=== PATIENT | female | born 1950 | race African-American/Black ===

== ENCOUNTER 2016-06-07 18:33 | Emergency (ER) | payer MEDICARE, MEDICAID ==
--- NOTE | 2016-06-07 18:50 | ER Document Report ---
ED Medical Screen (RME) - General Chief Complaint: Skin Problem Stated Complaint: BLISTERS/RASH ON BACK AND LEGS Notes: Rash to head back. Several siblings have similar rashes. I greeted and performed a rapid initial assessment of this patient. Comprehensive ED assessment and evaluation of the patient, analysis of test results and completion of the medical decision making process will be conducted by additional ED providers. TRAVEL OUTSIDE OF THE [place] IN LAST 30 DAYS: No - Related Data Allergies/Adverse Reactions: No Known Allergies Allergy (Verified 10/18/15 20:38) Past Medical History - Past Medical History Cardiac Medical History: Reports: Hx Hypertension Pulmonary Medical History: Reports: Hx Asthma Endocrine Medical History: Reports: Hx Diabetes Mellitus Type 1, Hx Diabetes Mellitus Type 2 GI Medical History: Reports: Hx Gastroesophageal Reflux Disease, Hx Hepatitis Psychiatric Medical History: Reports: Hx Depression Infectious Medical History: Reports: Hx Hepatitis Past Surgical History: Reports: Hx Abdominal Surgery - Per patient. - Immunizations Hx Diphtheria, Pertussis, Tetanus Vaccination: No Physical Exam - Vital signs Vitals: Temp Pulse Resp BP Pulse Ox 98.1 F 67 14 122/94 H 100 06/07/16 18:45 06/07/16 18:45 06/07/16 18:45 06/07/16 18:45 06/07/16 18:45 Course - Vital Signs Vital signs: Temp Pulse Resp BP Pulse Ox 98.1 F 67 14 122/94 H 100 06/07/16 18:45 06/07/16 18:45 06/07/16 18:45 06/07/16 18:45 06/07/16 18:45
[2016-06-07] MEDS ORDERED: DIPHENHYDRAMINE HCL 25 MG CAPSULE PO ONE (21:21)
--- NOTE | 2016-06-07 21:28 | ER Document Report ---
ED Skin Rash/Insect Bite/Abscs - General Chief Complaint: Skin Problem Stated Complaint: BLISTERS/RASH ON BACK AND LEGS Time seen by provider: 21:20 Notes: Patient is a 66-year-old female with a history of hepatitis C that comes emergency department for a rash that is been present for a month but is worsening. Rash is present on arms, legs, back. She states she cannot stop scratching the rash because it is itchy, states that white bumps appear at the top of the rash and then she scratches it off and remove is a "little ribbon paperlike substance" which then resolves the area. Denies any fever chills, redness, she states that she's been applying a cream from her provider which is clotrimazole and betamethasone, she is currently taking Augmentin, she states the rash has not stopped. Take Benadryl helps but itching soon returned. She has not seen a coffee grinder. TRAVEL OUTSIDE OF THE [place] IN LAST 30 DAYS: No - Related Data Allergies/Adverse Reactions: No Known Allergies Allergy (Verified 10/18/15 20:38) Past Medical History - General Information source: Patient - Social History Smoking Status: Never Smoker Frequency of alcohol use: None Drug Abuse: None Lives with: Alone Family History: Reviewed & Not Pertinent Patient has suicidal ideation: No Patient has homicidal ideation: No - Past Medical History Cardiac Medical History: Reports: Hx Hypertension Pulmonary Medical History: Reports: Hx Asthma Endocrine Medical History: Reports: Hx Diabetes Mellitus Type 2 Renal/ Medical History: Denies: Hx Peritoneal Dialysis GI Medical History: Reports: Hx Gastroesophageal Reflux Disease, Hx Hepatitis Psychiatric Medical History: Reports: Hx Depression Infectious Medical History: Reports: Hx Hepatitis Past Surgical History: Reports: Hx Abdominal Surgery - Per patient. - Immunizations Hx Diphtheria, Pertussis, Tetanus Vaccination: No Review of Systems - Review of Systems Constitutional: No symptoms reported EENT: No symptoms reported Cardiovascular: No symptoms reported Respiratory: No symptoms reported Gastrointestinal: No symptoms reported Genitourinary: No symptoms reported Female Genitourinary: No symptoms reported Musculoskeletal: No symptoms reported Skin: See HPI Hematologic/Lymphatic: No symptoms reported Neurological/Psychological: No symptoms reported Physical Exam - Vital signs Vitals: Temp Pulse Resp BP Pulse Ox 98.1 F 67 14 122/94 H 100 06/07/16 18:45 06/07/16 18:45 06/07/16 18:45 06/07/16 18:45 06/07/16 18:45 Interpretation: Normal - General General appearance: Appears well, Alert, Anxious In distress: None - Patient scratching frequently, otherwise no distress noted - HEENT Head: Normocephalic, Atraumatic Eyes: Normal Pupils: PERRL - Respiratory Respiratory status: No respiratory distress Chest status: Nontender Breath sounds: Normal Chest palpation: Normal - Cardiovascular Rhythm: Regular Heart sounds: Normal auscultation Murmur: No - Abdominal Inspection: Normal Distension: No distension Bowel sounds: Normal Tenderness: Nontender Organomegaly: No organomegaly - Back Back: Normal, Nontender - Extremities General upper extremity: Normal inspection, Nontender, Normal color, Normal ROM , Normal temperature General lower extremity: Normal inspection, Nontender, Normal color, Normal ROM , Normal temperature, Normal weight bearing. No: Noman's sign - Neurological Neuro grossly intact: Yes Cognition: Normal Orientation: AAOx4 Liscomb Coma Scale Eye Opening: Spontaneous Liscomb Coma Scale Verbal: Oriented Chelsea Coma Scale Motor: Obeys Commands Chelsea Coma Scale Total: 15 Speech: Normal Motor strength normal: LUE, RUE, LLE, RLE Sensory: Normal - Psychological Associated symptoms: Normal affect, Normal mood - Skin Skin Temperature: Warm Skin Moisture: Dry Skin Color: Normal Skin irregularity: Rash - Diffuse rash over the body, itchy, papular areas have small white surface but are not significantly tender, there is no concerning warmth or erythema around the areas, the areas are scattered over the shoulders , back, arms, legs Course - Re-evaluation Re-evalutation: Diffuse rash over the body, itchy, areas have small white surface but are not significantly tender, there is no concerning warmth or erythema around the areas , the areas are scattered over the shoulders, back, arms, legs. Patient constantly scratching. Unremarkable examination otherwise. Patient reports that use of her cream has helped but has not resolved her problem, patient is a [address] on Augmentin, advised to continue this because she will not stop scratching (to help avoid infection). Discussed starting steroids versus dermatology referral, agreed to dermatology referral is probably the best for patient's diagnosis of ongoing issue for the past month. Discussed return precautions including fever, spreading redness, swelling, or any other concerning symptoms. Patient states understanding and agreement. - Vital Signs Vital signs: Temp Pulse Resp BP Pulse Ox 98.3 F 100 18 146/85 H 100 06/07/16 21:52 06/07/16 21:52 06/07/16 21:52 06/07/16 21:52 06/07/16 21:52 Discharge - Discharge Clinical Impression: Skin rash Condition: Stable Disposition: HOME, SELF-CARE Additional Instructions: Take the Benadryl as prescribed for itching, tried to rub instead of scratch, because of our he scratched areas that could be infected in the future please take the Augmentin as prescribed. Continue the cream as directed, however please call tomorrow and follow-up with dermatology for diagnosis and management of this rash. Return to the emergency department for any concerning or worsening symptoms including redness or abnormal heat to the skin, fever, or any other concerning symptoms. Prescriptions: Betamethasone Dipropionate 1 applic TP DAILY #1 tube Diphenhydramine HCl [Benadryl] 25 mg PO Q6 PRN #30 capsule PRN Reason: Referrals: EWELINA AVELAR DO [ACTIVE STAFF] - Follow up tomorrow
[2016-06-07 21:54] VITALS: BP 146/85
== END 2016-06-07 21:52 | disposition home or self-care (01) ==
LOC: ER 18:33
DX: R21 Rash and other nonspecific skin eruption (principal); L29.8 Other pruritus; Z86.19 Personal history of other infectious and parasitic diseases; E11.9 Type 2 diabetes mellitus without complications; I10 Essential (primary) hypertension; J45.909 Unspecified asthma, uncomplicated
CPT/HCPCS: 99283

== ENCOUNTER 2016-08-17 16:56 | Emergency (ER) | payer MEDICARE ==
[2016-08-17] MEDS ORDERED: IBUPROFEN 600 MG TABLET PO ONE (18:48)
--- NOTE | 2016-08-17 19:39 | ER Document Report ---
HPI - HPI Patient complains to provider of: fall Pain Level: 2 Context: Patient is a 66-year-old female presents emergency Department complaining of a fall with neck pain and shoulder pain for the past 2 days. Patient denies any head injury, LOC, nausea, vomiting, altered mental status, dizziness or confusion. Patient states that she has pain along her neck as well as her left shoulder. Pain with movement. Denies any previous injury to the sites for surgeries. Medical history significant for type I diabetes, hypertension Sees Dr. Valerio De La Fuente his primary care - CARDIOVASCULAR Cardiovascular: DENIES: Chest pain - REPRODUCTIVE Reproductive: DENIES: : - DERM Skin Color: Normal Past Medical History - Social History Smoking Status: Former Smoker Chew tobacco use (# tins/day): No Frequency of alcohol use: None Drug Abuse: None Family History: Reviewed & Not Pertinent - Past Medical History Cardiac Medical History: Reports: Hx Hypertension Pulmonary Medical History: Reports: Hx Asthma Endocrine Medical History: Reports: Hx Diabetes Mellitus Type 1, Hx Diabetes Mellitus Type 2 Renal/ Medical History: Denies: Hx Peritoneal Dialysis GI Medical History: Reports: Hx Gastroesophageal Reflux Disease, Hx Hepatitis Psychiatric Medical History: Reports: Hx Depression Infectious Medical History: Reports: Hx Hepatitis Past Surgical History: Reports: Hx Abdominal Surgery - Per patient. - Immunizations Hx Diphtheria, Pertussis, Tetanus Vaccination: No Vertical Provider Document - CONSTITUTIONAL Agree With Documented VS: Yes Exam Limitations: No Limitations General Appearance: WD/WN, No Apparent Distress Notes: PHYSICAL EXAM GENERAL: Alert, interacts well. HEAD: Normocephalic, atraumatic. EYES: Pupils equal, round, and reactive to light. Extraocular movements intact. ENT: Oral mucosa moist, tongue midline. NECK: Full range of motion. Supple. Trachea midline. LUNGS: Clear to auscultation bilaterally, no wheezes, rales, or rhonchi. No respiratory distress. HEART: Regular rate and rhythm. No murmurs, gallops, or rubs. ABDOMEN: Soft, nondistended, nontender. No guarding, rebound, or rigidity.. Bowel sounds present in all 4 quadrants. EXTREMITIES: Moves all 4 extremities spontaneously. No edema, radial and dorsalis pedis pulses 2/4 bilaterally. No cyanosis. NEUROLOGICAL: Alert and oriented x4. Normal speech. PSYCH: Normal affect, normal mood. SKIN: Warm, dry, normal turgor. No rashes or lesions noted. - INFECTION CONTROL TRAVEL OUTSIDE OF THE [place] IN LAST 30 DAYS: No - RESPIRATORY O2 Sat by Pulse Oximetry: 100 Course - Re-evaluation Re-evalutation: 08/17/16 21:11 Patient is a 66-year-old female who is hemodynamically stable, no acute distress and afebrile. No evidence of fracture on x-ray. Discussed with patient muscular skeletal care for muscle strain and can follow-up with primary care as needed - Vital Signs Vital signs: Temp Pulse Resp BP Pulse Ox 98.4 F 111 H 149/87 H 100 08/17/16 17:39 08/17/16 17:39 08/17/16 17:39 08/17/16 17:39 - Diagnostic Test Radiology reviewed: Image reviewed, Reports reviewed Discharge - Discharge Clinical Impression: Muscle strain Condition: Good Disposition: HOME, SELF-CARE Instructions: Muscle Strain ([facility]), Elevation & Warmth ([facility]), Ice Packs ([facility]), Use of Ivgx-Vfs-Iuribpp Ibuprofen ([facility]), Acetaminophen Forms: Elevated Blood Pressure Referrals: VALERIO DE LA FUENTE MD [Primary Care Provider] - Follow up as needed
[2016-08-17 20:39] VITALS: BP 133/82
== END 2016-08-17 20:27 | disposition home or self-care (01) ==
LOC: ER 16:56
DX: S16.1XXA Strain of muscle, fascia and tendon at neck level, initial encounter (principal); M54.2 Cervicalgia; M25.519 Pain in unspecified shoulder; Z87.891 Personal history of nicotine dependence; W19.XXXA Unspecified fall, initial encounter
CPT/HCPCS: 72050; 99284

== ENCOUNTER 2017-04-23 22:45 | Emergency (ER) | payer MEDICARE, MEDICAID ==
--- NOTE | 2017-04-24 00:16 | ER Document Report ---
HPI - HPI Patient complains to provider of: lump on back Onset: Other - few weeks Pain Level: Denies Context: 67 yo female with chronic pruritis for years has2 tereso middle thoracic back that she can feel but not see. Wants them checked. Has sen dr. avelar in past. Has very long acrylic nails. Associated Symptoms: None Exacerbated by: Denies Relieved by: Denies - ROS ROS below otherwise negative: Yes Systems Reviewed and Negative: Yes All other systems reviewed and negative - REPRODUCTIVE Reproductive: DENIES: : Past Medical History - Social History Smoking Status: Unknown if Ever Smoked Frequency of alcohol use: None Drug Abuse: None Lives with: Family Family History: Reviewed & Not Pertinent - Past Medical History Cardiac Medical History: Reports: Hx Hypertension Pulmonary Medical History: Reports: Hx Asthma Endocrine Medical History: Reports: Hx Diabetes Mellitus Type 2 Renal/ Medical History: Denies: Hx Peritoneal Dialysis GI Medical History: Reports: Hx Gastroesophageal Reflux Disease, Hx Hepatitis Psychiatric Medical History: Reports: Hx Depression Infectious Medical History: Reports: Hx Hepatitis Past Surgical History: Reports: Hx Abdominal Surgery - Per patient. - Immunizations Hx Diphtheria, Pertussis, Tetanus Vaccination: No Vertical Provider Document - CONSTITUTIONAL Agree With Documented VS: Yes Exam Limitations: No Limitations General Appearance: No Apparent Distress - INFECTION CONTROL TRAVEL OUTSIDE OF THE [place] IN LAST 30 DAYS: No - HEENT HEENT: Normal ENT Exam - NECK Neck: Supple. negative: Lymphadenopathy-Left, Lymphadenopathy-Right - RESPIRATORY O2 Sat by Pulse Oximetry: 100 - MUSCULOSKELETAL/EXTREMETIES Musculoskeletal/Extremeties: MAEW - NEURO Level of Consciousness: Awake, Alert - DERM Notes: extensive macular and papularchronic hyperpigmented lesions covering areas of body that she can scratch. 2 small papules healing mid t spine that are not infected. Course - Vital Signs Vital signs: Temp Pulse Resp BP Pulse Ox 98 F 98 20 150/100 H 100 04/23/17 23:22 04/23/17 23:22 04/23/17 23:22 04/23/17 23:22 04/23/17 23:22 Discharge - Discharge Clinical Impression: chronic itching/scratching Condition: Good Disposition: HOME, SELF-CARE Instructions: Itching, Nonspecific ([facility]) Additional Instructions: take your acrylic nails off and keep them off over the counter benadryl for itching see dr. avelar again next week keep skin moist with aquaphor ointment Referrals: EWELINA AVELAR, [ACTIVE STAFF] - Follow up as needed
[2017-04-24] MEDS ORDERED: DIPHENHYDRAMINE HCL 25 MG CAPSULE PO ONE (00:41)
[2017-04-24 01:27] VITALS: BP 153/81
== END 2017-04-24 01:27 | disposition home or self-care (01) ==
LOC: ER 22:45
DX: L29.9 Pruritus, unspecified (principal); R22.2 Localized swelling, mass and lump, trunk; I10 Essential (primary) hypertension; E11.9 Type 2 diabetes mellitus without complications; K21.9 Gastro-esophageal reflux disease without esophagitis
CPT/HCPCS: 99282; A9270

== ENCOUNTER 2017-04-30 18:25 | Emergency (ER) | payer MEDICARE, MEDICAID ==
[2017-04-30] MEDS ORDERED: HYDROCODONE/ACETAMINOPHEN 5-325 MG TABLET PO ONE (18:45)
--- NOTE | 2017-04-30 19:00 | ER Document Report ---
ED Medical Screen (RME) - General Mode of Arrival: Ambulatory Information source: Patient TRAVEL OUTSIDE OF THE [place] IN LAST 30 DAYS: No - General Chief Complaint: Syncope Stated Complaint: FALL/HEAD PAIN Time Seen by Provider: 04/30/17 18:39 Notes: Patient is a 67 year old female presenting to the emergency department complaining of a syncopal episode secondary to a fall. Patient states that she was walking towards her door when she ran into her window, hit her head, and proceeded to have a syncopal episode. Patient states she was unconscious for a few minutes. Patient is also complaining of left hip pain. I have greeted and performed a rapid initial assessment of this patient. A comprehensive ED assessment and evaluation of the patient, analysis of test results and completion of the medical decision making process will be conducted by additional ED providers. (SIMBA DUNN) - Related Data Allergies/Adverse Reactions: No Known Allergies Allergy (Verified 04/30/17 18:26) Past Medical History - Past Medical History Cardiac Medical History: Reports: Hx Hypertension Pulmonary Medical History: Reports: Hx Asthma Endocrine Medical History: Reports: Hx Diabetes Mellitus Type 1, Hx Diabetes Mellitus Type 2 Renal/ Medical History: Denies: Hx Peritoneal Dialysis GI Medical History: Reports: Hx Gastroesophageal Reflux Disease, Hx Hepatitis Psychiatric Medical History: Reports: Hx Depression Infectious Medical History: Reports: Hx Hepatitis Past Surgical History: Reports: Hx Abdominal Surgery - Per patient. - Immunizations Hx Diphtheria, Pertussis, Tetanus Vaccination: No Physical Exam - Vital signs Vitals: Temp Pulse Resp BP Pulse Ox 97.9 F 82 20 140/102 H 100 04/30/17 18:30 04/30/17 18:30 04/30/17 18:30 04/30/17 18:30 04/30/17 18:30 - Notes Notes: GENERAL: Alert, interacts well. No acute distress. LUNGS: Clear to auscultation bilaterally, no wheezes, rales, or rhonchi. No respiratory distress. HEART: Regular rate and rhythm. No murmurs, gallops, or rubs. EXTREMITIES: Left SI joint is tender to palpation. (SIMBA DUNN) - Vital Signs Vital signs: Temp Pulse Resp BP Pulse Ox 97.9 F 82 20 140/102 H 100 04/30/17 18:30 04/30/17 18:30 04/30/17 18:30 04/30/17 18:30 04/30/17 18:30 Scribe Documentation - Scribe Written by Keyana:: Keyana Drake, 04/30/2017 19:01 acting as scribe for :: Duarte
--- NOTE | 2017-04-30 19:37 | RADIOLOGY REPORT (SQ) ---
EXAM DESCRIPTION: CT HEAD WITHOUT COMPLETED DATE/TIME: 04/30/2017 7:17 pm REASON FOR STUDY: fall, hit head, LOC, hit left hip COMPARISON: None. TECHNIQUE: Axial images acquired through the brain without intravenous contrast. Images reviewed wi th bone, brain and subdural windows. Images stored on PACS. All CT scanners at this facility use dose modulation, iterative reconstruction, and/or weight based d osing when appropriate to reduce radiation dose to as low as reasonably achievable (ALARA). [facility]: Dose Right [facility]: CareDose [facility]: Dose Right [facility]: Teradose 4D [facility]: Engage Mobility RADIATION DOSE: CT Rad equipment meets quality standard of care and radiation dose reduction techniq ues were employed. CTDIvol: 64.6 mGy. DLP: 1034 mGy-cm. mGy. LIMITATIONS: None. FINDINGS: VENTRICLES: Age-appropriate. CEREBRUM: No masses. No hemorrhage. No midline shift. Areas of low density in the white matter mos t likely due to chronic micro-vascular ischemic change. No evidence for acute infarction. CEREBELLUM: No masses. No hemorrhage. No alteration of density. No evidence for acute infarction. EXTRAAXIAL SPACES: Mild age-related involutional change. No fluid collections. No masses. ORBITS AND GLOBE: No intra- or extraconal masses. Normal contour of globe without masses. CALVARIUM: No fracture. PARANASAL SINUSES: No fluid or mucosal thickening. SOFT TISSUES: No mass or hematoma. OTHER: No other significant finding. IMPRESSION: MILD CHRONIC CHANGES OF ATROPHY AND MICROVASCULAR ISCHEMIA. NO ACUTE PROCESS. EVIDENCE OF ACUTE STROKE: NO. TECHNICAL DOCUMENTATION: JOB ID: [id number] [place]-72 Quality ID # [id number]: Final reports with documentation of one or more dose reduction techniques (e.g., Au tomated exposure control, adjustment of the mA and/or kV according to patient size, use of iterative reconstruction technique) 2010 [employer]- All Rights Reserved
--- NOTE | 2017-04-30 19:41 | RADIOLOGY REPORT (SQ) ---
EXAM DESCRIPTION: HIP BILATERAL COMPLETED DATE/TIME: 04/30/2017 7:27 pm REASON FOR STUDY: fall, hit head, LOC, hit left hip and pelvis pain COMPARISON: None. NUMBER OF VIEWS: Two views. TECHNIQUE: AP pelvis and additional frog-leg view of the right and left hip. LIMITATIONS: None. FINDINGS: MINERALIZATION: Normal. PRIMARY HIP: No fracture or dislocation. No worrisome bone lesions. OPPOSITE HIP: No fracture or dislocation. No worrisome bone lesions. PUBIS AND ISCHIUM: No fracture. PELVIS: No fracture. SACRUM: No fracture or dislocation. No worrisome bone lesions. LOWER LUMBAR SPINE: No fracture or dislocation. No worrisome bone lesions. No significant disc disea se. SOFT TISSUES: No findings. OTHER: No other significant finding. IMPRESSION: No fracture identified. TECHNICAL DOCUMENTATION: JOB ID: [id number] [place]-72 2010 [employer]- All Rights Reserved
--- NOTE | 2017-04-30 20:00 | ER Document Report ---
ED Fall - General Mode of Arrival: Ambulatory Information source: Patient TRAVEL OUTSIDE OF THE [place] IN LAST 30 DAYS: No - HPI Occurred: This evening Where: Outdoors Context: Lost balance, Fell from standing Associated symptoms: Lost consciousness Location of injury/pain: Other - see notes above - General Chief Complaint: Syncope Stated Complaint: FALL/HEAD PAIN Time Seen by Provider: 04/30/17 18:39 Notes: 67 year old female presents to the ED complaining of falling and losing consciousness just prior to arrival. Patient reports that [place] when she ran into a window next to the swinging door, fell back, hit her posterior head, and lost consciousness for a few minutes. Patient reports that she was helped up by bystanders. Patient complains of left hip pain at bed side. Patient has been receiving 60 norco per month secondary to her back and head pain. PCP: Dr. De La Fuente ([facility]) - Related data Allergies/Adverse Reactions: No Known Allergies Allergy (Verified 04/30/17 18:26) Past Medical History - General Information source: Patient - Social History Smoking Status: Unknown if Ever Smoked Family History: Reviewed & Not Pertinent Patient has suicidal ideation: No Patient has homicidal ideation: No - Past Medical History Cardiac Medical History: Reports: Hx Hypertension Pulmonary Medical History: Reports: Hx Asthma Endocrine Medical History: Reports: Hx Diabetes Mellitus Type 1 - on insulin Renal/ Medical History: Denies: Hx Peritoneal Dialysis GI Medical History: Reports: Hx Gastroesophageal Reflux Disease, Hx Hepatitis Psychiatric Medical History: Reports: Hx Depression Infectious Medical History: Reports: Hx Hepatitis Past Surgical History: Reports: Hx Abdominal Surgery - Per patient. - Immunizations Hx Diphtheria, Pertussis, Tetanus Vaccination: No Review of Systems - Review of Systems Constitutional: No symptoms reported EENT: No symptoms reported Cardiovascular: No symptoms reported Respiratory: No symptoms reported Gastrointestinal: No symptoms reported Genitourinary: No symptoms reported Female Genitourinary: No symptoms reported Musculoskeletal: See HPI, Joint pain - left hip Skin: No symptoms reported Hematologic/Lymphatic: No symptoms reported Neurological/Psychological: No symptoms reported -: Yes All other systems reviewed and negative Physical Exam - General General appearance: Alert In distress: None - HEENT Head: Normocephalic, Atraumatic Eyes: Normal Extraocular movements intact: Yes Pupils: PERRL - Respiratory Respiratory status: No respiratory distress Breath sounds: Normal - Cardiovascular Rhythm: Regular Heart sounds: Normal auscultation - Abdominal Inspection: Normal - Back Back: Tender - lower lateral lumbar muscles are tender to palpate, bilaterally. No: Normal - Extremities General upper extremity: Normal inspection, Normal ROM General lower extremity: Normal inspection, Normal ROM - Neurological Neuro grossly intact: Yes - Psychological Associated symptoms: Normal affect, Normal mood - Skin Skin Temperature: Warm Skin Moisture: Dry Skin Color: Normal - Vital signs Vitals: Temp Pulse Resp BP Pulse Ox 97.9 F 82 20 140/102 H 100 04/30/17 18:30 04/30/17 18:30 04/30/17 18:30 04/30/17 18:30 04/30/17 18:30 - Vital Signs Vital signs: Temp Pulse Resp BP Pulse Ox 97.9 F 82 20 140/102 H 100 04/30/17 18:30 04/30/17 18:30 04/30/17 18:30 04/30/17 18:30 04/30/17 18:30 Discharge - Discharge Clinical Impression: Fall Qualifiers: Encounter type: initial encounter Qualified Code(s): W19.XXXA - Unspecified fall, initial encounter Head contusion Qualifiers: Encounter type: initial encounter Contusion of head detail: scalp Qualified Code(s): S00.03XA - Contusion of scalp, initial encounter Low back pain Qualifiers: Chronicity: acute Back pain laterality: bilateral Sciatica presence: without sciatica Qualified Code(s): M54.5 - Low back pain Additional Instructions: For tonight you should find a comfortable chair to rest in. Try ice packs to the painful areas you develop after the fall. Take Tylenol for pain as needed. Follow-up with Dr. De La Fuente next week for your chronic pain management. RETURN TO THE EMERGENCY ROOM IF ANY NEW OR WORSENING SYMPTOMS. Referrals: NAE DE LA FUENTE MD [Primary Care Provider] - Follow up in 3-5 days Scribe Attestation: 04/30/17 20:04 I personally performed the services described in the documentation, reviewed and edited the documentation which was dictated to the scribe in my presence, and it accurately records my words and actions. (ELVIN NORMAN) Scribe Documentation - Scribe Written by Siomaraibe:: Keyana Faye, 04/30/20172010 acting as scribe for :: Zulma
[2017-04-30 20:43] VITALS: BP 150/87
== END 2017-04-30 20:48 | disposition home or self-care (01) ==
LOC: ER 18:25
DX: S00.03XA Contusion of scalp, initial encounter (principal); R55 Syncope and collapse; W18.09XA Striking against other object with subsequent fall, initial encounter; Y93.89 Activity, other specified; Y92.59 Other trade areas as the place of occurrence of the external cause; M25.552 Pain in left hip; M54.5 Low back pain; R51 Headache; Z79.891 Long term (current) use of opiate analgesic; I10 Essential (primary) hypertension; J45.909 Unspecified asthma, uncomplicated; E10.9 Type 1 diabetes mellitus without complications
CPT/HCPCS: 99284; 73522; 70450; A9270

== ENCOUNTER 2017-06-02 20:38 | Emergency (ER) | payer MEDICARE, MEDICAID ==
--- NOTE | 2017-06-02 21:51 | ER Document Report ---
ED Medical Screen (RME) - General Chief Complaint: High Blood Sugar Stated Complaint: BLOOD SUGAR PROBLEMS Time Seen by Provider: 06/02/17 21:45 Mode of Arrival: Wheelchair Information source: Patient, Relative TRAVEL OUTSIDE OF THE [place] IN LAST 30 DAYS: No - HPI Onset: Last week Notes: 06/02/17 21:50 Patient arrives with multiple complaints including a cough for approximately 1 week. She complains of right posterior hip pain for about a month now. She states that she fell a month ago and was seen here at that time but continues to have pain. She states that she started having nausea vomiting today. She states that food will not stay down. Patient is a insulin-dependent diabetic, and states she has been out of her needles for the last couple of days so she has not been taking her insulin and her blood sugar is elevated. Patient is in no distress at this time. Abdomen is soft. She has some mild tenderness to palpation to the right posterior pelvis. Patient was evaluated in triage and was medically screened. Any pertinent orders based on the patient's complaints were ordered at this time. Patient will require further evaluation and will be taken to a room for further evaluation by another provider. This was explained to the patient and/or family at this time. - Related Data Allergies/Adverse Reactions: No Known Allergies Allergy (Verified 04/30/17 18:26) Past Medical History - Past Medical History Cardiac Medical History: Reports: Hx Hypertension Pulmonary Medical History: Reports: Hx Asthma Endocrine Medical History: Reports: Hx Diabetes Mellitus Type 1 - on insulin, Hx Diabetes Mellitus Type 2 Renal/ Medical History: Denies: Hx Peritoneal Dialysis GI Medical History: Reports: Hx Gastroesophageal Reflux Disease, Hx Hepatitis Psychiatric Medical History: Reports: Hx Depression Infectious Medical History: Reports: Hx Hepatitis Past Surgical History: Reports: Hx Abdominal Surgery - Per patient. - Immunizations Hx Diphtheria, Pertussis, Tetanus Vaccination: No Physical Exam - Vital signs Vitals: Temp Pulse Resp BP Pulse Ox 98.4 F 83 20 143/77 H 100 06/02/17 20:50 06/02/17 20:50 06/02/17 20:50 06/02/17 20:50 06/02/17 20:50 Course - Vital Signs Vital signs: Temp Pulse Resp BP Pulse Ox 98.4 F 83 20 143/77 H 100 06/02/17 20:50 06/02/17 20:50 06/02/17 20:50 06/02/17 20:50 06/02/17 20:50 - Laboratory Laboratory results interpreted by me: 06/02/17 20:47 POC Glucose 354 H
--- NOTE | 2017-06-02 22:55 | RADIOLOGY REPORT (SQ) ---
EXAM DESCRIPTION: CHEST PA/LAT COMPLETED DATE/TIME: 06/02/2017 10:32 pm REASON FOR STUDY: cough x 1 week COMPARISON: None. EXAM PARAMETERS: NUMBER OF VIEWS: two views TECHNIQUE: Digital Frontal and Lateral radiographic views of the chest acquired. RADIATION DOSE: NA LIMITATIONS: none FINDINGS: LUNGS AND PLEURA: No acute opacities, masses or pneumothorax. No pleural effusion. MEDIASTINUM AND HILAR STRUCTURES: No masses or contour abnormalities. HEART AND VASCULAR STRUCTURES: Heart normal size. No evidence for failure. BONES: No acute findings. HARDWARE: None in the chest. OTHER: No other significant finding. IMPRESSION: No acute findings. TECHNICAL DOCUMENTATION: JOB ID: [id number] [place]-72 2010 [employer]- All Rights Reserved
--- NOTE | 2017-06-02 22:58 | RADIOLOGY REPORT (SQ) ---
EXAM DESCRIPTION: HIP RIGHT AP/LATERAL COMPLETED DATE/TIME: 06/02/2017 10:32 pm REASON FOR STUDY: fall, pain COMPARISON: None. NUMBER OF VIEWS: Two views. TECHNIQUE: AP pelvis and additional frog-leg view of the right hip. LIMITATIONS: None. FINDINGS: MINERALIZATION: Normal. RIGHT HIP: No fracture or dislocation. No worrisome bone lesions. LEFT HIP: No fracture or dislocation. No worrisome bone lesions. PUBIS AND ISCHIUM: No fracture. PELVIS: No fracture. SACRUM: No fracture or dislocation. No worrisome bone lesions. LOWER LUMBAR SPINE: No fracture or dislocation. No worrisome bone lesions. No significant disc disea se. SOFT TISSUES: No findings. OTHER: No other significant finding. IMPRESSION: NO RADIOGRAPHIC EVIDENCE OF ACUTE INJURY. TECHNICAL DOCUMENTATION: JOB ID: [id number] [place]-72 2010 [employer]- All Rights Reserved
[2017-06-02 23:40] LABS: APPEARANCE,URINE CLEAR; BILIRUBIN,URINE NEGATIVE (NEGATIVE); COLOR,URINE YELLOW; GLUCOSE, URINE >=500 mg/dL (NEGATIVE); KETONES,URINE NEGATIVE (NEGATIVE); LEUKOCYTE ESTERASE,URINE NEGATIVE (NEGATIVE); NITRITE,URINE NEGATIVE (NEGATIVE); PROTEIN,URINE >=500 mg/dL (NEGATIVE); URINE SPECIFIC GRAVITY 1.036; UROBILINOGEN,URINE NEGATIVE mg/dL (<2.0)
[2017-06-02 23:40] LABS: ABSOLUTE BASOPHILS # (AUTO) 0.1 10^3/uL (0.0-0.2); ABSOLUTE LYMPHOCYTES (AUTO) 2.3 10^3/uL (0.5-4.7); ABSOLUTE MONOCYTES (AUTO) 0.6 10^3/uL (0.1-1.4); ABSOLUTE NEUT (AUTO) 1.8 10^3/uL (1.7-8.2); BASOPHILS % (AUTO) 1.1 % (0-2); EOSINOPHILS % (AUTO) 0.5 % (0-6); HEMOGLOBIN 13.3 g/dL (12.0-15.5); LYMPHOCYTES % (AUTO) 49.5 % (13-45); MEAN CORPUSCULAR HEMOGLOBIN 28.9 pg (27.0-33.4); MEAN CORPUSCULAR HGB CONC 32.5 g/dL (32.0-36.0); MEAN CORPUSCULAR VOLUME 89 fl (80-97); MONOCYTES % (AUTO) 11.7 % (3-13); PLATELET COUNT 249 10^3/uL (150-450); RED BLOOD COUNT 4.62 10^6/uL (3.72-5.28); RED CELL DISTRIBUTION WIDTH 13.1 % (11.5-14.0); SEGMENTED NEUTROPHILS % (AUTO) 37.2 % (42-78); TOTAL CELLS COUNTED % (AUTO) 100 %; WHITE BLOOD COUNT 4.7 10^3/uL (4.0-10.5)
[2017-06-02] MEDS ORDERED: NORMAL SALINE 1000 ML 1,000 ML IV ONE (23:48)
[2017-06-02] MEDS ORDERED: FAMOTIDINE 20 MG TABLET PO ONE (23:48)
[2017-06-02] MEDS ORDERED: DIPHENHYDRAMINE HCL 25 MG CAPSULE PO ONE (23:49)
--- NOTE | 2017-06-02 23:50 | ER Document Report ---
ED General - General Chief Complaint: High Blood Sugar Stated Complaint: BLOOD SUGAR PROBLEMS Time Seen by Provider: 06/02/17 21:45 Mode of Arrival: Wheelchair Notes: Patient is a 67-year-old female who comes emergency department multiple complaints. She states that she is very thirsty, when she lies down she feels reflux, she states she tried to eat earlier and she vomited, she states she has been out of her insulin pens for the past couple of days (she has insulin but no equipment to use it). She also states she has had a cough when she feels her reflux for about a week, she also has pains in her right hip/lower back for the past month which is intermittent. She denies fever or chills, chest pain, shortness of breath. Past medical history of hypertension, asthma, GERD, insulin-dependent type 2 diabetes. She does not recall her medications and she did not bring a list with her. TRAVEL OUTSIDE OF THE [place] IN LAST 30 DAYS: No - Related Data Allergies/Adverse Reactions: No Known Allergies Allergy (Verified 04/30/17 18:26) Past Medical History - General Information source: Patient - Social History Smoking Status: Never Smoker Chew tobacco use (# tins/day): No Frequency of alcohol use: None Drug Abuse: None Lives with: Family Family History: Reviewed & Not Pertinent Patient has suicidal ideation: No Patient has homicidal ideation: No - Past Medical History Cardiac Medical History: Reports: Hx Hypertension Pulmonary Medical History: Reports: Hx Asthma Endocrine Medical History: Reports: Hx Diabetes Mellitus Type 2 Renal/ Medical History: Denies: Hx Peritoneal Dialysis GI Medical History: Reports: Hx Gastroesophageal Reflux Disease, Hx Hepatitis Psychiatric Medical History: Reports: Hx Depression Infectious Medical History: Reports: Hx Hepatitis Past Surgical History: Reports: Hx Abdominal Surgery - Per patient. - Immunizations Hx Diphtheria, Pertussis, Tetanus Vaccination: No Review of Systems - Review of Systems Constitutional: See HPI EENT: No symptoms reported Cardiovascular: No symptoms reported Respiratory: No symptoms reported Gastrointestinal: See HPI Genitourinary: No symptoms reported Female Genitourinary: No symptoms reported Musculoskeletal: No symptoms reported Skin: No symptoms reported Hematologic/Lymphatic: No symptoms reported Neurological/Psychological: No symptoms reported Physical Exam - Vital signs Vitals: Temp Pulse Resp BP Pulse Ox 98.4 F 83 20 143/77 H 100 06/02/17 20:50 06/02/17 20:50 06/02/17 20:50 06/02/17 20:50 06/02/17 20:50 Interpretation: Normal - General General appearance: Appears well, Alert In distress: None - HEENT Head: Normocephalic, Atraumatic Eyes: Normal Conjunctiva: Normal Extraocular movements intact: Yes Eyelashes: Normal Pupils: PERRL Sinus: Normal Nasal: Normal Mouth/Lips: Normal Mucous membranes: Dry Pharynx: Normal Neck: Normal - Respiratory Respiratory status: No respiratory distress Chest status: Nontender Breath sounds: Normal Chest palpation: Normal - Cardiovascular Rhythm: Regular. No: Tachycardia Heart sounds: Normal auscultation, S1 appreciated, S2 appreciated Murmur: No - Abdominal Inspection: Normal Distension: No distension Bowel sounds: Normal Tenderness: Nontender. No: Tender, Guarding Organomegaly: No organomegaly - Back Back: Normal, Nontender. No: Tender - Extremities General upper extremity: Normal inspection, Nontender, Normal color, Normal ROM , Normal temperature General lower extremity: Normal inspection, Nontender, Normal color, Normal ROM , Normal temperature, Normal weight bearing. No: Noman's sign - Neurological Neuro grossly intact: Yes Cognition: Normal Orientation: AAOx4 [place] Coma Scale Eye Opening: Spontaneous [place] Coma Scale Verbal: Oriented [place] Coma Scale Motor: Obeys Commands [place] Coma Scale Total: 15 Speech: Normal Motor strength normal: LUE, RUE, LLE, RLE Sensory: Normal - Psychological Associated symptoms: Normal affect, Normal mood - Skin Skin Temperature: Warm Skin Moisture: Dry Skin Color: Normal Skin irregularity: other - Scattered areas over arms, back, abdomen, legs of what look like healed insect bites that have excoriations over them, no significant erythema, induration, or fluctuance Course - Re-evaluation Re-evalutation: Soft abdomen on exam, slightly dry mucous membranes, no tachycardia, no hypotension. CBC unremarkable, chemistry shows hyperglycemia but no acidosis with normal bicarbonate and anion gap. No ketones in the urine. Patient given IV fluids, insulin, she is tolerating fluids by mouth, on reevaluation she states she feels great. She asks for something for itching, she was provided with this. Granddaughter had asked that patient have a case picker consult placed because patient states she does not want to live with her granddaughter but granddaughter is concerned about her current living situation. This was placed. Patient states satisfaction with this idea. Patient states she has insulin but she is out of syringes to give herself the insulin. She was provided with a limited amount pending follow-up with primary care. Discussed follow-up, return precautions, patient states satisfaction and agreement. 06/03/17 Patient asks for a prescription of something for her itching. - Vital Signs Vital signs: Temp Pulse Resp BP Pulse Ox 98.1 F 80 18 172/91 H 99 06/03/17 03:23 06/03/17 03:23 06/03/17 03:23 06/03/17 03:23 06/03/17 03:23 - Laboratory Result Diagrams: 06/02/17 23:00 06/02/17 23:00 Laboratory results interpreted by me: 06/02/17 06/02/17 06/02/17 20:47 22:35 23:00 Seg Neutrophils % 37.2 L Lymphocytes % 49.5 H Sodium BUN Glucose POC Glucose 354 H Direct Bilirubin AST ALT Alkaline Phosphatase Albumin Urine Protein >=500 H Urine Glucose (UA) >=500 H 06/02/17 06/03/17 23:00 02:40 Seg Neutrophils % Lymphocytes % Sodium 133.7 L BUN 21 H Glucose 403 H* POC Glucose 270 H Direct Bilirubin 0.5 H AST 78 H ALT 79 H Alkaline Phosphatase 363 H Albumin 3.2 L Urine Protein Urine Glucose (UA) Discharge - Discharge Clinical Impression: Hyperglycemia, Dehydration, Pruritic condition Condition: Stable Disposition: HOME, SELF-CARE Additional Instructions: You have been given a limited supply of insulin syringes to use at home, you can either purchase more or have her primary care provider provided with more. A case picker consult has been placed, they will be following up with you to help assess for needs and to assist you. Return to emergency department for any concerning symptoms including vomiting, fever, or any other concerning symptoms. Prescriptions: Cetirizine HCl [Zyrtec 10 mg Tablet] 1 tab PO DAILY PRN #30 tablet PRN Reason: Referrals: NAE DE LA FUENTE MD [Primary Care Provider] - Follow up as needed
[2017-06-03 00:19] LABS: ALANINE AMINOTRANSFERASE 79 U/L (9-52); ALBUMIN 3.2 g/dL (3.5-5.0); ALKALINE PHOSPHATASE 363 U/L (38-126); ANION GAP 5 (5-19); ASPARTATE AMINO TRANSFERASE 78 U/L (14-36); BILIRUBIN,DIRECT 0.5 mg/dL (0.0-0.4); BILIRUBIN,TOTAL 0.6 mg/dL (0.2-1.3); BLOOD UREA NITROGEN 21 mg/dL (7-20); CALCIUM 9.9 mg/dL (8.4-10.2); CARBON DIOXIDE 29 mmol/L (22-30); CHLORIDE 100 mmol/L (98-107); POTASSIUM 4.7 mmol/L (3.6-5.0); SODIUM 133.7 mmol/L (137-145); TOTAL PROTEIN 7.5 g/dL (6.3-8.2)
[2017-06-03 00:35] LABS: GLUCOSE 403 mg/dL (75-110)
[2017-06-03] MEDS ORDERED: INSULIN REG, HUMAN 100 UNIT/ML 3 ML VIAL (PYX) SUBCUT ONE (00:53)
[2017-06-03 03:24] VITALS: BP 172/91
== END 2017-06-03 04:26 | disposition home or self-care (01) ==
LOC: ER 20:38
DX: E11.65 Type 2 diabetes mellitus with hyperglycemia (principal); E86.0 Dehydration; L29.9 Pruritus, unspecified; R63.1 Polydipsia; K21.9 Gastro-esophageal reflux disease without esophagitis; R05 Cough; I10 Essential (primary) hypertension
CPT/HCPCS: 99284; 96360; 36415; 82962; 85025; 80053; 81001; 71046; 73502; A9270 ×3; J7030; 82010; J1815

== ENCOUNTER 2017-06-20 22:13 | Emergency (ER) | payer MEDICARE, MEDICAID ==
[2017-06-21 00:21] LABS: APPEARANCE,URINE SLIGHTLY-CLOUDY; BILIRUBIN,URINE NEGATIVE (NEGATIVE); COLOR,URINE YELLOW; GLUCOSE, URINE >=500 mg/dL (NEGATIVE); KETONES,URINE NEGATIVE (NEGATIVE); LEUKOCYTE ESTERASE,URINE NEGATIVE (NEGATIVE); NITRITE,URINE NEGATIVE (NEGATIVE); PROTEIN,URINE 100 mg/dL (NEGATIVE); URINE SPECIFIC GRAVITY 1.033; UROBILINOGEN,URINE NEGATIVE mg/dL (<2.0)
[2017-06-21] MEDS ORDERED: INSULIN REG, HUMAN 100 UNIT/ML 3 ML VIAL (PYX) SUBCUT ONE (00:41)
[2017-06-21] MEDS ORDERED: NORMAL SALINE 1000 ML 1,000 ML IV ONE (00:41)
[2017-06-21] MEDS ORDERED: ONDANSETRON HCL INJ/PF 4 MG/2 ML SDV IV ONE (00:42)
--- NOTE | 2017-06-21 01:16 | ER Document Report ---
ED General - General Chief Complaint: High Blood Sugar Stated Complaint: BLOOD SUGAR PROBLEM Time Seen by Provider: 06/21/17 00:26 TRAVEL OUTSIDE OF THE [place] IN LAST 30 DAYS: No - HPI Patient complains to provider of: Elevated blood sugar Notes: Patient coming in for nausea vomiting elevated blood sugar. Patient states she has been compliant with her medication. Patient states recently saw Dr. osullivan also skin rash was prescribed a topical steroid however continues to have itching. Patient denies any fevers chills diarrhea. Patient states unable to check her blood sugars in the last 24 hours as she is out of her strips. - Related Data Allergies/Adverse Reactions: No Known Allergies Allergy (Verified 04/30/17 18:26) Past Medical History - Social History Smoking Status: Unknown if Ever Smoked Chew tobacco use (# tins/day): No Frequency of alcohol use: None Drug Abuse: None Family History: Reviewed & Not Pertinent Patient has suicidal ideation: No Patient has homicidal ideation: No - Past Medical History Cardiac Medical History: Reports: Hx Hypertension Pulmonary Medical History: Reports: Hx Asthma Endocrine Medical History: Reports: Hx Diabetes Mellitus Type 1 - on insulin, Hx Diabetes Mellitus Type 2 Renal/ Medical History: Denies: Hx Peritoneal Dialysis GI Medical History: Reports: Hx Gastroesophageal Reflux Disease, Hx Hepatitis Psychiatric Medical History: Reports: Hx Depression Infectious Medical History: Reports: Hx Hepatitis Past Surgical History: Reports: Hx Abdominal Surgery - Per patient. - Immunizations Hx Diphtheria, Pertussis, Tetanus Vaccination: No Review of Systems - Review of Systems Constitutional: Other - Hyperglycemia nausea itching EENT: No symptoms reported Cardiovascular: No symptoms reported Respiratory: No symptoms reported Gastrointestinal: No symptoms reported Genitourinary: No symptoms reported Female Genitourinary: No symptoms reported Musculoskeletal: No symptoms reported Skin: No symptoms reported Hematologic/Lymphatic: No symptoms reported Neurological/Psychological: No symptoms reported -: Yes All other systems reviewed and negative Physical Exam - Vital signs Vitals: Temp Pulse Resp BP Pulse Ox 99.2 F 102 H 16 151/89 H 99 06/20/17 23:07 06/20/17 23:07 06/20/17 23:07 06/20/17 23:07 06/20/17 23:07 Interpretation: Normal - General General appearance: Appears well, Alert - HEENT Head: Normocephalic, Atraumatic Eyes: Normal Pupils: PERRL - Respiratory Respiratory status: No respiratory distress Chest status: Nontender Breath sounds: Normal Chest palpation: Normal - Cardiovascular Rhythm: Regular Heart sounds: Normal auscultation Murmur: No - Abdominal Inspection: Normal Distension: No distension Bowel sounds: Normal Tenderness: Nontender Organomegaly: No organomegaly - Back Back: Normal, Nontender - Extremities General upper extremity: Normal inspection, Nontender, Normal color, Normal ROM , Normal temperature General lower extremity: Normal inspection, Nontender, Normal color, Normal ROM , Normal temperature, Normal weight bearing. No: Noman's sign - Neurological Neuro grossly intact: Yes Cognition: Normal Orientation: AAOx4 [place] Coma Scale Eye Opening: Spontaneous [place] Coma Scale Verbal: Oriented [place] Coma Scale Motor: Obeys Commands [place] Coma Scale Total: 15 Speech: Normal Motor strength normal: LUE, RUE, LLE, RLE Sensory: Normal - Psychological Associated symptoms: Normal affect, Normal mood - Skin Skin Temperature: Warm Skin Moisture: Dry Skin Color: Other - Diffuse pruritic rash on back possibly pityriasis Course - Re-evaluation Re-evalutation: 06/21/17 01:16 Accu-Chek shows blood sugar 405. Will check a basic laboratory studies evaluation for DKA [facility] 06/21/17 05:09 After insulin fluids sugar down to 85. Patient requesting food. Patient was encouraged follow-up primary care physician to get the patient medication for nausea and prescription for Vistaril for her itching rash. And for Accu-Chek test strips. Patient tolerated her juice here in ER without difficulty. - Vital Signs Vital signs: Temp Pulse Resp BP Pulse Ox 99.2 F 102 H 15 129/89 H 100 06/20/17 23:07 06/20/17 23:07 06/21/17 05:01 06/21/17 05:01 06/21/17 05:01 - Laboratory Result Diagrams: 06/21/17 01:20 06/21/17 01:20 Laboratory results interpreted by me: 06/21/17 06/21/17 06/21/17 00:05 00:38 01:20 Seg Neutrophils % 41.7 L Monocytes % 13.4 H Sodium Carbon Dioxide Glucose POC Glucose 405 H* Hemoglobin A1c % Direct Bilirubin AST Alkaline Phosphatase Albumin Urine Protein 100 H Urine Glucose (UA) >=500 H 06/21/17 06/21/17 01:20 01:20 Seg Neutrophils % Monocytes % Sodium 136.8 L Carbon Dioxide 32 H Glucose 433 H* POC Glucose Hemoglobin A1c % 10.4 H Direct Bilirubin 0.5 H AST 75 H Alkaline Phosphatase 344 H Albumin 3.0 L Urine Protein Urine Glucose (UA) Discharge - Discharge Clinical Impression: Hyperglycemia, Nausea, Pruritic rash Condition: Good Disposition: HOME, SELF-CARE Instructions: Hyperglycemia ([facility]), Itching, Nonspecific ([facility]), Nausea or Vomiting, Nonspecific ([facility]) Additional Instructions: Please make sure he follow-up with your primary care physician for further control of your diabetes. Please take the nausea medication as prescribed for any nausea. Please take the Vistaril as prescribed for itching. Return to the ER symptoms worsen. Prescriptions: Blood Sugar Diagnostic [Accu-Chek Guide Test Strip] 1 each MC BID #60 strip Hydroxyzine Pamoate [Vistaril 25 mg Capsule] 25 mg PO Q8 #30 capsule Metoclopramide HCl [Reglan] 5 mg PO Q6 #30 tablet Forms: Return to Work
[2017-06-21 01:37] LABS: EOSINOPHILS % (AUTO) 0.9 % (0-6); TOTAL CELLS COUNTED % (AUTO) 100 %
[2017-06-21 01:41] LABS: ABSOLUTE MONOCYTES (AUTO) 0.6 10^3/uL (0.1-1.4); ABSOLUTE NEUT (AUTO) 1.9 10^3/uL (1.7-8.2); HEMATOCRIT 39.3 % (36.0-47.0); HEMOGLOBIN 12.6 g/dL (12.0-15.5); MEAN CORPUSCULAR HEMOGLOBIN 28.6 pg (27.0-33.4); MEAN CORPUSCULAR VOLUME 89 fl (80-97); MONOCYTES % (AUTO) 13.4 % (3-13); PLATELET COUNT 205 10^3/uL (150-450); RED BLOOD COUNT 4.39 10^6/uL (3.72-5.28); RED CELL DISTRIBUTION WIDTH 13.4 % (11.5-14.0); SEGMENTED NEUTROPHILS % (AUTO) 41.7 % (42-78); WHITE BLOOD COUNT 4.6 10^3/uL (4.0-10.5)
[2017-06-21 01:52] LABS: ALANINE AMINOTRANSFERASE 48 U/L (9-52); ALKALINE PHOSPHATASE 344 U/L (38-126); ASPARTATE AMINO TRANSFERASE 75 U/L (14-36); BILIRUBIN,DIRECT 0.5 mg/dL (0.0-0.4); BILIRUBIN,TOTAL 0.5 mg/dL (0.2-1.3); BLOOD UREA NITROGEN 14 mg/dL (7-20); CALCIUM 9.6 mg/dL (8.4-10.2); CHLORIDE 100 mmol/L (98-107); LIPASE 181.1 U/L (23-300); POTASSIUM 4.3 mmol/L (3.6-5.0); TOTAL PROTEIN 7.2 g/dL (6.3-8.2)
[2017-06-21 02:06] LABS: ANION GAP 5 (5-19); CARBON DIOXIDE 32 mmol/L (22-30); SODIUM 136.8 mmol/L (137-145)
[2017-06-21 02:12] LABS: GLUCOSE 433 mg/dL (75-110)
[2017-06-21 05:09] VITALS: BP 129/89
== END 2017-06-21 05:22 | disposition home or self-care (01) ==
LOC: ER 22:13
DX: E11.65 Type 2 diabetes mellitus with hyperglycemia (principal); Z79.899 Other long term (current) drug therapy; R21 Rash and other nonspecific skin eruption; L29.8 Other pruritus; R11.0 Nausea; I10 Essential (primary) hypertension; J45.909 Unspecified asthma, uncomplicated
CPT/HCPCS: 99283; 96361; 96374; 36415; 82962; 83690; 85025; 80053; 81001; 83036; A9270; J2405; J7030; J1815

== ENCOUNTER 2017-06-24 14:01 | Emergency (ER) | payer MEDICARE, MEDICAID ==
[2017-06-24 14:33] VITALS: BP 137/74
--- NOTE | 2017-06-24 15:27 | ER Document Report ---
ED Medical Screen (RME) - General Chief Complaint: Nausea/Vomiting Stated Complaint: NAUSEA Time Seen by Provider: 06/24/17 15:14 Mode of Arrival: Medic Information source: Patient Notes: 67-year-old female presents to the emergency room with itchy rash. The patient was just seen by her photogrammetry airplane pilot and has had treatment initiated for scabies. Patient states she is having a lot of itching at night and it is difficult for her to sleep. Patient also states that she frequently has problems swallowing food. She states that it sometimes comes out. It is not all the time. She is able to tolerate fluids. Also of note, patient states that she did not take her insulin today. Her sugar was elevated at 337. She does tell me that she will absolutely take her insulin. TRAVEL OUTSIDE OF THE [place] IN LAST 30 DAYS: No - HPI Onset: Last week Onset/Duration: Gradual Quality of pain: No pain Severity: None Pain Level: Denies Associated Symptoms: denies: Chest pain, Shortness of breath Exacerbated by: Denies Relieved by: Denies Similar symptoms previously: Yes Recently seen / treated by doctor: Yes - Related Data Smoking: Non-smoker Frequency of alcohol use: None Drug Abuse: None Allergies/Adverse Reactions: No Known Allergies Allergy (Verified 04/30/17 18:26) Past Medical History - General Information source: Patient - Social History Cigarette use (# per day): No Chew tobacco use (# tins/day): No Frequency of alcohol use: None Drug Abuse: None Lives with: Family Family history: None - Past Medical History Cardiac Medical History: Reports: Hx Hypertension Pulmonary Medical History: Reports: Hx Asthma Endocrine Medical History: Reports: Hx Diabetes Mellitus Type 1 - on insulin, Hx Diabetes Mellitus Type 2 Renal/ Medical History: Denies: Hx Peritoneal Dialysis GI Medical History: Reports: Hx Gastroesophageal Reflux Disease, Hx Hepatitis Psychiatric Medical History: Reports: Hx Depression Infectious Medical History: Reports: Hx Hepatitis Past Surgical History: Reports: Hx Abdominal Surgery - Per patient. - Immunizations Hx Diphtheria, Pertussis, Tetanus Vaccination: No Review of Systems - Review of Systems Notes: Review of systems: Constitutional: Denies fever, chills. EENT: Denies ear pain, sinus tenderness, throat pain, throat swelling. Cardiovascular: Denies chest pain, palpitations, dyspnea or edema. Respiratory: Denies wheezing, cough, hemoptysis. Abdomen: See H&P Genitourinary: Denies dysuria, pyuria, hematuria, flank pain. Musculoskeletal: denies joint pain or swelling, denies back pain. Neurologic: Denies headache, photophobia, neck stiffness, weakness. Denies loss of bowel or bladder function. Denies saddle anesthesia. Skin: See H&P Physical Exam - Vital signs Vitals: Temp Pulse Resp BP Pulse Ox 97.6 F 77 20 137/74 H 100 06/24/17 14:32 06/24/17 14:32 06/24/17 14:32 06/24/17 14:32 06/24/17 14:32 Notes: Physical exam: GENERAL: HEAD: Atraumatic, normocephalic. EYES: Pupils equal round and reactive to light, extraocular movements intact, sclera anicteric, conjunctiva are normal. ENT: TMs normal, nares patent, oropharynx clear without exudates. Moist mucous membranes. NECK: Normal range of motion, supple without obvious mass or JVD. LUNGS: Breath sounds clear to auscultation bilaterally and equal. No wheezes rales or rhonchi. HEART: Regular rate and rhythm without murmurs, rubs or gallops. ABDOMEN: Soft, normoactive bowel sounds. No tenderness to palpation. No guarding, no rebound. No masses appreciated. EXTREMITIES: Normal range of motion, no pitting or edema. No clubbing or cyanosis. NEUROLOGICAL: Cranial nerves II through XII grossly intact. Normal speech, moving all extremities. PSYCH: Normal mood, normal affect. SKIN: Multiple nodular lesions on back and lower extremities Course - Vital Signs Vital signs: Temp Pulse Resp BP Pulse Ox 97.6 F 77 20 137/74 H 100 06/24/17 14:32 06/24/17 14:32 06/24/17 14:32 06/24/17 14:32 06/24/17 14:32 Doctor's Discharge - Discharge Clinical Impression: Pruritus, Diabetes Condition: Stable Disposition: HOME, SELF-CARE Additional Instructions: Take the medicine for itch. It will also help to sleep at night. Continue taking your insulin and other medicines. I do want you to follow-up with your primary care doctor: Dr. Jernigan. Call the office today for the next available appointment. I also want you to continue following up with your photogrammetry airplane pilot for the skin condition. As far as the GI issue: I would like you to continue with the medicines for reflux. I want you to follow-up with the GI doctor for possible scope. I left the #1 on the chart. Prescriptions: Hydroxyzine HCl 25 mg PO Q6HP PRN #20 tablet PRN Reason: Referrals: KASHIF AMBROSE MD [ACTIVE STAFF] - Follow up as needed (This is the number for the GI doctor)
== END 2017-06-24 15:47 | disposition home or self-care (01) ==
LOC: ER 14:01
DX: B86 Scabies (principal); R13.10 Dysphagia, unspecified; E11.9 Type 2 diabetes mellitus without complications; Z79.4 Long term (current) use of insulin; I10 Essential (primary) hypertension; J45.909 Unspecified asthma, uncomplicated
CPT/HCPCS: 99283

== ENCOUNTER → 2017-09-16 | Outpatient (CLI) | payer MEDICARE, MEDICAID ==
[2017-09-16 17:16] LABS: ABSOLUTE LYMPHOCYTES (AUTO) 2.7 10^3/uL (0.5-4.7); ABSOLUTE MONOCYTES (AUTO) 0.6 10^3/uL (0.1-1.4); ABSOLUTE NEUT (AUTO) 2.2 10^3/uL (1.7-8.2); BASOPHILS % (AUTO) 0.9 % (0-2); EOSINOPHILS % (AUTO) 0.3 % (0-6); HEMATOCRIT 40.7 % (36.0-47.0); HEMOGLOBIN 13.1 g/dL (12.0-15.5); LYMPHOCYTES % (AUTO) 48.4 % (13-45); MEAN CORPUSCULAR HEMOGLOBIN 28.5 pg (27.0-33.4); MEAN CORPUSCULAR HGB CONC 32.2 g/dL (32.0-36.0); MEAN CORPUSCULAR VOLUME 88 fl (80-97); MONOCYTES % (AUTO) 10.2 % (3-13); PLATELET COUNT 192 10^3/uL (150-450); RED BLOOD COUNT 4.61 10^6/uL (3.72-5.28); RED CELL DISTRIBUTION WIDTH 13.5 % (11.5-14.0); SEGMENTED NEUTROPHILS % (AUTO) 40.2 % (42-78); TOTAL CELLS COUNTED % (AUTO) 100 %; WHITE BLOOD COUNT 5.5 10^3/uL (4.0-10.5)
[2017-09-16 17:35] LABS: ALANINE AMINOTRANSFERASE 65 U/L (9-52); ALBUMIN 3.4 g/dL (3.5-5.0); ALKALINE PHOSPHATASE 331 U/L (38-126); ANION GAP 8 (5-19); ASPARTATE AMINO TRANSFERASE 72 U/L (14-36); BILIRUBIN,DIRECT 0.4 mg/dL (0.0-0.4); BILIRUBIN,TOTAL 0.4 mg/dL (0.2-1.3); BLOOD UREA NITROGEN 18 mg/dL (7-20); CALCIUM 10.2 mg/dL (8.4-10.2); CARBON DIOXIDE 33 mmol/L (22-30); CHLORIDE 96 mmol/L (98-107); GLUCOSE 332 mg/dL (75-110); POTASSIUM 4.2 mmol/L (3.6-5.0); SODIUM 137.1 mmol/L (137-145); TRIGLYCERIDES 258 mg/dL (<150)
[2017-09-16 17:45] LABS: DIRECT LDL 53 mg/dL (<100)
[2017-09-16 17:48] LABS: VLDL CHOLESTEROL 51.6 mg/dL (10-31)
[2017-09-18 12:37] LABS: CREATININE URINE 80.1 mg/dL (Not Estab.)
== END ==
LOC: OD 16:13
PROVIDERS: ATTEND Internal Medicine
DX: E78.2 Mixed hyperlipidemia (principal); E11.9 Type 2 diabetes mellitus without complications; E55.9 Vitamin D deficiency, unspecified; Z13.29 Encounter for screening for other suspected endocrine disorder
CPT/HCPCS: 36415; 80053; 80061; 82043; 82306; 82570; 83036; 84443; 85025

== ENCOUNTER 2017-09-18 18:10 | Emergency (ER) | payer MEDICARE, MEDICAID ==
[2017-09-18 20:03] VITALS: BP 178/88
--- NOTE | 2017-09-18 20:03 | ER Document Report ---
HPI - HPI Patient complains to provider of: Chronic abdominal pain generalized itching due to scabies and constipation Onset: Other - All chronic problems no acute changes Onset/Duration: Persistent Quality of pain: Other - Chronic abdominal pain chronic back pain chronic leg pain chronic itching Pain Level: 4 Associated Symptoms: Other - Patient has multiple chronic conditions. There is no new changes to any of her chronic conditions she is alert oriented speaks in full sentences able to walk with a even steady gait Exacerbated by: Denies Relieved by: Denies Similar symptoms previously: Yes Recently seen / treated by doctor: Yes - ROS ROS below otherwise negative: Yes - CONSTITUTIONAL Constitutional: DENIES: Fever, Chills - EENT EENT: DENIES: Sore Throat, Ear Pain, Nasal Drainage-Clear, Nasal Drainage- Purulent, Congestion, Eye problems - NEURO Neurology: DENIES: Headache, Weakness, Vision blurred, Dizzinesss / Vertigo - CARDIOVASCULAR Cardiovascular: DENIES: Chest pain - RESPIRATORY Respiratory: DENIES: Trouble Breathing, Coughing - GASTROINTESTINAL Gastrointestinal: REPORTS: Abdominal Pain - Chronic, Constipation - Chronic - URINARY Urinary: DENIES: Dysuria, Urgency, Frequency - REPRODUCTIVE Reproductive: DENIES: : - MUSCULOSKELETAL Musculoskeletal: REPORTS: Extremity pain, Back Pain - Chronic no changes - DERM Skin Color: Normal Skin Problems: Rash - Chronic no changes Past Medical History - General Information source: Patient - Social History Smoking Status: Never Smoker Cigarette use (# per day): No Chew tobacco use (# tins/day): No Smoking Education Provided: No Family History: Reviewed & Not Pertinent - Past Medical History Cardiac Medical History: Reports: Hx Hypertension Pulmonary Medical History: Reports: Hx Asthma Endocrine Medical History: Reports: Hx Diabetes Mellitus Type 1 - on insulin, Hx Diabetes Mellitus Type 2 Renal/ Medical History: Denies: Hx Peritoneal Dialysis GI Medical History: Reports: Hx Gastroesophageal Reflux Disease, Hx Hepatitis Psychiatric Medical History: Reports: Hx Depression Infectious Medical History: Reports: Hx Hepatitis Past Surgical History: Reports: Hx Abdominal Surgery - Per patient. - Immunizations Hx Diphtheria, Pertussis, Tetanus Vaccination: No Vertical Provider Document - CONSTITUTIONAL Agree With Documented VS: Yes Exam Limitations: negative: No Limitations, Clinical Condition, Intoxication, Language Barrier, Physical Impairment, Other General Appearance: WD/WN, No Apparent Distress - INFECTION CONTROL TRAVEL OUTSIDE OF THE [place] IN LAST 30 DAYS: No - HEENT HEENT: Atraumatic, Normal ENT Exam, Normocephalic - NECK Neck: Normal Inspection - RESPIRATORY Respiratory: Breath Sounds Normal, No Respiratory Distress, Chest Non-Tender - CARDIOVASCULAR Cardiovascular: Regular Rate, Regular Rhythm - GI/ABDOMEN Gastrointestinal: Abdomen Soft, Abdomen Non-Tender, No Organomegaly, Normal Bowel Sounds - MUSCULOSKELETAL/EXTREMETIES Musculoskeletal/Extremeties: MAEW, FROM, Non-Tender - NEURO Level of Consciousness: Awake, Alert, Appropriate - DERM Integumentary: Rash - Chronic Course - Re-evaluation Re-evalutation: 09/18/17 20:13 There are no acute changes to any of her chronic histories. She is taking fluids well. She is walking free steadily with no difficulty. She states that she has chronic constipation but she had a bowel movement yesterday. She states she has chronic GERD but is not vomiting today. She states she is released recently seen her division manager her and Dr. De La Fuente. She states she has a service writer for her abdominal problems. She has no acute changes at this time and her assessment is benign I will discharge her home with instructions to follow-up with her primary doctor her service writer and her division manager. Her blood pressure was 178/88 pulse ox was 98% temperature was 98.7 and pulse was 81 at time of exam. 09/18/17 20:15 Dr. De La Fuente was consulted and he agreed the patient is stable to go home. - Vital Signs Vital signs: Temp Pulse Resp BP Pulse Ox 98.8 F 94 20 154/107 H 100 09/18/17 18:41 09/18/17 18:41 09/18/17 18:41 09/18/17 18:41 09/18/17 18:41 Discharge - Discharge Clinical Impression: Chronic generalized abdominal pain, Chronic itching generalized, Chronic constipation Hypertension Qualifiers: Hypertension type: unspecified Qualified Code(s): I10 - Essential (primary) hypertension Condition: Stable Disposition: HOME, SELF-CARE Additional Instructions: You were seen today for your chronic abdominal pain with no acute changes. You state you on reflux medicine and are being treated by Dr. Gauthier for your GERD and hiatal hernia with chronic constipation. You state you are being treated by Dr. De La Fuente for your chronic asthma and high blood pressure. You state you are being seen by a division manager for your chronic rash and itching. You state you have medicine home for your asthma diabetes blood pressure and reflux. Please take your medications as prescribed. You state that the ensure you drink helps you to have a bowel movement. If you need to drink another ensure before going to bed drink another ensure. You state you had a bowel movement yesterday so it is okay if you do not have a bowel movement today. FOLLOW-UP CARE: If you have been referred to a physician for follow-up care, call the physician s office for an appointment as you were instructed or within the next two days. If you experience worsening or a significant change in your symptoms, notify the physician immediately or return to the Emergency Department at any time for re-evaluation. Forms: Elevated Blood Pressure Referrals: MIKHAIL LINDQUIST NP [Primary Care Provider] - Follow up as needed NAE DE LA FUENTE MD [ACTIVE STAFF] - Follow up as needed
== END 2017-09-18 20:08 | disposition home or self-care (01) ==
LOC: ER 18:10
DX: G89.29 Other chronic pain (principal); R10.84 Generalized abdominal pain; K59.00 Constipation, unspecified; K21.9 Gastro-esophageal reflux disease without esophagitis; B86 Scabies; I10 Essential (primary) hypertension; J45.909 Unspecified asthma, uncomplicated; E11.9 Type 2 diabetes mellitus without complications
CPT/HCPCS: 99282

== ENCOUNTER → 2017-09-22 | Outpatient (CLI) | payer MEDICARE, MEDICAID | LOC: OD 16:47 | PROVIDERS: ATTEND Internal Medicine | DX: E11.9 Type 2 diabetes mellitus without complications (principal) | CPT/HCPCS: 36415; 83036 ==

== ENCOUNTER 2017-10-03 16:51 | Emergency (ER) | payer MEDICARE, MEDICAID ==
--- NOTE | 2017-10-03 17:35 | ER Document Report ---
ED Medical Screen (RME) - General Chief Complaint: Nausea/Vomiting Stated Complaint: BLOOD SUGAR ISSUE Time Seen by Provider: 10/03/17 17:28 Notes: RAPID MEDICAL EVALUATION DISCLOSURE I have seen this patient as part of a Rapid Medical Evaluation and, if applicable, placed any initially appropriate orders. The patient will be seen and fully evaluated, including a full history and physical exam, by a provider ( in Main ED or Fast Track) when a room becomes available. 67-year-old female PMH diabetes here with complaints of nausea vomiting ongoing since this morning. She is also had some generalized weakness. She also complains of a hernia near her bellybutton that she has had for quite some time. She states that it hurts "just a little bit" right now. She has missed several doses of her insulin in the last few days. She does not have any glucose monitor strips at home so she does not know what her sugars have been recently. EXAM Minimal periumbilical TTP TRAVEL OUTSIDE OF THE [place] IN LAST 30 DAYS: No - Related Data Allergies/Adverse Reactions: No Known Allergies Allergy (Verified 09/18/17 18:22) Past Medical History - Social History Chew tobacco use (# tins/day): No Frequency of alcohol use: None Drug Abuse: None Family history: None - Past Medical History Cardiac Medical History: Reports: Hx Hypercholesterolemia, Hx Hypertension Pulmonary Medical History: Reports: Hx Asthma Endocrine Medical History: Reports: Hx Diabetes Mellitus Type 1 - on insulin, Hx Diabetes Mellitus Type 2 Renal/ Medical History: Denies: Hx Peritoneal Dialysis GI Medical History: Reports: Hx Gastroesophageal Reflux Disease, Hx Hepatitis Psychiatric Medical History: Reports: Hx Depression Infectious Medical History: Reports: Hx Hepatitis Past Surgical History: Reports: Hx Abdominal Surgery - Per patient. - Immunizations Hx Diphtheria, Pertussis, Tetanus Vaccination: No Physical Exam - Vital signs Vitals: Pulse Resp BP Pulse Ox 74 24 H 156/99 H 99 10/03/17 17:00 10/03/17 17:00 10/03/17 17:00 10/03/17 17:00 Course - Vital Signs Vital signs: Temp Pulse Resp BP Pulse Ox 74 24 H 156/99 H 99 10/03/17 17:00 10/03/17 17:00 10/03/17 17:00 10/03/17 17:00
[2017-10-03] MEDS ORDERED: NORMAL SALINE 1000 ML 1,000 ML IV ONE (19:48)
[2017-10-03] MEDS ORDERED: METOCLOPRAMIDE HCL INJ/PF 10 MG/2 ML SDV IV ONE (19:49)
--- NOTE | 2017-10-03 19:52 | RADIOLOGY REPORT (SQ) ---
EXAM DESCRIPTION: ACUTE ABDOMEN SERIES COMPLETED DATE/TIME: 10/03/2017 7:35 pm REASON FOR STUDY: abd pain n/v COMPARISON: None. NUMBER OF VIEWS: Three views. TECHNIQUE: Frontal chest, supine abdomen and upright/decubitus abdomen radiographic images acquired. LIMITATIONS: None. FINDINGS: CHEST: Lungs clear of infiltrates. FREE AIR: None. No abnormal gas collections. BOWEL GAS PATTERN: Nonobstructive pattern. No dilated loops or air fluid levels. Large amount of sto ol in the distal colon and rectosigmoid. CALCIFICATIONS: No suspicious calcifications. HARDWARE: None in the abdomen. SOFT TISSUES: No gross mass or suggestion of organomegaly. BONES: No acute fracture. No worrisome bone lesions. OTHER: No other significant finding. IMPRESSION: NO RADIOGRAPHIC EVIDENCE FOR ACUTE ABDOMINAL DISEASE. LARGE AMOUNT OF STOOL IN THE DIST AL COLON AND RECTOSIGMOID. POSSIBLE CONSTIPATION OR FECAL IMPACTION. TECHNICAL DOCUMENTATION: JOB ID: [id number] [employer]- All Rights Reserved Reading location - IP/workstation name: [email or web address]
--- NOTE | 2017-10-03 19:59 | ER Document Report ---
ED General - General Chief Complaint: Nausea/Vomiting Stated Complaint: BLOOD SUGAR ISSUE Time Seen by Provider: 10/03/17 17:28 Mode of Arrival: Ambulatory Information source: Patient Notes: 59-year-old female patient presents with chief complaint of vomiting. Patient reports that she has a abdominal umbilical hernia for the last 4-5 months and she feels that this might be pressing on her abdomen causing her to vomit. Patient is also an insulin-dependent diabetic. Patient reports that she has run out of test strips so she has been unable to check her sugars and for the last few days however prior to that they have been the 90 to low 100 range. Patient denies any chest pain, fever, urinary symptoms or diarrhea. Patient does report that she has had hard stools lately. Past medical history includes hypertension, insulin-dependent diabetes, hep C and anemia. TRAVEL OUTSIDE OF THE [place] IN LAST 30 DAYS: No - Related Data Allergies/Adverse Reactions: No Known Allergies Allergy (Verified 09/18/17 18:22) Past Medical History - General Information source: Patient - Social History Smoking Status: Never Smoker Cigarette use (# per day): No Chew tobacco use (# tins/day): No Frequency of alcohol use: None Drug Abuse: None Lives with: Family Family History: Reviewed & Not Pertinent Patient has suicidal ideation: No Patient has homicidal ideation: No - Past Medical History Cardiac Medical History: Reports: Hx Hypercholesterolemia, Hx Hypertension Pulmonary Medical History: Reports: Hx Asthma Endocrine Medical History: Reports: Hx Diabetes Mellitus Type 2 Renal/ Medical History: Denies: Hx Peritoneal Dialysis GI Medical History: Reports: Hx Gastroesophageal Reflux Disease, Hx Hepatitis Psychiatric Medical History: Reports: Hx Depression Infectious Medical History: Reports: Hx Hepatitis Past Surgical History: Reports: Hx Abdominal Surgery - Per patient. - Immunizations Hx Diphtheria, Pertussis, Tetanus Vaccination: No Review of Systems - Review of Systems Constitutional: See HPI EENT: No symptoms reported Cardiovascular: No symptoms reported Respiratory: No symptoms reported Gastrointestinal: See HPI Genitourinary: No symptoms reported Female Genitourinary: No symptoms reported Musculoskeletal: No symptoms reported Skin: No symptoms reported Hematologic/Lymphatic: No symptoms reported Neurological/Psychological: No symptoms reported Physical Exam - Vital signs Vitals: Pulse Resp BP Pulse Ox 74 24 H 156/99 H 99 10/03/17 17:00 10/03/17 17:00 10/03/17 17:00 10/03/17 17:00 - Notes Notes: PHYSICAL EXAMINATION: GENERAL: Well-appearing, well-nourished and in no acute distress. HEAD: Atraumatic, normocephalic. EYES: Pupils equal round and reactive to light, extraocular movements intact, conjunctiva are normal. ENT: Nares patent, oropharynx clear without exudates. Moist mucous membranes. NECK: Normal range of motion, supple without lymphadenopathy LUNGS: Breath sounds clear to auscultation bilaterally and equal. No wheezes rales or rhonchi. HEART: Regular rate and rhythm without murmurs ABDOMEN: Soft, generalized mild tenderness, nondistended abdomen. + guarding, no rebound. No masses appreciated. Female : deferred Musculoskeletal: Normal range of motion, no pitting or edema. No cyanosis. NEUROLOGICAL: Cranial nerves grossly intact. Normal speech, normal gait. Normal sensory, motor exams PSYCH: Normal mood, normal affect. SKIN: Warm, Dry, normal turgor, no rashes or lesions noted. Course - Re-evaluation Re-evalutation: 59-year-old female with history of insulin-dependent diabetes presents with complaint of nausea and vomiting. Patient also reports vague generalized abdominal pain. Patient states that this is been going on for about 24 hours. Patient denies any fever or dysuria. Patient reports that she has been taking her insulin as prescribed however she has not checked her glucose today as she ran out of test strips. Initial Accu-Chek reveals glucose of 58, patient was given an amp of D50. CBC is unremarkable, ABG with normal pH and no signs of acidosis. Comprehensive metabolic panel with mild hypokalemia at 3.5 otherwise unremarkable. KUB showed constipation with large stool at the distal colon. Given patient's tenderness as well as complaint of vomiting and past abdominal surgical history will order CT abdomen pelvis to rule out obstruction. Significant delay in obtaining CT abdomen pelvis with IV and oral contrast as patient was initially refusing to drink the oral contrast and she stated that it hurt her throat. Patient's throat was reassessed and there was no redness or any other finding. After much convincing patient was able to drink approximately 1 bottle of the oral contrast and patient was sent for CT scan. CT of the abdomen pelvis showed cholelithiasis however patient has no complaint of right upper quadrant pain. CT abdomen pelvis was otherwise unremarkable. Patient given soapsuds enema with mineral oil with large bowel movement. Patient will be sent home with dispense pack of Zofran as well as bottle of mag citrate with directions to drink half of a bottle to help clear the rest of her constipation. Throughout patient's ER stay patient has remained normotensive and has not been tachycardic or febrile. Patient is stable upon discharge. - Vital Signs Vital signs: Temp Pulse Resp BP Pulse Ox 97 F L 87 16 124/88 H 98 10/04/17 02:05 10/04/17 02:05 10/04/17 02:05 10/04/17 02:05 10/04/17 02:05 - Laboratory Result Diagrams: 10/03/17 19:58 10/03/17 19:58 Laboratory results interpreted by me: 10/03/17 10/03/17 10/03/17 18:10 19:53 19:58 Hgb 11.5 L Hct 34.9 L Potassium Carbon Dioxide Creatinine Glucose POC Glucose 58 L AST Alkaline Phosphatase Albumin Urine Protein >=500 H Urine Glucose (UA) >=500 H Urine Urobilinogen 4.0 H 10/03/17 19:58 Hgb Hct Potassium 3.5 L Carbon Dioxide 33 H Creatinine 0.38 L Glucose 73 L POC Glucose AST 76 H Alkaline Phosphatase 191 H Albumin 3.0 L Urine Protein Urine Glucose (UA) Urine Urobilinogen Discharge - Discharge Clinical Impression: Constipation Qualifiers: Constipation type: unspecified constipation type Qualified Code(s): K59.00 - Constipation, unspecified Vomiting Qualifiers: Vomiting type: unspecified Vomiting Intractability: non-intractable Nausea presence: unspecified Qualified Code(s): R11.10 - Vomiting, unspecified Condition: Stable Disposition: HOME, SELF-CARE Additional Instructions: Constipation Constipation is a common problem. It is especially likely as you get older. Constipation is a common cause of abdominal pain, but sometimes causes no symptoms at all. Causes of constipation include certain medications, dehydration, diets, inactivity, and low-fiber intake. Rarely, it can be a symptom of underlying disease. The physician has evaluated you for this. Avoid constipation by eating a diet high in fiber, fruits, and vegetables. Drink plenty of liquids. Get regular exercise. If possible, avoid constipating medicines like narcotic pain medication. Some vitamin tablets can cause constipation. Stool softeners may be needed for difficult cases. An excellent stool softener is Konsyl which is available at [employer], and [employer]. Just add a teaspoon to a glass of pineapple or orange juice daily or twice a day if needed. Laxatives are useful for occasional constipation. You should use them only when necessary. Too-frequent use can make your bowels dependent on them. Some over the counter laxatives available without prescription are: Milk of Magnesia, 1-2 tablespoons twice a day Dulcolax, 5 mg pill or 10 mg suppository. Citrate of Magnesia, 4-5 ounces a day for a day or two For acute constipation, Fleet's Enemas and Dulcolax suppositories are helpful. Chronic, termite treater use of laxatives or enemas is not a good idea. Your bowel may become dependant on them. You do not need to have a bowel movement every day. Many people do fine with a bowel movement every three or four days. You should call your doctor or return for re-evaluation if you pass blood in the stool, or if you develop fever or increasing abdominal pain. Please drink 1/2 of the bottle of magnesium citrate when you get home. Please follow up with your primary care physician for a re-evaluation in the next 2-3 days. Check your sugars at home as directed by your primary doctor. Return to the emergency department if you develop worsening abdominal pain, you continue to vomit or you develop a fever. Referrals: NAE DE LA FUENTE MD [Primary Care Provider] - Follow up as needed
[2017-10-03 20:02] LABS: APPEARANCE,URINE CLEAR; BILIRUBIN,URINE NEGATIVE (NEGATIVE); COLOR,URINE YELLOW; GLUCOSE, URINE >=500 mg/dL (NEGATIVE); KETONES,URINE NEGATIVE (NEGATIVE); LEUKOCYTE ESTERASE,URINE NEGATIVE (NEGATIVE); NITRITE,URINE NEGATIVE (NEGATIVE); PROTEIN,URINE >=500 mg/dL (NEGATIVE); URINE SPECIFIC GRAVITY 1.014
[2017-10-03 20:13] LABS: ABSOLUTE LYMPHOCYTES (AUTO) 1.3 10^3/uL (0.5-4.7); ABSOLUTE MONOCYTES (AUTO) 0.5 10^3/uL (0.1-1.4); ABSOLUTE NEUT (AUTO) 4.1 10^3/uL (1.7-8.2); BASOPHILS % (AUTO) 0.5 % (0-2); HEMATOCRIT 34.9 % (36.0-47.0); HEMOGLOBIN 11.5 g/dL (12.0-15.5); LYMPHOCYTES % (AUTO) 21.8 % (13-45); MEAN CORPUSCULAR HEMOGLOBIN 29.2 pg (27.0-33.4); MEAN CORPUSCULAR VOLUME 89 fl (80-97); MONOCYTES % (AUTO) 8.5 % (3-13); PLATELET COUNT 266 10^3/uL (150-450); RED BLOOD COUNT 3.94 10^6/uL (3.72-5.28); RED CELL DISTRIBUTION WIDTH 13.3 % (11.5-14.0); SEGMENTED NEUTROPHILS % (AUTO) 69.2 % (42-78); TOTAL CELLS COUNTED % (AUTO) 100 %; WHITE BLOOD COUNT 5.9 10^3/uL (4.0-10.5)
[2017-10-03 20:14] LABS: VENOUS BLOOD BASE EXCESS 4.7 mmol/L; VENOUS BLOOD HCO3 31.1 mmol/L (20-32); VENOUS BLOOD PCO2 53.8 mmHg (35-63); VENOUS BLOOD PH 7.38 (7.30-7.42)
[2017-10-03] MEDS ORDERED: DEXTROSE 50%-WATER 25 GM/50 ML DISP.SYRIN IV ONE (20:31)
[2017-10-03 20:33] LABS: ALANINE AMINOTRANSFERASE 51 U/L (9-52); ALKALINE PHOSPHATASE 191 U/L (38-126); ANION GAP 7 (5-19); ASPARTATE AMINO TRANSFERASE 76 U/L (14-36); BILIRUBIN,DIRECT 0.4 mg/dL (0.0-0.4); BILIRUBIN,TOTAL 0.4 mg/dL (0.2-1.3); BLOOD UREA NITROGEN 15 mg/dL (7-20); CALCIUM 9.2 mg/dL (8.4-10.2); CARBON DIOXIDE 33 mmol/L (22-30); CHLORIDE 101 mmol/L (98-107); GLUCOSE 73 mg/dL (75-110); LIPASE 50.9 U/L (23-300); POTASSIUM 3.5 mmol/L (3.6-5.0); TOTAL PROTEIN 7.3 g/dL (6.3-8.2)
--- NOTE | 2017-10-04 00:28 | RADIOLOGY REPORT (SQ) ---
EXAM DESCRIPTION: CT ABDOMEN PELVIS WITH IV CONTRAST CLINICAL HISTORY: 67 years Female, vomiting, eval for obstruction Comparison: None. Technique: No contrast. Coronal and sagittal reformat. This exam was performed according to our departmental dose-optimization program, which includes automated exposure control, adjustment of the mA and/or kV according to patient size and/or use of iterative reconstruction technique. LIMITATIONS: None. Findings: Gallstone. Small right inguinal fat only hernia. Coronary arterial calcification stent. Possible uterine pelvic floor prolapse. No free fluid. No evidence of bowel obstruction, as queried. Inferior thorax, liver, pancreas, spleen, adrenals, renal system, gastrointestinal tract, pelvic organs, lymphatics, vasculature, and musculoskeleton appear otherwise unremarkable. IMPRESSION: No acute findings. Cholelithiasis.
[2017-10-04] MEDS ORDERED: MINERAL OIL 30 ML UDCUP PR ONE (00:58)
[2017-10-04] MEDS ORDERED: ONDANSETRON ODT 4 MG TAB (6 TAB/ER DISP) PO PRN (01:37)
[2017-10-04] MEDS ORDERED: MAGNESIUM CITRATE 296 ML BOTTLE PO ONE (01:38)
[2017-10-04 02:06] VITALS: BP 124/88
== END 2017-10-04 02:06 | disposition home or self-care (01) ==
LOC: ER 16:51
DX: K59.00 Constipation, unspecified (principal); K42.9 Umbilical hernia without obstruction or gangrene; R10.84 Generalized abdominal pain; R11.10 Vomiting, unspecified; E11.9 Type 2 diabetes mellitus without complications; E78.00 Pure hypercholesterolemia, unspecified; I10 Essential (primary) hypertension; Z79.4 Long term (current) use of insulin
CPT/HCPCS: 99285; 36415; 82962; 83690; 85025; 80053; 81001; 82803; 74022; 74177; J3490 ×3; J2765; J7030; A9270

== ENCOUNTER 2017-10-14 21:32 | Emergency (ER) | payer MEDICARE, MEDICAID | END 2017-10-14 22:00 | disposition left against medical advice (07) | LOC: ER 21:32 | DX: Z53.21 Procedure and treatment not carried out due to patient leaving prior to being seen by health care provider (principal); J02.9 Acute pharyngitis, unspecified ==

== ENCOUNTER 2017-11-02 18:21 | Emergency (ER) | payer MEDICARE, MEDICAID ==
--- NOTE | 2017-11-02 19:35 | ER Document Report ---
ED Medical Screen (RME) - General Chief Complaint: Difficulty Swallowing Stated Complaint: BLOOD PRESSURE ISSUES Time Seen by Provider: 11/02/17 19:26 Notes: RAPID MEDICAL EVALUATION DISCLOSURE I have seen this patient as part of a Rapid Medical Evaluation and, if applicable, placed any initially appropriate orders. The patient will be seen and fully evaluated, including a full history and physical exam, by a provider ( in Main ED or Fast Track) when a room becomes available. 67-year-old female here with multiple vague complaints. She complains of some abdominal pain constipation "cannot swallow" diarrhea. After numerous questions , she will not clarify how long it has been going on. She is however able to tell me that her abdominal pain will sometimes improve after she has a bowel movement. She is a poor historian and for this reason it is difficult to ascertain any more reliable information. EXAM Minimal to mild diffuse TTP without peritoneal signs TRAVEL OUTSIDE OF THE [place] IN LAST 30 DAYS: No - Related Data Allergies/Adverse Reactions: No Known Allergies Allergy (Verified 11/02/17 18:25) Past Medical History - Social History Family history: None - Past Medical History Cardiac Medical History: Reports: Hx Hypercholesterolemia, Hx Hypertension Pulmonary Medical History: Reports: Hx Asthma Endocrine Medical History: Reports: Hx Diabetes Mellitus Type 1 - on insulin, Hx Diabetes Mellitus Type 2 Renal/ Medical History: Denies: Hx Peritoneal Dialysis GI Medical History: Reports: Hx Gastroesophageal Reflux Disease, Hx Hepatitis Psychiatric Medical History: Reports: Hx Depression Infectious Medical History: Reports: Hx Hepatitis Past Surgical History: Reports: Hx Abdominal Surgery - Per patient. - Immunizations Hx Diphtheria, Pertussis, Tetanus Vaccination: No Physical Exam - Vital signs Vitals: Temp Pulse Resp BP Pulse Ox 98.4 F 82 16 148/82 H 100 11/02/17 18:26 11/02/17 18:26 11/02/17 18:26 11/02/17 18:26 11/02/17 18:26 Course - Vital Signs Vital signs: Temp Pulse Resp BP Pulse Ox 98.4 F 82 16 148/82 H 100 11/02/17 18:26 11/02/17 18:26 11/02/17 18:26 11/02/17 18:26 11/02/17 18:26 Doctor's Discharge - Discharge Referrals: NAE DE LA FUENTE MD [Primary Care Provider] - Follow up as needed
[2017-11-02 20:20] LABS: ABSOLUTE LYMPHOCYTES (AUTO) 2.3 10^3/uL (0.5-4.7); ABSOLUTE MONOCYTES (AUTO) 0.5 10^3/uL (0.1-1.4); ABSOLUTE NEUT (AUTO) 2.5 10^3/uL (1.7-8.2); BASOPHILS % (AUTO) 0.6 % (0-2); EOSINOPHILS % (AUTO) 0.4 % (0-6); HEMATOCRIT 42.3 % (36.0-47.0); HEMOGLOBIN 13.8 g/dL (12.0-15.5); LYMPHOCYTES % (AUTO) 42.9 % (13-45); MEAN CORPUSCULAR HEMOGLOBIN 29.7 pg (27.0-33.4); MEAN CORPUSCULAR HGB CONC 32.5 g/dL (32.0-36.0); MEAN CORPUSCULAR VOLUME 91 fl (80-97); MONOCYTES % (AUTO) 9.5 % (3-13); PLATELET COUNT 201 10^3/uL (150-450); RED BLOOD COUNT 4.64 10^6/uL (3.72-5.28); RED CELL DISTRIBUTION WIDTH 13.8 % (11.5-14.0); SEGMENTED NEUTROPHILS % (AUTO) 46.6 % (42-78); TOTAL CELLS COUNTED % (AUTO) 100 %; WHITE BLOOD COUNT 5.3 10^3/uL (4.0-10.5)
--- NOTE | 2017-11-02 20:25 | ER Document Report ---
ED General - General Mode of Arrival: Ambulatory Information source: Patient TRAVEL OUTSIDE OF THE [place] IN LAST 30 DAYS: No <ANDRÉS NAIR - Last Filed: 11/02/17 20:28> <ELVIN NORMAN - Last Filed: 11/02/17 23:42> - General Chief Complaint: Difficulty Swallowing Stated Complaint: BLOOD PRESSURE ISSUES Time Seen by Provider: 11/02/17 19:26 Notes: 67 y.o. female with HLD, HTN, type 2 DM, GERD, depression, hiatal hernia and Hepatits presents to the ED with constipation, diarrhea,abd pain and difficulty swallowing. Pt reports that the difficulty swallowing began two days ago and states that her food and drink comes up in her throat and that it is continuing today. Pt reports that she has a lot of trouble with constipation but denies taking anything at home to help her with her constipation. Pt is a vague historian. Pt reports a PSHx of cholscystectomy and hemorrhoid repair (ANDRÉS NAIR) - Related Data Allergies/Adverse Reactions: No Known Allergies Allergy (Verified 11/02/17 18:25) Past Medical History - General Information source: Patient - Social History Smoking Status: Never Smoker Family History: Reviewed & Not Pertinent Patient has suicidal ideation: No Patient has homicidal ideation: No - Past Medical History Cardiac Medical History: Reports: Hx Hypercholesterolemia, Hx Hypertension Pulmonary Medical History: Reports: Hx Asthma Endocrine Medical History: Reports: Hx Diabetes Mellitus Type 1 - on insulin, Hx Diabetes Mellitus Type 2 Renal/ Medical History: Denies: Hx Peritoneal Dialysis GI Medical History: Reports: Hx Gastroesophageal Reflux Disease, Hx Hepatitis Psychiatric Medical History: Reports: Hx Depression Infectious Medical History: Reports: Hx Hepatitis Past Surgical History: Reports: Hx Abdominal Surgery - Per patient. - Immunizations Hx Diphtheria, Pertussis, Tetanus Vaccination: No <ANDRÉS NAIR - Last Filed: 11/02/17 20:28> Review of Systems - Review of Systems EENT: Difficulty swallowing Gastrointestinal: See HPI, Abdominal pain, Diarrhea, Constipation <ANDRÉS NAIR - Last Filed: 11/02/17 20:28> Physical Exam <ANDRÉS NAIR - Last Filed: 11/02/17 20:28> <ELVIN NORMAN - Last Filed: 11/02/17 23:42> - Vital signs Vitals: Temp Pulse Resp BP Pulse Ox 98.4 F 82 16 148/82 H 100 11/02/17 18:26 11/02/17 18:26 11/02/17 18:26 11/02/17 18:26 11/02/17 18:26 - Notes Notes: Physical Exam: General: Alert, appears well. HEENT: Normocephalic. Atraumatic. PERRL. Extraocular movements intact. Oropharynx clear. Front lower 4 teeth broken off at the gum line. Neck: Supple. Non-tender. Respiratory: No respiratory distress. Clear and equal breath sounds bilaterally. Cardiovascular: Regular rate and rhythm. Abdominal: Normal Inspection. Soft. Non-tender. No distension. Normal Bowel Sounds. Back: Non-tender. No deformity or step off. Extremities: Moves all four extremities. Upper extremities: Normal inspection. Normal ROM. Lower extremities: Normal inspection. No edema. Normal ROM. Neurological: Normal cognition. AAOx3. Normal speech. Psychological: Normal affect. Normal Mood. Skin: Warm. Dry. Normal color. (ANDRÉS NAIR) Course - Laboratory Result Diagrams: 11/02/17 19:45 11/02/17 19:45 <ANDRÉS NAIR - Last Filed: 11/02/17 20:28> - Laboratory Result Diagrams: 11/02/17 19:45 11/02/17 19:45 - Diagnostic Test Radiology reviewed: Image reviewed, Reports reviewed - Acute abdominal series shows constipation <ELVIN NORMAN - Last Filed: 11/02/17 23:42> - Re-evaluation Re-evalutation: 11/02/17 23:37 Patient was given a warm glass of water to drink and she kept down without difficulty. Previously she had stated the reason that she cannot swallow is because of her bad teeth and wanted them taken care of. She explained her high blood sugar by stating she did not have any needles to inject insulin. At this time there is a bag of medication and needles, etc. recently procured from the pharmacy. She has an attendant with her. (ELVIN NORMAN) - Vital Signs Vital signs: Temp Pulse Resp BP Pulse Ox 98.4 F 82 16 164/81 H 100 11/02/17 18:26 11/02/17 18:26 11/02/17 18:26 11/02/17 22:01 11/02/17 22:02 - Laboratory Laboratory results interpreted by me: 11/02/17 11/02/17 11/02/17 19:45 19:45 21:28 Carbon Dioxide 31 H Glucose 417 H* Hemoglobin A1c % 9.5 H Direct Bilirubin 0.5 H AST 59 H Alkaline Phosphatase 298 H Albumin 3.3 L Urine Protein 100 H Urine Glucose (UA) >=500 H Urine Ketones TRACE H Urine Urobilinogen 2.0 H Urine Ascorbic Acid 20 H Discharge <ANDRÉS NAIR - Last Filed: 11/02/17 20:28> <ELVIN NORMAN - Last Filed: 11/02/17 23:42> - Discharge Clinical Impression: Poorly controlled diabetes mellitus Constipation Qualifiers: Constipation type: unspecified constipation type Qualified Code(s): K59.00 - Constipation, unspecified Swallowing difficulty Qualifiers: Dysphagia type: unspecified Qualified Code(s): R13.10 - Dysphagia, unspecified Condition: Stable Disposition: HOME, SELF-CARE Additional Instructions: You should take something like MiraLAX every day to help with your constipation. Be sure to check your blood sugars regularly and not miss any doses of your insulin. Follow-up with your doctor in the next 1-2 days to discuss your diabetes management, your dental care, and your problems with swallowing. RETURN TO THE EMERGENCY ROOM IF ANY NEW OR WORSENING SYMPTOMS. Referrals: NAE DE LA FUENTE MD [Primary Care Provider] - Follow up tomorrow Scribe Attestation: 11/02/17 21:50 I personally performed the services described in the documentation, reviewed and edited the documentation which was dictated to the scribe in my presence, and it accurately records my words and actions. (ELVIN NORMAN) Scribe Documentation - Scribe Written by Keyana:: Keyana Abebe 11/02/172019 acting as scribe for :: Zulma <ANDRÉS NAIR - Last Filed: 11/02/17 20:28>
[2017-11-02] MEDS ORDERED: METOCLOPRAMIDE HCL INJ/PF 10 MG/2 ML SDV IV ONE (20:30)
--- NOTE | 2017-11-02 20:35 | RADIOLOGY REPORT (SQ) ---
EXAM DESCRIPTION: ACUTE ABDOMEN SERIES COMPLETED DATE/TIME: 11/02/2017 8:14 pm REASON FOR STUDY: abd pain; eval COMPARISON: None. NUMBER OF VIEWS: Three views. TECHNIQUE: Frontal chest, supine abdomen and upright/ abdomen radiographic images acquired. LIMITATIONS: None. FINDINGS: CHEST: Lungs clear of infiltrates. FREE AIR: None. No abnormal gas collections. BOWEL GAS PATTERN: Nonobstructive gas pattern. Considerable stool is present. CALCIFICATIONS: No suspicious calcifications. HARDWARE: None in the abdomen. SOFT TISSUES: No gross mass or suggestion of organomegaly. BONES: Lower thoracic scoliosis. OTHER: No other significant finding. IMPRESSION: Scoliosis. Possible constipation. TECHNICAL DOCUMENTATION: JOB ID: [id number] [employer]+- All Rights Reserved Reading location - IP/workstation name: [email or web address]
[2017-11-02 20:36] LABS: ALANINE AMINOTRANSFERASE 52 U/L (9-52); ALBUMIN 3.3 g/dL (3.5-5.0); ALKALINE PHOSPHATASE 298 U/L (38-126); ANION GAP 10 (5-19); ASPARTATE AMINO TRANSFERASE 59 U/L (14-36); BILIRUBIN,DIRECT 0.5 mg/dL (0.0-0.4); BILIRUBIN,TOTAL 0.5 mg/dL (0.2-1.3); BLOOD UREA NITROGEN 15 mg/dL (7-20); CALCIUM 9.8 mg/dL (8.4-10.2); CARBON DIOXIDE 31 mmol/L (22-30); CHLORIDE 98 mmol/L (98-107); LIPASE 284.1 U/L (23-300); POTASSIUM 4.6 mmol/L (3.6-5.0); SODIUM 138.8 mmol/L (137-145); TOTAL PROTEIN 7.8 g/dL (6.3-8.2)
[2017-11-02 20:47] LABS: GLUCOSE 417 mg/dL (75-110)
[2017-11-02 22:00] LABS: APPEARANCE,URINE CLEAR; BILIRUBIN,URINE NEGATIVE (NEGATIVE); COLOR,URINE YELLOW; GLUCOSE, URINE >=500 mg/dL (NEGATIVE); KETONES,URINE TRACE mg/dL (NEGATIVE); LEUKOCYTE ESTERASE,URINE NEGATIVE (NEGATIVE); NITRITE,URINE NEGATIVE (NEGATIVE); PROTEIN,URINE 100 mg/dL (NEGATIVE); URINE SPECIFIC GRAVITY 1.029
[2017-11-02] MEDS ORDERED: INSULIN REG, HUMAN 100 UNIT/ML 3 ML VIAL (PYX) IV ONE (22:27)
[2017-11-03 00:13] VITALS: BP 160/99
== END 2017-11-03 | disposition home or self-care (01) ==
LOC: ER 18:21
DX: R13.10 Dysphagia, unspecified (principal); K59.00 Constipation, unspecified; E11.9 Type 2 diabetes mellitus without complications; I10 Essential (primary) hypertension; K21.9 Gastro-esophageal reflux disease without esophagitis; E78.00 Pure hypercholesterolemia, unspecified; Z79.4 Long term (current) use of insulin
CPT/HCPCS: 99284; 96374; 36415; 83690; 85025; 80053; 81001; 83036; 74022; J2765; A9270; J1815

== ENCOUNTER 2017-11-04 19:51 | Emergency (ER) | payer MEDICARE, MEDICAID ==
--- NOTE | 2017-11-04 20:31 | ER Document Report ---
ED Medical Screen (RME) - General Chief Complaint: Skin Problem Stated Complaint: BACK PAIN Time Seen by Provider: 11/04/17 20:26 Notes: RAPID MEDICAL EVALUATION DISCLOSURE I have seen this patient as part of a Rapid Medical Evaluation and, if applicable, placed any initially appropriate orders. The patient will be seen and fully evaluated, including a full history and physical exam, by a provider ( in Main ED or Fast Track) when a room becomes available. 59-year-old female here with complaints of sores on both hips that developed 2 days ago. She endorses subjective fevers as well. There is no drainage but she states that "the skin is so raw". She denies any falls or traumatic impact. The patient is a poor historian and for this reason I am unable to obtain an accurate or reliable history or review of systems from her. EXAM Deferred until patient can be unclothed and gowned in exam room TRAVEL OUTSIDE OF THE [place] IN LAST 30 DAYS: No - Related Data Allergies/Adverse Reactions: No Known Allergies Allergy (Verified 11/04/17 19:52) Past Medical History - Social History Family history: None - Past Medical History Cardiac Medical History: Reports: Hx Hypercholesterolemia, Hx Hypertension Pulmonary Medical History: Reports: Hx Asthma Endocrine Medical History: Reports: Hx Diabetes Mellitus Type 1 - on insulin, Hx Diabetes Mellitus Type 2 Renal/ Medical History: Denies: Hx Peritoneal Dialysis GI Medical History: Reports: Hx Gastroesophageal Reflux Disease, Hx Hepatitis Psychiatric Medical History: Reports: Hx Depression Infectious Medical History: Reports: Hx Hepatitis Past Surgical History: Reports: Hx Abdominal Surgery - Per patient. - Immunizations Hx Diphtheria, Pertussis, Tetanus Vaccination: No Physical Exam - Vital signs Vitals: Temp Pulse Resp BP Pulse Ox 98.6 F 92 18 153/88 H 100 11/04/17 20:04 11/04/17 20:04 11/04/17 20:04 11/04/17 20:04 11/04/17 20:04 Course - Vital Signs Vital signs: Temp Pulse Resp BP Pulse Ox 98.6 F 92 18 153/88 H 100 11/04/17 20:04 11/04/17 20:04 11/04/17 20:04 11/04/17 20:04 11/04/17 20:04 Doctor's Discharge - Discharge Referrals: NAE DE LA FUENTE MD [Primary Care Provider] - Follow up as needed
[2017-11-04] MEDS ORDERED: NORMAL SALINE 1000 ML 1,000 ML IV ONE ×2 (21:13→22:27)
--- NOTE | 2017-11-04 22:40 | ER Document Report ---
ED General - General Chief Complaint: Skin Problem Stated Complaint: BACK PAIN Time Seen by Provider: 11/04/17 20:26 Mode of Arrival: Ambulatory Notes: Patient presents to the ED with complaints of "sore" on buttock that started 2 days ago. She denies trauma, injury. No new soap, lotion, detergent. Patient says the "sore" aches. No purulent drainage. Denies fever, chills. TRAVEL OUTSIDE OF THE [place] IN LAST 30 DAYS: No - HPI Onset: Other - 2 days Onset/Duration: Gradual Quality of pain: Achy Severity: Mild Pain Level: 1 Associated symptoms: None Exacerbated by: Denies Relieved by: Denies Similar symptoms previously: No Recently seen / treated by doctor: No - Related Data Allergies/Adverse Reactions: No Known Allergies Allergy (Verified 11/04/17 19:52) Past Medical History - Social History Smoking Status: Never Smoker Family History: Reviewed & Not Pertinent Patient has suicidal ideation: No Patient has homicidal ideation: No - Past Medical History Cardiac Medical History: Reports: Hx Hypercholesterolemia, Hx Hypertension Pulmonary Medical History: Reports: Hx Asthma Endocrine Medical History: Reports: Hx Diabetes Mellitus Type 1 - on insulin, Hx Diabetes Mellitus Type 2 Renal/ Medical History: Denies: Hx Peritoneal Dialysis GI Medical History: Reports: Hx Gastroesophageal Reflux Disease, Hx Hepatitis Psychiatric Medical History: Reports: Hx Depression Infectious Medical History: Reports: Hx Hepatitis Past Surgical History: Reports: Hx Abdominal Surgery - Per patient. - Immunizations Hx Diphtheria, Pertussis, Tetanus Vaccination: No Review of Systems - Review of Systems Constitutional: No symptoms reported EENT: No symptoms reported Cardiovascular: No symptoms reported Respiratory: No symptoms reported Gastrointestinal: No symptoms reported Genitourinary: No symptoms reported Female Genitourinary: No symptoms reported Musculoskeletal: No symptoms reported Skin: Other - skin avulsion to buttock Neurological/Psychological: No symptoms reported -: Yes All other systems reviewed and negative Physical Exam - Vital signs Vitals: Temp Pulse Resp BP Pulse Ox 98.6 F 92 18 153/88 H 100 11/04/17 20:04 11/04/17 20:04 11/04/17 20:04 11/04/17 20:04 11/04/17 20:04 Interpretation: Normal - Notes Notes: PHYSICAL EXAMINATION: GENERAL: Well-appearing, well-nourished and in no acute distress. HEAD: Atraumatic, normocephalic. EYES: Pupils equal round and reactive to light, extraocular movements intact, conjunctiva are normal. ENT: Nares patent, oropharynx clear without exudates. Moist mucous membranes. NECK: Normal range of motion, supple without lymphadenopathy LUNGS: Breath sounds clear to auscultation bilaterally and equal. No wheezes rales or rhonchi. HEART: Regular rate and rhythm without murmurs ABDOMEN: Soft, nontender, nondistended abdomen. No guarding, no rebound. No masses appreciated. Female : deferred Musculoskeletal: Normal range of motion, no pitting or edema. No cyanosis. Skin avulsion in the crease of the buttock. NEUROLOGICAL: Cranial nerves grossly intact. Normal speech, normal gait. Normal sensory, motor exams PSYCH: Normal mood, normal affect. SKIN: Warm, Dry, normal turgor, no rashes or lesions noted. - General General appearance: Alert Course - Re-evaluation Re-evalutation: 11/05/17 00:04 Skin avulsion noted on physical exam. Patient says she's diabetic. Requesting her blood sugar to be tested. Accucheck done and blood glucose elevated. Given 1 L of normal saline. Labs sent. A second liter of normal saline ordered. Blood sugar coming down with fluids. Gave the patient 5U of insulin. I will start the patient on antibiotics prophylactically for her skin avulsion. I instructed patient to take medication as directed, to follow up with her PCP this week, and to return for worsening symptoms. patient is agreeable with the plan of care. - Vital Signs Vital signs: Temp Pulse Resp BP Pulse Ox 98.6 F 92 18 153/88 H 100 11/04/17 20:04 11/04/17 20:04 11/04/17 20:04 11/04/17 20:04 11/04/17 20:04 - Laboratory Result Diagrams: 11/04/17 23:27 11/04/17 23:27 Laboratory results interpreted by me: 11/04/17 11/04/17 11/04/17 21:11 23:27 23:27 Hgb 11.7 L D Hct 35.3 L Creatinine 0.48 L Glucose 391 H POC Glucose 469 H* Direct Bilirubin 0.5 H AST 45 H Alkaline Phosphatase 238 H Albumin 2.8 L Discharge - Discharge Clinical Impression: Skin avulsion Condition: Good Disposition: HOME, SELF-CARE Instructions: Skin Tear ([facility]) Prescriptions: Cephalexin Monohydrate [Keflex 500 mg Capsule] 500 mg PO BID 7 Days #14 capsule Sulfamethoxazole/Trimethoprim [Bactrim Ds Tablet] 1 each PO BID 7 Days #14 tablet Referrals: NAE DE LA FUENTE MD [Primary Care Provider] - Follow up as needed
[2017-11-04 23:43] LABS: ABSOLUTE LYMPHOCYTES (AUTO) 2.2 10^3/uL (0.5-4.7); ABSOLUTE MONOCYTES (AUTO) 0.5 10^3/uL (0.1-1.4); ABSOLUTE NEUT (AUTO) 2.2 10^3/uL (1.7-8.2); BASOPHILS % (AUTO) 0.8 % (0-2); EOSINOPHILS % (AUTO) 0.2 % (0-6); HEMATOCRIT 35.3 % (36.0-47.0); LYMPHOCYTES % (AUTO) 43.9 % (13-45); MEAN CORPUSCULAR HEMOGLOBIN 29.7 pg (27.0-33.4); MEAN CORPUSCULAR VOLUME 90 fl (80-97); MONOCYTES % (AUTO) 10.2 % (3-13); PLATELET COUNT 151 10^3/uL (150-450); RED BLOOD COUNT 3.93 10^6/uL (3.72-5.28); RED CELL DISTRIBUTION WIDTH 13.5 % (11.5-14.0); SEGMENTED NEUTROPHILS % (AUTO) 44.9 % (42-78); TOTAL CELLS COUNTED % (AUTO) 100 %
[2017-11-04 23:44] LABS: HEMOGLOBIN 11.7 g/dL (12.0-15.5)
[2017-11-04 23:56] LABS: ALANINE AMINOTRANSFERASE 50 U/L (9-52); ALBUMIN 2.8 g/dL (3.5-5.0); ALKALINE PHOSPHATASE 238 U/L (38-126); ANION GAP 6 (5-19); ASPARTATE AMINO TRANSFERASE 45 U/L (14-36); BILIRUBIN,DIRECT 0.5 mg/dL (0.0-0.4); BILIRUBIN,TOTAL 0.6 mg/dL (0.2-1.3); BLOOD UREA NITROGEN 13 mg/dL (7-20); CALCIUM 8.9 mg/dL (8.4-10.2); CARBON DIOXIDE 29 mmol/L (22-30); CHLORIDE 102 mmol/L (98-107); GLUCOSE 391 mg/dL (75-110); POTASSIUM 4.4 mmol/L (3.6-5.0); SODIUM 137.2 mmol/L (137-145); TOTAL PROTEIN 6.8 g/dL (6.3-8.2)
[2017-11-05] MEDS ORDERED: INSULIN REG, HUMAN 100 UNIT/ML 3 ML VIAL (PYX) SUBCUT ONE (00:01)
[2017-11-05 00:40] VITALS: BP 174/87
== END 2017-11-05 00:40 | disposition home or self-care (01) ==
LOC: ER 19:51
DX: S31.809A Unspecified open wound of unspecified buttock, initial encounter (principal); X58.XXXA Exposure to other specified factors, initial encounter; E11.65 Type 2 diabetes mellitus with hyperglycemia
CPT/HCPCS: 99283; 96360; 96361; 36415; 82962; 85025; 80053; A9270; J7030; J1815

== ENCOUNTER 2017-11-06 23:25 | Emergency (ER) | payer MEDICARE, MEDICAID ==
--- NOTE | 2017-11-07 00:35 | ER Document Report ---
ED Medical Screen (RME) - General Chief Complaint: Constipation Stated Complaint: CONSTIPATION Time Seen by Provider: 11/07/17 00:28 Mode of Arrival: Ambulatory Information source: Patient TRAVEL OUTSIDE OF THE [place] IN LAST 30 DAYS: No - HPI Patient complains to provider of: constipation Notes: 11/07/17 00:33 Patient is here with complaints of abdominal pain and constipation. She was recently seen here for similar symptoms. She had an acute abdominal series which showed possible constipation. States that she has not had a bowel movement for the last 3 days. She states she feels like the stools in her rectal area but will not come out. She also complains of generalized abdominal pain and states that she has had some vomiting. No fever. Physical exam: Patient is in no acute distress, she is nontoxic-appearing. Patient has some mild generalized abdominal tenderness on exam. Unable to visualize recommend triage. An initial examination was made on the patient as part of the triage process, and it was determined a more comprehensive evaluation was necessary. Initial labs were ordered and patient was transferred to another provider in the ED who assumed care and finished evaluation and plan. - Related Data Allergies/Adverse Reactions: No Known Allergies Allergy (Verified 11/04/17 19:52) Past Medical History - Social History Frequency of alcohol use: None Drug Abuse: None Family history: None - Past Medical History Cardiac Medical History: Reports: Hx Hypercholesterolemia, Hx Hypertension Pulmonary Medical History: Reports: Hx Asthma Endocrine Medical History: Reports: Hx Diabetes Mellitus Type 1 - on insulin, Hx Diabetes Mellitus Type 2 Renal/ Medical History: Denies: Hx Peritoneal Dialysis GI Medical History: Reports: Hx Gastroesophageal Reflux Disease, Hx Hepatitis Psychiatric Medical History: Reports: Hx Depression Infectious Medical History: Reports: Hx Hepatitis Past Surgical History: Reports: Hx Abdominal Surgery - Per patient. - Immunizations Hx Diphtheria, Pertussis, Tetanus Vaccination: No Physical Exam - Vital signs Vitals: Temp Pulse Resp BP Pulse Ox 98.5 F 90 18 141/97 H 99 11/07/17 00:14 11/07/17 00:14 11/07/17 00:14 11/07/17 00:11/07/17 00:14 Course - Vital Signs Vital signs: Temp Pulse Resp BP Pulse Ox 98.5 F 90 18 141/97 H 99 11/07/17 00:14 11/07/17 00:14 11/07/17 00:14 11/07/17 00:14 11/07/17 00:14 Doctor's Discharge - Discharge Referrals: NAE DE LA FUENTE MD [Primary Care Provider] - Follow up as needed
[2017-11-07 02:10] LABS: APPEARANCE,URINE CLEAR; BILIRUBIN,URINE NEGATIVE (NEGATIVE); CALCIUM OXALATE CRYSTALS,URINE MODERATE /HPF; COLOR,URINE AMBER; GLUCOSE, URINE >=500 mg/dL (NEGATIVE); KETONES,URINE NEGATIVE (NEGATIVE); LEUKOCYTE ESTERASE,URINE NEGATIVE (NEGATIVE); NITRITE,URINE NEGATIVE (NEGATIVE); PROTEIN,URINE >=500 mg/dL (NEGATIVE); URINE SPECIFIC GRAVITY 1.033
[2017-11-07 02:15] LABS: ABSOLUTE LYMPHOCYTES (AUTO) 2.3 10^3/uL (0.5-4.7); ABSOLUTE MONOCYTES (AUTO) 0.5 10^3/uL (0.1-1.4); ABSOLUTE NEUT (AUTO) 2.2 10^3/uL (1.7-8.2); BASOPHILS % (AUTO) 0.6 % (0-2); EOSINOPHILS % (AUTO) 0.3 % (0-6); HEMATOCRIT 41.8 % (36.0-47.0); HEMOGLOBIN 13.6 g/dL (12.0-15.5); MEAN CORPUSCULAR HEMOGLOBIN 29.5 pg (27.0-33.4); MEAN CORPUSCULAR HGB CONC 32.7 g/dL (32.0-36.0); MEAN CORPUSCULAR VOLUME 90 fl (80-97); PLATELET COUNT 229 10^3/uL (150-450); RED BLOOD COUNT 4.63 10^6/uL (3.72-5.28); RED CELL DISTRIBUTION WIDTH 13.5 % (11.5-14.0); SEGMENTED NEUTROPHILS % (AUTO) 43.1 % (42-78); TOTAL CELLS COUNTED % (AUTO) 100 %; WHITE BLOOD COUNT 5.1 10^3/uL (4.0-10.5)
[2017-11-07 03:04] LABS: ALANINE AMINOTRANSFERASE 49 U/L (9-52); ALBUMIN 3.5 g/dL (3.5-5.0); ALKALINE PHOSPHATASE 277 U/L (38-126); ANION GAP 12 (5-19); ASPARTATE AMINO TRANSFERASE 58 U/L (14-36); BILIRUBIN,DIRECT 0.6 mg/dL (0.0-0.4); BILIRUBIN,TOTAL 0.6 mg/dL (0.2-1.3); BLOOD UREA NITROGEN 18 mg/dL (7-20); CALCIUM 9.8 mg/dL (8.4-10.2); CARBON DIOXIDE 30 mmol/L (22-30); CHLORIDE 101 mmol/L (98-107); GLUCOSE 299 mg/dL (75-110); LIPASE 214.2 U/L (23-300); POTASSIUM 4.1 mmol/L (3.6-5.0); SODIUM 142.8 mmol/L (137-145); TOTAL PROTEIN 8.3 g/dL (6.3-8.2)
[2017-11-07] MEDS ORDERED: PEG 3350/NA SULF,BICARB,CL/KCL 4000 ML PO ONE (03:46)
--- NOTE | 2017-11-07 03:47 | ER Document Report ---
ED GI/ - General Chief Complaint: Constipation Stated Complaint: CONSTIPATION Time Seen by Provider: 11/07/17 00:28 Mode of Arrival: Ambulatory Notes: The patient is a 67-year-old female who presents with 3 days of constipation. She tried Ex-Lax without much relief of her symptoms. She is having mild abdominal cramping, but denies abdominal pain, nausea, vomiting, fevers or abdominal distention. TRAVEL OUTSIDE OF THE [place] IN LAST 30 DAYS: No - Related Data Allergies/Adverse Reactions: No Known Allergies Allergy (Verified 11/04/17 19:52) Past Medical History - General Information source: Patient - Social History Smoking Status: Never Smoker Frequency of alcohol use: None Drug Abuse: None Family History: Reviewed & Not Pertinent Patient has suicidal ideation: No Patient has homicidal ideation: No - Past Medical History Cardiac Medical History: Reports: Hx Hypercholesterolemia, Hx Hypertension Pulmonary Medical History: Reports: Hx Asthma Endocrine Medical History: Reports: Hx Diabetes Mellitus Type 1 - on insulin, Hx Diabetes Mellitus Type 2 Renal/ Medical History: Denies: Hx Peritoneal Dialysis GI Medical History: Reports: Hx Gastroesophageal Reflux Disease, Hx Hepatitis Psychiatric Medical History: Reports: Hx Depression Infectious Medical History: Reports: Hx Hepatitis Past Surgical History: Reports: Hx Abdominal Surgery - Per patient. - Immunizations Hx Diphtheria, Pertussis, Tetanus Vaccination: No Review of Systems - Review of Systems Notes: REVIEW OF SYSTEMS: CONSTITUTIONAL: -fevers, -chills EENT: -eye pain, -difficulty swallowing, -nasal congestion CARDIOVASCULAR: -chest pain, -syncope. RESPIRATORY: -cough, -SOB GASTROINTESTINAL: -abdominal pain, -nausea, -vomiting, -diarrhea, +constipation GENITOURINARY: -dysuria, -hematuria MUSCULOSKELETAL: -back pain, -neck pain SKIN: -rash or skin lesions. HEMATOLOGIC: -easy bruising or bleeding. LYMPHATIC: -swollen, enlarged glands. NEUROLOGICAL: -altered mental status or loss of consciousness, -headache, - neurologic symptoms PSYCHIATRIC: -anxiety, -depression. ALL OTHER SYSTEMS REVIEWED AND NEGATIVE. Physical Exam - Vital signs Vitals: Temp Pulse Resp BP Pulse Ox 98.5 F 90 18 141/97 H 99 11/07/17 00:14 11/07/17 00:14 11/07/17 00:14 11/07/17 00:14 11/07/17 00:14 - Notes Notes: PHYSICAL EXAMINATION: GENERAL: Well-appearing, well-nourished and in no acute distress. HEAD: Atraumatic, normocephalic. EYES: Pupils equal round and reactive to light, extraocular movements intact, sclera anicteric, conjunctiva are normal. ENT: nares patent, oropharynx clear without exudates. Moist mucous membranes. NECK: Normal range of motion, supple without lymphadenopathy LUNGS: Breath sounds clear to auscultation bilaterally and equal. No wheezes rales or rhonchi. HEART: Regular rate and rhythm without murmurs ABDOMEN: Soft, nontender, normoactive bowel sounds. No guarding, no rebound. No masses appreciated. RECTAL: Soft stool in rectal vault. EXTREMITIES: Normal range of motion, no pitting or edema. No cyanosis. NEUROLOGICAL: Cranial nerves grossly intact. Normal speech, normal gait. Normal sensory and motor exams. PSYCH: Normal mood, normal affect. SKIN: Stage 1 decubitus ulcer. Warm, Dry, normal turgor. Course - Re-evaluation Re-evalutation: Patient's abdomen is completely soft and nontender. Rectal exam does not reveal an impaction. She has good bowel sounds and is not distended. No suspicion for bowel obstruction, appendicitis or diverticulitis at this time. She has had frequent episodes of constipation. Will send her home on Althea[facility]x and have her follow-up with her primary care physician and GI for further evaluation and treatment. Given strict return precautions and she understands. - Vital Signs Vital signs: Temp Pulse Resp BP Pulse Ox 98.5 F 90 18 141/97 H 99 11/07/17 00:14 11/07/17 00:14 11/07/17 00:14 11/07/17 00:14 11/07/17 00:14 - Laboratory Result Diagrams: 11/07/17 01:40 11/07/17 01:40 Laboratory results interpreted by me: 11/07/17 11/07/17 11/07/17 01:40 01:40 01:40 Lymphocytes % 46.0 H Creatinine 0.50 L Glucose 299 H Direct Bilirubin 0.6 H AST 58 H Alkaline Phosphatase 277 H Total Protein 8.3 H Urine Protein >=500 H Urine Glucose (UA) >=500 H Urine Urobilinogen 4.0 H Urine Ascorbic Acid 40 H Discharge - Discharge Clinical Impression: Constipated Qualifiers: Constipation type: unspecified constipation type Qualified Code(s): K59.00 - Constipation, unspecified Stage 1 decubitus ulcer Qualifiers: Pressure ulcer location: sacral region Qualified Code(s): L89.151 - Pressure ulcer of sacral region, stage 1 Condition: Stable Disposition: HOME, SELF-CARE Additional Instructions: ABDOMINAL PAIN: There are many causes of abdominal pain. Pain can mean a serious problem requiring surgery (such as appendicitis). It can also be an innocent problem that goes away on its own (such as a viral infection). Often, time must pass to determine the cause of pain. The physician does not feel that hospitalization is necessary, at present. Things may change within the next 24 hours. Call the doctor or come back for re- examination if any problems occur, such as: (1) Pain that becomes more severe, steady, or becomes concentrated in one specific area. Also, pain that is more severe with movement or coughing. (2) Vomiting that persists or becomes more frequent. (3) Blood in the vomitus, urine, or bowel movements. Blood in the stool may have a tarry or black appearance. (4) Shaking chills or fever greater than 100 degrees F. (5) The abdomen becomes more distended or swollen. (6) Bowel movements cease. (7) Failure to improve as expected. NORMAL EXAM AND WORKUP: At this time, your examination and workup show no significant abnormality. No significant abnormal physical findings are noted. All laboratory, EKG, and imaging (x-ray, CT scans, ultrasound) studies that were ordered show no significant abnormality. Although your examination and all studies that were ordered showed no significant abnormal finding, there are no examinations and no studies that are 100% accurate. There is always the possibility that some abnormality could exist and not be detected with physical examination or within the limits and capabilities of laboratory and other studies. You should return or follow up as you were instructed on your visit today for further evaluation if your symptoms do not resolve. CONSTIPATION: Constipation is a common problem. It is especially likely as you get older. Constipation is a common cause of abdominal pain, but sometimes causes no symptoms at all. Causes of constipation include certain medications, dehydration, diets, inactivity, and low-fiber intake. Rarely, it can be a symptom of underlying disease. The physician has evaluated you for this. Avoid constipation by eating a diet high in fiber, fruits, and vegetables. Drink plenty of liquids. Get regular exercise. If possible, avoid constipating medicines like narcotic pain medication. Some vitamin tablets can cause constipation. Stool softeners may be needed for difficult cases. An excellent stool softener is Konsyl which is available at [employer], and [employer] drug [employer]. Just add a teaspoon to a glass of pineapple or orange juice daily or twice a day if needed. Laxatives are useful for occasional constipation. You should use them only when necessary. Too-frequent use can make your bowels dependent on them. Some over the counter laxatives available without prescription are: Milk of Magnesia, 1-2 tablespoons twice a day Dulcolax, 5 mg pill or 10 mg suppository. Citrate of Magnesia, 4-5 ounces a day for a day or two For acute constipation, Fleet's Enemas and Dulcolax suppositories are helpful. Chronic, manager intermediate use of laxatives or enemas is not a good idea. Your bowel may become dependant on them. You do not need to have a bowel movement every day. Many people do fine with a bowel movement every three or four days. You should call your doctor or return for re-evaluation if you pass blood in the stool, or if you develop fever or increasing abdominal pain. BULK LAXATIVES: Bulk laxatives make the stool softer and bulkier. They're useful for preventing constipation. You can choose between psyllium, methylcellulose, and polycarbophil. They are available without a prescription. Psyllium brand names include Konsyl, Metamucil, Perdiem, Effer-Syllium and Hydrocil. It's available as powder, flavored drink powder, or chewable. The usual dose of psyllium powder is one heaping teaspoon in water each morning, increasing to twice a day if needed. Tolley juice can disguise the slightly grainy texture. Methylcellulose is marketed as Citrucel and other brands. The average dose is two grams in a cup of water one to three times a day. Polycarbophil is marketed as Fiber-Con. Take two tablets with a cup of water one to three times a day. LAXATIVE: A laxative agent has been prescribed for your condition. This should result in passage of stool within 12 hours. Some mild intestinal cramping is common as the hard stool begins to move. You may have loose or runny stools for a short time. Contact your doctor if there is severe cramping, vomiting, or passage of blood. Return for further care if this medicine fails to improve your condition. FOLLOW-UP CARE: If you have been referred to a physician for follow-up care, call the physician s office for an appointment as you were instructed or within the next two days. If you experience worsening or a significant change in your symptoms, notify the physician immediately or return to the Emergency Department at any time for re-evaluation. Referrals: NAE DE LA FUENTE MD [Primary Care Provider] - Follow up as needed
[2017-11-07] MEDS ORDERED: PEG 3350/NA SULF,BICARB,CL/KCL 4000 ML ONE (04:09)
[2017-11-07 05:11] VITALS: BP 162/69
== END 2017-11-07 05:00 | disposition home or self-care (01) ==
LOC: ER 23:25
DX: K59.00 Constipation, unspecified (principal); E11.9 Type 2 diabetes mellitus without complications; I10 Essential (primary) hypertension; J45.909 Unspecified asthma, uncomplicated; L89.151 Pressure ulcer of sacral region, stage 1
CPT/HCPCS: 99284; 36415; 83690; 85025; 80053; 81001; J3490

== ENCOUNTER 2017-11-14 12:59 | Emergency (ER) | payer MEDICARE, MEDICAID ==
[2017-11-14] MEDS ORDERED: INSULIN DETEMIR 100 UNIT/ML 3 ML PEN SUBCUT ONE (13:20)
--- NOTE | 2017-11-14 13:23 | ER Document Report ---
ED Medical Screen (RME) - General Chief Complaint: High Blood Sugar Stated Complaint: BLOOD SUGAR ISSUES Time Seen by Provider: 11/14/17 13:20 Notes: The patient is a 67-year-old female, past medical history dementia, 2 bedsores, presents after she has not taken her insulin or antibiotics for several days. According to her granddaughter, who is her caretaker resort, she recently moved back home and the patient threw away her insulin. She has insulin waiting for her at [facility] tomorrow. She usually takes 30 units of Levemir daily. Patient is only complaining of some dental pain. PE: Poor dentition. RRR. Non-tender abdomen. I have greeted and performed a rapid initial assessment of this patient. A comprehensive ED assessment and evaluation of the patient, analysis of test results and completion of the medical decision making process will be conducted by additional ED providers. TRAVEL OUTSIDE OF THE [place] IN LAST 30 DAYS: No - Related Data Allergies/Adverse Reactions: No Known Allergies Allergy (Verified 11/14/17 13:01) Past Medical History - Social History Family history: None - Past Medical History Cardiac Medical History: Reports: Hx Hypercholesterolemia, Hx Hypertension Pulmonary Medical History: Reports: Hx Asthma Endocrine Medical History: Reports: Hx Diabetes Mellitus Type 1 - on insulin, Hx Diabetes Mellitus Type 2 Renal/ Medical History: Denies: Hx Peritoneal Dialysis GI Medical History: Reports: Hx Gastroesophageal Reflux Disease, Hx Hepatitis Psychiatric Medical History: Reports: Hx Depression Infectious Medical History: Reports: Hx Hepatitis Past Surgical History: Reports: Hx Abdominal Surgery - Per patient. - Immunizations Hx Diphtheria, Pertussis, Tetanus Vaccination: No Doctor's Discharge - Discharge Referrals: NAE DE LA FUENTE MD [Primary Care Provider] - Follow up as needed
[2017-11-14] MEDS: NORMAL SALINE 1000 ML 1,000 ML IV PRN ×2 (15:46→15:47)
[2017-11-14 15:49] LABS: ABSOLUTE LYMPHOCYTES (AUTO) 1.9 10^3/uL (0.5-4.7); ABSOLUTE MONOCYTES (AUTO) 0.8 10^3/uL (0.1-1.4); BASOPHILS % (AUTO) 0.6 % (0-2); EOSINOPHILS % (AUTO) 0.2 % (0-6); HEMATOCRIT 38.4 % (36.0-47.0); HEMOGLOBIN 12.5 g/dL (12.0-15.5); LYMPHOCYTES % (AUTO) 39.2 % (13-45); MEAN CORPUSCULAR HEMOGLOBIN 29.4 pg (27.0-33.4); MEAN CORPUSCULAR HGB CONC 32.5 g/dL (32.0-36.0); MEAN CORPUSCULAR VOLUME 90 fl (80-97); PLATELET COUNT 310 10^3/uL (150-450); RED BLOOD COUNT 4.25 10^6/uL (3.72-5.28); RED CELL DISTRIBUTION WIDTH 13.7 % (11.5-14.0); TOTAL CELLS COUNTED % (AUTO) 100 %; WHITE BLOOD COUNT 4.7 10^3/uL (4.0-10.5)
--- NOTE | 2017-11-14 15:51 | ER Document Report ---
ED General - General Chief Complaint: High Blood Sugar Stated Complaint: BLOOD SUGAR ISSUES Time Seen by Provider: 11/14/17 13:20 Mode of Arrival: Ambulatory Information source: Patient, Friend Notes: 67-year-old female with dementia, hypertension, hyperlipidemia, type 1 diabetes presents with multiple complaints including tooth pain, difficulty swallowing, elevated blood sugar, buttocks wound. Patient is a poor historian but states that she has been experiencing mouth pain for several months. She was recently placed on antibiotics for preparation for total mouth tooth extraction. Patient recently moved in with her granddaughter but has not had access to her insulin. Patient also complaining of buttocks pain that have been ongoing for several months. She denies any fever, chills, nausea, vomiting, chest pain and shortness of breath. TRAVEL OUTSIDE OF THE [place] IN LAST 30 DAYS: No - Related Data Allergies/Adverse Reactions: No Known Allergies Allergy (Verified 11/14/17 13:01) Past Medical History - General Information source: Patient, Relative, [facility] Records Cannot obtain history due to: Dementia - Social History Smoking Status: Never Smoker Chew tobacco use (# tins/day): No Frequency of alcohol use: None Drug Abuse: None Lives with: Family Family History: Reviewed & Not Pertinent Patient has suicidal ideation: No Patient has homicidal ideation: No - Past Medical History Cardiac Medical History: Reports: Hx Hypercholesterolemia, Hx Hypertension Pulmonary Medical History: Reports: Hx Asthma Endocrine Medical History: Reports: Hx Diabetes Mellitus Type 1 - on insulin, Hx Diabetes Mellitus Type 2 Renal/ Medical History: Denies: Hx Peritoneal Dialysis GI Medical History: Reports: Hx Gastroesophageal Reflux Disease, Hx Hepatitis Psychiatric Medical History: Reports: Hx Depression Infectious Medical History: Reports: Hx Hepatitis Past Surgical History: Reports: Hx Abdominal Surgery - Per patient. - Immunizations Hx Diphtheria, Pertussis, Tetanus Vaccination: No Review of Systems - Review of Systems Constitutional: Malaise. denies: Fever EENT: denies: Blurred vision Physical Exam - Vital signs Vitals: Temp Pulse Resp BP Pulse Ox 98.7 F 80 20 161/83 H 96 11/14/17 13:04 11/14/17 13:04 11/14/17 13:04 11/14/17 13:04 11/14/17 13:04 Course - Re-evaluation Re-evalutation: Laboratory 11/14/17 11/14/17 11/14/17 13:13 15:20 15:20 WBC 4.7 RBC 4.25 Hgb 12.5 Hct 38.4 MCV 90 MCH 29.4 MCHC 32.5 RDW 13.7 Plt Count 310 Seg Neutrophils % 43.0 Lymphocytes % 39.2 Monocytes % 17.0 H Eosinophils % 0.2 Basophils % 0.6 Absolute Neutrophils 2.0 Absolute Lymphocytes 1.9 Absolute Monocytes 0.8 Absolute Eosinophils 0.0 Absolute Basophils 0.0 Sodium Cancelled Potassium Cancelled Chloride Cancelled Carbon Dioxide Cancelled Anion Gap Cancelled BUN Cancelled Creatinine Cancelled Est GFR ( Amer) Cancelled Est GFR (Non-Af Amer) Cancelled Glucose Cancelled POC Glucose 463 H* Calcium Cancelled Total Bilirubin Cancelled Direct Bilirubin Cancelled Neonat Total Bilirubin Cancelled Neonat Direct Bilirubin Cancelled Neonat Indirect Bili Cancelled AST Cancelled ALT Cancelled Alkaline Phosphatase Cancelled Total Protein Cancelled Albumin Cancelled 11/14/17 11/14/17 16:42 18:43 WBC RBC Hgb Hct MCV MCH MCHC RDW Plt Count Seg Neutrophils % Lymphocytes % Monocytes % Eosinophils % Basophils % Absolute Neutrophils Absolute Lymphocytes Absolute Monocytes Absolute Eosinophils Absolute Basophils Sodium 140.2 Potassium 4.4 Chloride 101 Carbon Dioxide 31 H Anion Gap 8 BUN 17 Creatinine 0.45 L Est GFR ( Amer) > 60 Est GFR (Non-Af Amer) > 60 Glucose 411 H* POC Glucose 229 H Calcium 9.4 Total Bilirubin 0.6 Direct Bilirubin 0.5 H Neonat Total Bilirubin Not Reportable Neonat Direct Bilirubin Not Reportable Neonat Indirect Bili Not Reportable AST 46 H ALT 43 Alkaline Phosphatase 307 H Total Protein 7.6 Albumin 3.2 L 67-year-old female with dementia, hypertension, hyperlipidemia, type 1 diabetes presents with multiple complaints including tooth pain, difficulty swallowing, elevated blood sugar, buttocks wound. Patient is a poor historian but states that she has been experiencing mouth pain for several months. She was recently placed on antibiotics for preparation for total mouth tooth extraction. Patient recently moved in with her granddaughter but has not had access to her insulin. Patient also complaining of buttocks pain that have been ongoing for several months. 11/14/17 16:24 Granddaughter presents at the bedside and states that the patient recently moved in with her and has been throwing out all of her medications. She states that she was recently living on the [address] "doing things she is not supposed to do". She has tried to place her in a facility but states that they will not take her because she is noncompliant with her medication. She has been in touch with the patient's primary care physician Dr. De La Fuente. She is requesting the patient's home medications of insulin because she cannot find it. An insulin prescription was provided. Patient already has antibiotics of Keflex and Bactrim which the patient's granddaughter was advised that she should continue to take. She states she is going to arrange for home health. Patient provided the opportunity to ask questions, and express concerns. Discharge instructions discussed. Patient is agreeable with discharge home. Return indications explained and discussed with the patient who displays understanding. Patient encouraged to return to the emergency department immediately with any concerns. 11/17/17 02:42 11/17/17 02:45 - Vital Signs Vital signs: Temp Pulse Resp BP Pulse Ox 98.1 F 75 18 154/80 H 98 11/14/17 19:11 11/14/17 19:11 11/14/17 19:11 11/14/17 19:11 11/14/17 19:11 - Laboratory Result Diagrams: 11/14/17 15:20 11/14/17 16:42 Laboratory results interpreted by me: 11/14/17 11/14/17 11/14/17 13:13 15:20 16:42 Monocytes % 17.0 H Carbon Dioxide 31 H Creatinine 0.45 L Glucose 411 H* POC Glucose 463 H* Direct Bilirubin 0.5 H AST 46 H Alkaline Phosphatase 307 H Albumin 3.2 L 11/14/17 18:43 Monocytes % Carbon Dioxide Creatinine Glucose POC Glucose 229 H Direct Bilirubin AST Alkaline Phosphatase Albumin Discharge - Discharge Clinical Impression: Hyperglycemia due to type 1 diabetes mellitus, Pain, dental Decubitus skin ulcer Qualifiers: Pressure injury location: sacral region Pressure injury stage: stage 1 Qualified Code(s): L89.151 - Pressure ulcer of sacral region, stage 1 Condition: Good Disposition: HOME, SELF-CARE Instructions: [facility], Toothache ([facility]) Additional Instructions: Please follow-up with Dr. De La Fuente on Wednesday. Prescriptions: Insulin Glargine,[email or web address] [Lantus Insulin 100 Unit/1 ml 10 ml] 30 unit SUBCUT QHS #1000 unit Referrals: NAE DE LA FUENTE MD [Primary Care Provider] - Follow up as needed
[2017-11-14 17:13] LABS: ALANINE AMINOTRANSFERASE 43 U/L (9-52); ALBUMIN 3.2 g/dL (3.5-5.0); ALKALINE PHOSPHATASE 307 U/L (38-126); ANION GAP 8 (5-19); ASPARTATE AMINO TRANSFERASE 46 U/L (14-36); BILIRUBIN,DIRECT 0.5 mg/dL (0.0-0.4); BILIRUBIN,TOTAL 0.6 mg/dL (0.2-1.3); BLOOD UREA NITROGEN 17 mg/dL (7-20); CALCIUM 9.4 mg/dL (8.4-10.2); CARBON DIOXIDE 31 mmol/L (22-30); CHLORIDE 101 mmol/L (98-107); POTASSIUM 4.4 mmol/L (3.6-5.0); SODIUM 140.2 mmol/L (137-145); TOTAL PROTEIN 7.6 g/dL (6.3-8.2)
[2017-11-14 17:25] LABS: GLUCOSE 411 mg/dL (75-110)
[2017-11-14 19:12] VITALS: BP 154/80
== END 2017-11-14 19:11 | disposition home or self-care (01) ==
LOC: ER 12:59
DX: E10.65 Type 1 diabetes mellitus with hyperglycemia (principal); K08.9 Disorder of teeth and supporting structures, unspecified; L89.151 Pressure ulcer of sacral region, stage 1; F03.90 Unspecified dementia, unspecified severity, without behavioral disturbance, psychotic disturbance, mood disturbance, and anxiety; R13.10 Dysphagia, unspecified; E78.00 Pure hypercholesterolemia, unspecified; I10 Essential (primary) hypertension; Z79.4 Long term (current) use of insulin
CPT/HCPCS: 99285; 96360; 36415; 82962; 85025; 80053; A9270; J7030; J1815

== ENCOUNTER 2017-11-17 18:54 | Emergency (ER) | payer MEDICARE, MEDICAID ==
--- NOTE | 2017-11-17 19:26 | ER Document Report ---
ED Medical Screen (RME) - General Chief Complaint: Altered Mental Status Stated Complaint: PSYCH EVALUATION Time Seen by Provider: 11/17/17 19:15 Notes: The patient is a 67-year-old female, past medical history dementia, 2 bedsores, presents with increasing aggressive behavior. According to the granddaughter, she tried to jump out of the car twice earlier today. She is also refusing to take her insulin or any of her medications. PE: NAD. RRR. Poor dentition. I have greeted and performed a rapid initial assessment of this patient. A comprehensive ED assessment and evaluation of the patient, analysis of test results and completion of the medical decision making process will be conducted by additional ED providers. TRAVEL OUTSIDE OF THE [place] IN LAST 30 DAYS: No - Related Data Allergies/Adverse Reactions: No Known Allergies Allergy (Verified 11/17/17 18:55) Past Medical History - Social History Chew tobacco use (# tins/day): No Frequency of alcohol use: None Drug Abuse: None Family history: None - Past Medical History Cardiac Medical History: Reports: Hx Hypercholesterolemia, Hx Hypertension Pulmonary Medical History: Reports: Hx Asthma Endocrine Medical History: Reports: Hx Diabetes Mellitus Type 1 - on insulin, Hx Diabetes Mellitus Type 2 Renal/ Medical History: Denies: Hx Peritoneal Dialysis GI Medical History: Reports: Hx Gastroesophageal Reflux Disease, Hx Hepatitis Psychiatric Medical History: Reports: Hx Depression Infectious Medical History: Reports: Hx Hepatitis Past Surgical History: Reports: Hx Abdominal Surgery - Per patient. - Immunizations Hx Diphtheria, Pertussis, Tetanus Vaccination: No Physical Exam - Vital signs Vitals: Temp Pulse Resp BP Pulse Ox 98.0 F 95 20 152/82 H 100 11/17/17 19:01 11/17/17 19:01 11/17/17 19:01 11/17/17 19:01 11/17/17 19:01 Course - Vital Signs Vital signs: Temp Pulse Resp BP Pulse Ox 98.0 F 95 20 152/82 H 100 11/17/17 19:01 11/17/17 19:01 11/17/17 19:01 11/17/17 19:01 11/17/17 19:01 Doctor's Discharge - Discharge Referrals: NAE DE LA FUENTE MD [Primary Care Provider] - Follow up as needed
--- NOTE | 2017-11-17 20:21 | ER Document Report ---
ED General - General Chief Complaint: Altered Mental Status Stated Complaint: PSYCH EVALUATION Time Seen by Provider: 11/17/17 19:15 Mode of Arrival: Ambulatory Information source: Patient, [facility] Records Notes: 67-year-old female with hepatitis C, dementia, hyperlipidemia, hypertension, type 1 diabetes presents via private vehicle with her granddaughter after increased aggressive behavior, confusion. Granddaughter of the patient is at the bedside and provides the majority of the history. She states that the patient recently came back to live with her after living in over 10 homes the last couple of weeks. She states since she has returned to her house the patient refuses to eat, take her medications. Patient has been found wandering around the neighborhood, knocking on doors and frequently gets lost. Today while driving the patient home she attempted to jump out of the car. The granddaughter slammed on the brakes and was able to get her safely out of the car and then the patient ran into a [employer] and started yelling. Granddaughter is at a loss of how to help the patient at this time. She states that she has tried to place the patient in operational assistant living but because the patient will not take her medications they tell her that she is not a candidate. Patient's only complaint is mouth pain. She is scheduled for total mouth tooth extraction but again because she is not taking her antibiotics she cannot have this procedure done. TRAVEL OUTSIDE OF THE [place] IN LAST 30 DAYS: No - HPI Onset: Just prior to arrival Onset/Duration: Constant, Persistent, Worse Severity: Mild Associated symptoms: None Exacerbated by: Denies Relieved by: Denies Similar symptoms previously: Yes Recently seen / treated by doctor: Yes - Related Data Allergies/Adverse Reactions: No Known Allergies Allergy (Verified 11/17/17 18:55) Past Medical History - General Information source: Patient, Relative, [facility] Records Cannot obtain history due to: Dementia - Social History Smoking Status: Never Smoker Chew tobacco use (# tins/day): No Frequency of alcohol use: None Drug Abuse: None Lives with: Family Family History: Reviewed & Not Pertinent Patient has suicidal ideation: No Patient has homicidal ideation: No - Past Medical History Cardiac Medical History: Reports: Hx Hypercholesterolemia, Hx Hypertension Pulmonary Medical History: Reports: Hx Asthma Endocrine Medical History: Reports: Hx Diabetes Mellitus Type 1 - on insulin, Hx Diabetes Mellitus Type 2 Renal/ Medical History: Denies: Hx Peritoneal Dialysis GI Medical History: Reports: Hx Gastroesophageal Reflux Disease, Hx Hepatitis Psychiatric Medical History: Reports: Hx Depression Infectious Medical History: Reports: Hx Hepatitis Past Surgical History: Reports: Hx Abdominal Surgery - Per patient. - Immunizations Hx Diphtheria, Pertussis, Tetanus Vaccination: No Review of Systems - Review of Systems Constitutional: Other - Decreased appetite. Refusal to eat or take medication. , Weight loss. denies: Fever EENT: Mouth pain Cardiovascular: denies: Chest pain Respiratory: denies: Short of breath Gastrointestinal: Nausea Genitourinary: denies: Flank pain Female Genitourinary: No symptoms reported Musculoskeletal: Back pain Skin: denies: Rash Hematologic/Lymphatic: denies: Easy bruising Neurological/Psychological: Confusion, Dementia. denies: Homicidal ideation, Lost consciousness, Headaches -: Yes All other systems reviewed and negative Physical Exam - Vital signs Vitals: Temp Pulse Resp BP Pulse Ox 98.0 F 95 20 152/82 H 100 11/17/17 19:01 11/17/17 19:01 11/17/17 19:01 11/17/17 19:01 11/17/17 19:01 Interpretation: Hypertensive. No: Hypoxic, Febrile - Notes Notes: PHYSICAL EXAMINATION: GENERAL: Well-appearing, well-nourished and in no acute distress. HEAD: Atraumatic, normocephalic. EYES: Pupils equal round and reactive to light, extraocular movements intact, conjunctiva are normal. ENT: Nares patent, oropharynx clear without exudates. Moist mucous membranes. No normal dentition. No dental abscess. Multiple dental fractures. NECK: Normal range of motion, supple without lymphadenopathy LUNGS: Breath sounds clear to auscultation bilaterally and equal. No wheezes rales or rhonchi. HEART: Regular rate and rhythm without murmurs ABDOMEN: Soft, nontender, nondistended abdomen. No guarding, no rebound. No masses appreciated. Female : Stage I sacral decubitus Musculoskeletal: Normal range of motion, no pitting or edema. No cyanosis. NEUROLOGICAL: Cranial nerves grossly intact. Normal speech, normal gait. Normal sensory, motor exams PSYCH: Normal mood, normal affect. SKIN: Warm, Dry, normal turgor, no rashes or lesions noted. Course - Re-evaluation Re-evalutation: Laboratory 11/17/17 11/17/1718 19:50 19:50 20:50 WBC 6.2 RBC 3.82 Hgb 11.4 L Hct 34.6 L MCV 90 MCH 29.9 MCHC 33.0 RDW 13.4 Plt Count 253 Seg Neutrophils % 42.0 Lymphocytes % 42.0 Monocytes % 14.5 H Eosinophils % 0.4 Basophils % 1.1 Absolute Neutrophils 2.6 Absolute Lymphocytes 2.6 Absolute Monocytes 0.9 Absolute Eosinophils 0.0 Absolute Basophils 0.1 Sodium Potassium Chloride Carbon Dioxide Anion Gap BUN Creatinine Est GFR ( Amer) Est GFR (Non-Af Amer) Glucose Calcium Total Bilirubin Direct Bilirubin Neonat Total Bilirubin Neonat Direct Bilirubin Neonat Indirect Bili AST ALT Alkaline Phosphatase Total Protein Albumin Urine Color YELLOW Urine Appearance SLIGHTLY-CLOUDY Urine pH 8.0 Ur Specific Mcnary 1.027 Urine Protein >=500 H Urine Glucose (UA) >=500 H Urine Ketones NEGATIVE Urine Blood NEGATIVE Urine Nitrite NEGATIVE Urine Bilirubin NEGATIVE Urine Urobilinogen 2.0 H Ur Leukocyte Esterase NEGATIVE Urine WBC (Auto) 2 Urine RBC (Auto) 1 U Hyaline Cast (Auto) 1 Squamous Epi Cells Auto 1 Urine Mucus (Auto) RARE Urine Ascorbic Acid 40 H Salicylates Urine Opiates Screen NEGATIVE Urine Methadone Screen NEGATIVE Acetaminophen Ur Barbiturates Screen NEGATIVE Ur Phencyclidine Scrn NEGATIVE Ur Amphetamines Screen NEGATIVE U Benzodiazepines Scrn NEGATIVE Urine Cocaine Screen NEGATIVE U Marijuana (THC) Screen NEGATIVE Serum Alcohol 11/17/17 20:50 WBC RBC Hgb Hct MCV MCH MCHC RDW Plt Count Seg Neutrophils % Lymphocytes % Monocytes % Eosinophils % Basophils % Absolute Neutrophils Absolute Lymphocytes Absolute Monocytes Absolute Eosinophils Absolute Basophils Sodium 140.3 Potassium 4.1 Chloride 100 Carbon Dioxide 33 H Anion Gap 7 BUN 21 H Creatinine 0.45 L Est GFR ( Amer) > 60 Est GFR (Non-Af Amer) > 60 Glucose 202 H Calcium 9.0 Total Bilirubin 0.5 Direct Bilirubin 0.5 H Neonat Total Bilirubin Not Reportable Neonat Direct Bilirubin Not Reportable Neonat Indirect Bili Not Reportable AST 74 H ALT 38 Alkaline Phosphatase 319 H Total Protein 7.5 Albumin 3.0 L Urine Color Urine Appearance Urine pH Ur Specific Mcnary Urine Protein Urine Glucose (UA) Urine Ketones Urine Blood Urine Nitrite Urine Bilirubin Urine Urobilinogen Ur Leukocyte Esterase Urine WBC (Auto) Urine RBC (Auto) U Hyaline Cast (Auto) Squamous Epi Cells Auto Urine Mucus (Auto) Urine Ascorbic Acid Salicylates < 1.0 L Urine Opiates Screen Urine Methadone Screen Acetaminophen < 10 L Ur Barbiturates Screen Ur Phencyclidine Scrn Ur Amphetamines Screen U Benzodiazepines Scrn Urine Cocaine Screen U Marijuana (THC) Screen Serum Alcohol < 10 11/17/17 20:27 IVC initiated 11/18/17 03:28 67-year-old female with hepatitis C, dementia, hyperlipidemia, hypertension, type 1 diabetes presents via private vehicle with her granddaughter after increased aggressive behavior, confusion. Granddaughter of the patient is at the bedside and provides the majority of the history. She states that the patient recently came back to live with her after living in over 10 homes the last couple of weeks. She states since she has returned to her house the patient refuses to eat, take her medications. Patient has been found wandering around the neighborhood, knocking on doors and frequently gets lost. Today while driving the patient home she attempted to jump out of the car. The granddaughter slammed on the brakes and was able to get her safely out of the car and then the patient ran into a [employer] and started yelling. Granddaughter is at a loss of how to help the patient at this time. - Vital Signs Vital signs: Temp Pulse Resp BP Pulse Ox 98.0 F 95 20 152/82 H 100 11/17/17 19:01 11/17/17 19:01 11/17/17 19:01 11/17/17 19:01 11/17/17 19:01 - Laboratory Result Diagrams: 11/17/17 20:50 11/17/17 20:50 Laboratory results interpreted by me: 11/17/17 11/17/17 11/17/17 19:50 20:50 20:50 Hgb 11.4 L Hct 34.6 L Monocytes % 14.5 H Carbon Dioxide 33 H BUN 21 H Creatinine 0.45 L Glucose 202 H Direct Bilirubin 0.5 H AST 74 H Alkaline Phosphatase 319 H Albumin 3.0 L Urine Protein >=500 H Urine Glucose (UA) >=500 H Urine Urobilinogen 2.0 H Urine Ascorbic Acid 40 H Salicylates < 1.0 L Acetaminophen < 10 L Discharge - Discharge Clinical Impression: Hyperglycemia due to type 1 diabetes mellitus, Pain, dental Decubitus skin ulcer Qualifiers: Pressure injury location: sacral region Pressure injury stage: stage 1 Qualified Code(s): L89.151 - Pressure ulcer of sacral region, stage 1 Dementia Qualifiers: Dementia type: unspecified type Dementia behavioral disturbance: with behavioral disturbance Qualified Code(s): F03.91 - Unspecified dementia with behavioral disturbance Condition: Good Referrals: NAE DE LA FUENTE MD [Primary Care Provider] - Follow up as needed
[2017-11-17 20:54] LABS: APPEARANCE,URINE SLIGHTLY-CLOUDY; BILIRUBIN,URINE NEGATIVE (NEGATIVE); COLOR,URINE YELLOW; GLUCOSE, URINE >=500 mg/dL (NEGATIVE); KETONES,URINE NEGATIVE (NEGATIVE); LEUKOCYTE ESTERASE,URINE NEGATIVE (NEGATIVE); NITRITE,URINE NEGATIVE (NEGATIVE); PROTEIN,URINE >=500 mg/dL (NEGATIVE); URINE SPECIFIC GRAVITY 1.027
[2017-11-17 21:00] LABS: URINE AMPHETAMINES SCREEN NEGATIVE; URINE BARBITURATES SCREEN NEGATIVE; URINE BENZODIAZEPINES SCREEN NEGATIVE; URINE COCAINE SCREEN NEGATIVE; URINE MARIJUANA (THC) SCREEN NEGATIVE; URINE METHADONE SCREEN NEGATIVE; URINE PHENCYCLIDINE SCREEN NEGATIVE
[2017-11-17 21:31] LABS: ALANINE AMINOTRANSFERASE 38 U/L (9-52); ALKALINE PHOSPHATASE 319 U/L (38-126); ANION GAP 7 (5-19); ASPARTATE AMINO TRANSFERASE 74 U/L (14-36); BILIRUBIN,DIRECT 0.5 mg/dL (0.0-0.4); BILIRUBIN,TOTAL 0.5 mg/dL (0.2-1.3); BLOOD UREA NITROGEN 21 mg/dL (7-20); CARBON DIOXIDE 33 mmol/L (22-30); CHLORIDE 100 mmol/L (98-107); GLUCOSE 202 mg/dL (75-110); POTASSIUM 4.1 mmol/L (3.6-5.0); SODIUM 140.3 mmol/L (137-145); TOTAL PROTEIN 7.5 g/dL (6.3-8.2)
[2017-11-17 21:37] LABS: ACETAMINOPHEN < 10 ug/mL (10-30); ALCOHOL < 10 mg/dL (NONE DETECTED); SALICYLATE < 1.0 mg/dL (2.0-20.0)
[2017-11-17 21:43] LABS: ABSOLUTE BASOPHILS # (AUTO) 0.1 10^3/uL (0.0-0.2); ABSOLUTE LYMPHOCYTES (AUTO) 2.6 10^3/uL (0.5-4.7); ABSOLUTE MONOCYTES (AUTO) 0.9 10^3/uL (0.1-1.4); ABSOLUTE NEUT (AUTO) 2.6 10^3/uL (1.7-8.2); BASOPHILS % (AUTO) 1.1 % (0-2); EOSINOPHILS % (AUTO) 0.4 % (0-6); HEMATOCRIT 34.6 % (36.0-47.0); HEMOGLOBIN 11.4 g/dL (12.0-15.5); MEAN CORPUSCULAR HEMOGLOBIN 29.9 pg (27.0-33.4); MEAN CORPUSCULAR VOLUME 90 fl (80-97); MONOCYTES % (AUTO) 14.5 % (3-13); PLATELET COUNT 253 10^3/uL (150-450); RED BLOOD COUNT 3.82 10^6/uL (3.72-5.28); RED CELL DISTRIBUTION WIDTH 13.4 % (11.5-14.0); TOTAL CELLS COUNTED % (AUTO) 100 %; WHITE BLOOD COUNT 6.2 10^3/uL (4.0-10.5)
--- NOTE | 2017-11-17 21:50 | EKG REPORT ---
SEVERITY:- NORMAL ECG - SINUS RHYTHM : Confirmed by: Mago Lucas MD 17-Nov-2017 21:50:23
--- NOTE | 2017-11-18 10:32 | ER Document Report ---
Doctor's Note Notes: 11/18/17 10:28 Rounds: Chart reviewed and patient interviewed. Patient's main complaint is of her bad teeth saying that she has abscesses of her gums. She says that she has been to a dentist and is getting Medicaid approval to have all of her teeth removed. Patient was brought in here because of increasing aggressive behavior , trying to jump out of a moving vehicle couple times a day, more aggressive behavior, refusing to take her medications including her insulin. She has a history of dementia. Vital signs are all essentially normal. Lab studies are all essentially unremarkable, but noted her blood sugar 202. At the request of mental health, I am ordering a CT the patient's brain because she has not had one for several years and has developed the diagnosis of dementia without that being checked. Patient appears to have almost none of her teeth with many of her teeth either eroded all 4 broken off at the gum. She has several areas which the gingiva is slightly swollen and tender to the touch, but I do not feel any fluctuance or see any swollen areas around any of the teeth that suggest abscess presents. She certainly has gingivitis and terrible dental decay and dental hygiene. I am also going to start the patient on some penicillin. She says that she cannot swallow solid food or medication pills because she has bad acid reflux and hernia. Patient appears to be medically stable for transfer or discharge. Doug Prajapati MD
[2017-11-18] MEDS: HYDROCOD/ACETAMIN 7.5-325 MG/15 ML ORAL SOLN UDCUP PO PRN (10:35)
--- NOTE | 2017-11-18 11:27 | RADIOLOGY REPORT (SQ) ---
EXAM DESCRIPTION: CT HEAD WITHOUT COMPLETED DATE/TIME: 11/18/2017 11:07 am REASON FOR STUDY: Diagnosed as dementia, altered mental status COMPARISON: None. TECHNIQUE: Axial images acquired through the brain without intravenous contrast. Images reviewed wi th bone, brain and subdural windows. Additional sagittal and coronal reconstructions were generated. Images stored on PACS. All CT scanners at this facility use dose modulation, iterative reconstruction, and/or weight based d osing when appropriate to reduce radiation dose to as low as reasonably achievable (ALARA). [facility]: Dose Right [facility]: CareDose [facility]: Dose Right [facility]: Teradose 4D [facility]: [employer] RADIATION DOSE: CT Rad equipment meets quality standard of care and radiation dose reduction techniq ues were employed. CTDIvol: 53.2 mGy. DLP: 911 mGy-cm. mGy. LIMITATIONS: None. FINDINGS: VENTRICLES: Normal size and contour. CEREBRUM: No masses. No hemorrhage. No midline shift. No evidence for acute infarction. Normal gra y/white matter differentiation. No areas of low density in the white matter. CEREBELLUM: No masses. No hemorrhage. No alteration of density. No evidence for acute infarction. EXTRAAXIAL SPACES: No fluid collections. No masses. ORBITS AND GLOBE: No intra- or extraconal masses. Normal contour of globe without masses. CALVARIUM: No fracture. PARANASAL SINUSES: No fluid or mucosal thickening. SOFT TISSUES: No mass or hematoma. OTHER: No other significant finding. IMPRESSION: NORMAL BRAIN CT WITHOUT CONTRAST. EVIDENCE OF ACUTE STROKE: NO. COMMENT: Quality ID # [id number]: Final reports with documentation of one or more dose reduction techniques (e.g., Automated exposure control, adjustment of the mA and/or kV according to patient size, use of iterative reconstruction technique) TECHNICAL DOCUMENTATION: JOB ID: [id number] [employer]- All Rights Reserved Reading location - IP/workstation name: [email or web address]
--- NOTE | 2017-11-18 12:00 | PSYCHOLOGICAL NOTE ---
Psych Note - Psych Note Psych Note: Reason for Consult: Medication recommendations 67-year-old female with hepatitis C, dementia, hyperlipidemia, hypertension, type 1 diabetes presents via private vehicle with her granddaughter after increased aggressive behavior, confusion. Granddaughter of the patient is at the bedside and provides the majority of the history. She states that the patient recently came back to live with her after living in over 10 homes the last couple of weeks. She states since she has returned to her house the patient refuses to eat, take her medications. Patient has been found wandering around the neighborhood, knocking on doors and frequently gets lost. Today while driving the patient home she attempted to jump out of the car. The granddaughter slammed on the brakes and was able to get her safely out of the car and then the patient ran into a [id number] and started yelling. Granddaughter is at a loss of how to help the patient at this time. She states that she has tried to place the patient in agency sales management assistant living but because the patient will not take her medications they tell her that she is not a candidate. Medication recommendations per [facility] was contracted psychiatrist Dr. Evans BILLY are as follows 1. Keppra 500 mg twice daily 2. BuSpar 10 mg twice daily 799.59 (R41.9) unspecified neurocognitive disorder per history Impression\plan: Patient is cleared from acute psychiatric services. Patient is diagnosed with dementia and is recommended to follow-up with neurology for continued care. Medication recommendations have been provided. Please re- consult with any new concerns. Dr. Arambula was consulted on the care and management of this patient; attending physician is in agreement with recommendations and disposition.
[2017-11-18] MEDS: PENICILLIN V POTASSIUM 250 MG/5 ML SUSP 100 ML PO SCH ×3 (13:49→23:54)
[2017-11-18] MEDS ORDERED: LEVETIRACETAM 500 MG TABLET PO ONE (14:00)
[2017-11-18] MEDS ORDERED: BUSPIRONE HCL 10 MG TABLET PO ONE (14:00)
[2017-11-18] MEDS: BUSPIRONE HCL 10 MG TABLET PO SCH (18:52)
[2017-11-18] MEDS: LEVETIRACETAM 500 MG TABLET PO SCH (18:53)
--- NOTE | 2017-11-19 10:17 | ER Document Report ---
Doctor's Note Notes: 11/19/17 10:16 Patient's records were reviewed. Today she has eaten her breakfast, smiling and pleasant. She does complain about her teeth, and states there are bumps on her back that are itching. She does appear to be quite demented, but states she is agreeable to taking all her medications so that she can return home. 11/19/17 17:20 In further review of her records, I have found that she does not appear to have been given any insulin since she arrived 2 days ago. There have been no Accu- Cheks done since she arrived 2 days ago. The records show the patient filled a prescription for Levemir insulin 35 units nightly on 11/14/2017. She is also seen here in the emergency room on 11/14/2017 and was given a prescription for Lantus 35 units nightly. For now I will order an Accu-Chek and we will treat her using a sliding scale of regular insulin until she is discharged. At this time the plan is for the patient remain here on social hold for 1 more day and she will be discharged with her daughter in the morning. She will have some medication adjustments made prior to being discharged tomorrow morning.
[2017-11-19] MEDS: BUSPIRONE HCL 10 MG TABLET PO SCH (10:22)
[2017-11-19] MEDS: LEVETIRACETAM 500 MG TABLET PO SCH (10:22)
[2017-11-19] MEDS: PENICILLIN V POTASSIUM 250 MG/5 ML SUSP 100 ML PO SCH ×2 (10:22→14:45)
[2017-11-19] MEDS ORDERED: DEXTROSE 40% GEL 15 GM TUBE PO PRN ×2 (17:27)
[2017-11-19] MEDS ORDERED: GLUCAGON,HUMAN RECOMB 1 MG INJ IM PRN (17:27)
[2017-11-19] MEDS ORDERED: DEXTROSE 50%-WATER 25 GM/50 ML DISP.SYRIN IV PRN ×2 (17:27)
[2017-11-19] MEDS: INSULIN REG, HUMAN 100 UNIT/ML 3 ML VIAL (PYX) SUBCUT PRN (18:08)
[2017-11-19] MEDS ORDERED: INSULIN DETEMIR 100 UNIT/ML 3 ML PEN SUBCUT SCH (22:00)
[2017-11-19] MEDS ORDERED: DIPHENHYDRAMINE HCL 25 MG CAPSULE ONE (23:21)
[2017-11-20] MEDS: HYDROCOD/ACETAMIN 7.5-325 MG/15 ML ORAL SOLN UDCUP PO PRN ×2 (00:26→04:46)
[2017-11-20] MEDS ORDERED: PENICILLIN V POTASSIUM 250 MG/5 ML SUSP 100 ML ONE (03:45)
[2017-11-20] MEDS: BUSPIRONE HCL 10 MG TABLET PO SCH (04:20)
[2017-11-20] MEDS: PENICILLIN V POTASSIUM 250 MG/5 ML SUSP 100 ML PO SCH (04:22)
[2017-11-20] MEDS ORDERED: DIPHENHYDRAMINE HCL 25 MG CAPSULE PO ONE (04:28)
[2017-11-20] MEDS: INSULIN REG, HUMAN 100 UNIT/ML 3 ML VIAL (PYX) SUBCUT PRN (09:37)
[2017-11-20 10:29] VITALS: BP 168/81
== END 2017-11-20 10:29 | disposition home or self-care (01) ==
LOC: ER 18:54
DX: K08.9 Disorder of teeth and supporting structures, unspecified (principal); F03.91 Unspecified dementia, unspecified severity, with behavioral disturbance; R41.82 Altered mental status, unspecified; L89.151 Pressure ulcer of sacral region, stage 1; E11.65 Type 2 diabetes mellitus with hyperglycemia; E78.00 Pure hypercholesterolemia, unspecified; I10 Essential (primary) hypertension; Z79.4 Long term (current) use of insulin
CPT/HCPCS: 93005; 99285; 36415; 82962; 80307 ×4; 85025; 80053; 81001; 70450; 93010; A9270 ×9; J3490; J1815

== ENCOUNTER 2017-11-23 13:19 | Emergency (ER) | payer MEDICARE, MEDICAID ==
--- NOTE | 2017-11-23 13:54 | ER Document Report ---
ED Medical Screen (RME) - General Chief Complaint: Other Stated Complaint: POSSIBLE ABSCESS Time Seen by Provider: 11/23/17 13:45 Notes: RAPID MEDICAL EVALUATION DISCLOSURE I have seen this patient as part of a Rapid Medical Evaluation and, if applicable, placed any initially appropriate orders. The patient will be seen and fully evaluated, including a full history and physical exam, by a provider ( in Main ED or Fast Track) when a room becomes available. 67-year-old female brought here by her daughter for multiple complaints. Complains of ongoing chronic abdominal pain for the past 3 months due to "a hernia". Also complains of elevated blood sugars and states this morning it was around 300. Daughter states patient does not take any of her medications and she is currently attempting to place the patient in a half-way. She reports that Dr. De La Fuente told her to come here for evaluation regarding possible admission. EXAM CTAB RRR There is mild to moderate left lateral chest wall TTP but no crepitus Mild diffuse abdominal TTP TRAVEL OUTSIDE OF THE [place] IN LAST 30 DAYS: No - Related Data Allergies/Adverse Reactions: No Known Allergies Allergy (Verified 11/23/17 13:22) Past Medical History - Social History Family history: None - Past Medical History Cardiac Medical History: Reports: Hx Hypercholesterolemia, Hx Hypertension Pulmonary Medical History: Reports: Hx Asthma Endocrine Medical History: Reports: Hx Diabetes Mellitus Type 1 - on insulin, Hx Diabetes Mellitus Type 2 Renal/ Medical History: Denies: Hx Peritoneal Dialysis GI Medical History: Reports: Hx Gastroesophageal Reflux Disease, Hx Hepatitis Psychiatric Medical History: Reports: Hx Depression Infectious Medical History: Reports: Hx Hepatitis Past Surgical History: Reports: Hx Abdominal Surgery - Per patient. - Immunizations Hx Diphtheria, Pertussis, Tetanus Vaccination: No Physical Exam - Vital signs Vitals: Temp Pulse Resp BP Pulse Ox 98.7 F 75 16 173/86 H 100 11/23/17 13:34 11/23/17 13:34 11/23/17 13:34 11/23/17 13:34 11/23/17 13:34 Course - Vital Signs Vital signs: Temp Pulse Resp BP Pulse Ox 98.7 F 75 16 173/86 H 100 11/23/17 13:34 11/23/17 13:34 11/23/17 13:34 11/23/17 13:34 11/23/17 13:34 Doctor's Discharge - Discharge Referrals: NAE DE LA FUENTE MD [Primary Care Provider] - Follow up as needed
[2017-11-23 14:45] LABS: ABSOLUTE BASOPHILS # (AUTO) 0.1 10^3/uL (0.0-0.2); ABSOLUTE LYMPHOCYTES (AUTO) 2.1 10^3/uL (0.5-4.7); ABSOLUTE MONOCYTES (AUTO) 0.6 10^3/uL (0.1-1.4); ABSOLUTE NEUT (AUTO) 5.5 10^3/uL (1.7-8.2); BASOPHILS % (AUTO) 0.7 % (0-2); EOSINOPHILS % (AUTO) 0.4 % (0-6); HEMATOCRIT 42.6 % (36.0-47.0); LYMPHOCYTES % (AUTO) 25.6 % (13-45); MEAN CORPUSCULAR HGB CONC 32.8 g/dL (32.0-36.0); MEAN CORPUSCULAR VOLUME 91 fl (80-97); MONOCYTES % (AUTO) 6.8 % (3-13); PLATELET COUNT 288 10^3/uL (150-450); RED BLOOD COUNT 4.66 10^6/uL (3.72-5.28); RED CELL DISTRIBUTION WIDTH 13.8 % (11.5-14.0); SEGMENTED NEUTROPHILS % (AUTO) 66.5 % (42-78); TOTAL CELLS COUNTED % (AUTO) 100 %; WHITE BLOOD COUNT 8.3 10^3/uL (4.0-10.5)
[2017-11-23 14:51] LABS: VENOUS BLOOD BASE EXCESS 3.9 mmol/L; VENOUS BLOOD HCO3 31.9 mmol/L (20-32); VENOUS BLOOD PCO2 63.8 mmHg (35-63); VENOUS BLOOD PH 7.32 (7.30-7.42)
--- NOTE | 2017-11-23 15:01 | RADIOLOGY REPORT (SQ) ---
EXAM DESCRIPTION: CHEST 2 VIEWS COMPLETED DATE/TIME: 11/23/2017 2:54 pm REASON FOR STUDY: L lateral chest pain; eval rib fx? pneumonia? COMPARISON: Chest film 08/20/2013, 07/28/2014, 06/02/2017 Next EXAM PARAMETERS: NUMBER OF VIEWS: two views TECHNIQUE: Digital Frontal and Lateral radiographic views of the chest acquired. RADIATION DOSE: NA LIMITATIONS: none FINDINGS: LUNGS AND PLEURA: No opacities, masses or pneumothorax. No pleural effusion. MEDIASTINUM AND HILAR STRUCTURES: No masses or contour abnormalities. HEART AND VASCULAR STRUCTURES: Heart normal size. No evidence for failure. BONES: No acute findings. HARDWARE: None in the chest. OTHER: No other significant finding. IMPRESSION: NO ACUTE RADIOGRAPHIC FINDING IN THE CHEST. TECHNICAL DOCUMENTATION: JOB ID: [id number] [employer]- All Rights Reserved Reading location - IP/workstation name: [email or web address]
[2017-11-23 15:11] LABS: ALANINE AMINOTRANSFERASE 63 U/L (9-52); ALKALINE PHOSPHATASE 378 U/L (38-126); ANION GAP 14 (5-19); ASPARTATE AMINO TRANSFERASE 80 U/L (14-36); BILIRUBIN,DIRECT 0.5 mg/dL (0.0-0.4); BILIRUBIN,TOTAL 0.8 mg/dL (0.2-1.3); BLOOD UREA NITROGEN 22 mg/dL (7-20); CALCIUM 10.5 mg/dL (8.4-10.2); CARBON DIOXIDE 30 mmol/L (22-30); CHLORIDE 96 mmol/L (98-107); GLUCOSE 279 mg/dL (75-110); LIPASE 146.5 U/L (23-300); TOTAL PROTEIN 9.7 g/dL (6.3-8.2)
[2017-11-23 16:25] LABS: APPEARANCE,URINE SLIGHTLY-CLOUDY; BILIRUBIN,URINE NEGATIVE (NEGATIVE); COLOR,URINE AMBER; GLUCOSE, URINE >=500 mg/dL (NEGATIVE); KETONES,URINE NEGATIVE (NEGATIVE); LEUKOCYTE ESTERASE,URINE NEGATIVE (NEGATIVE); NITRITE,URINE NEGATIVE (NEGATIVE); PROTEIN,URINE >=500 mg/dL (NEGATIVE); URINE SPECIFIC GRAVITY 1.018
--- NOTE | 2017-11-23 18:05 | ER Document Report ---
ED General - General Mode of Arrival: Ambulatory Information source: Patient, Relative TRAVEL OUTSIDE OF THE [place] IN LAST 30 DAYS: No <SIMBA DUNN - Last Filed: 11/24/17 00:42> <DURAN BALL - Last Filed: 11/24/17 00:44> - General Chief Complaint: Other Stated Complaint: POSSIBLE ABSCESS Time Seen by Provider: 11/23/17 13:45 Notes: Patient is a 67-year-old female with hepatitis C, dementia, hyperlipidemia, hypertension, type 1 diabetes presents to the emergency department accompanied by granddaughter complaining of multiple symptoms including an abscess, abdominal hernia, vomiting, aggressive behavior and seeking admission. Granddaughter states the patient has not been taking her prescribed antibiotics for a mouth abscess further stating she has a scheduled total tooth removal tomorrow. She further states the patient has had an increase in aggressive behavior and confusion and states the patient will not eat. She states her PCP , Dr. De La Fuente recommended the patient present to the emergency department for evaluation for admission so the patient could get her medications and be signed off to go to an assisted living facility due to the patient not being eligible. Patient denies any fevers. Of significance, patient was seen in the emergency department on 11/17/2017 for aggressive behavior subsequently prescribed BuSpar and Keppra which she refuses to take. Granddaughter denies any acute behavioral changes today. Patient was seen at [facility] where she was not a candidate for admission. (SIMBA DUNN) - Related Data Allergies/Adverse Reactions: No Known Allergies Allergy (Verified 11/23/17 13:22) Past Medical History - General Information source: Patient - Social History Smoking Status: Unknown if Ever Smoked Family History: Reviewed & Not Pertinent Patient has suicidal ideation: No Patient has homicidal ideation: No - Past Medical History Cardiac Medical History: Reports: Hx Hypercholesterolemia, Hx Hypertension Pulmonary Medical History: Reports: Hx Asthma Endocrine Medical History: Reports: Hx Diabetes Mellitus Type 1 - on insulin GI Medical History: Reports: Hx Gastroesophageal Reflux Disease, Hx Hepatitis Psychiatric Medical History: Reports: Hx Depression Infectious Medical History: Reports: Hx Hepatitis Past Surgical History: Reports: Hx Abdominal Surgery - Per patient. - Immunizations Hx Diphtheria, Pertussis, Tetanus Vaccination: No <SIMBA DUNN - Last Filed: 11/24/17 00:42> Review of Systems - Review of Systems Constitutional: No symptoms reported EENT: See HPI Cardiovascular: No symptoms reported Respiratory: No symptoms reported Gastrointestinal: See HPI, Vomiting - chronic Genitourinary: No symptoms reported Female Genitourinary: No symptoms reported Musculoskeletal: See HPI Skin: No symptoms reported Hematologic/Lymphatic: No symptoms reported Neurological/Psychological: See HPI, Confusion -: Yes All other systems reviewed and negative <SHAUNSIMBA - Last Filed: 11/24/17 00:42> Physical Exam <SIMBA DUNN - Last Filed: 11/24/17 00:42> <POONAMGHAZALDURAN - Last Filed: 11/24/17 00:44> - Vital signs Vitals: Temp Pulse Resp BP Pulse Ox 98.7 F 75 16 173/86 H 100 11/23/17 13:34 11/23/17 13:34 11/23/17 13:34 11/23/17 13:34 11/23/17 13:34 - Notes Notes: GENERAL: Alert, interacts well. No acute distress. HEAD: Normocephalic, atraumatic. EYES: Pupils equal, round, and reactive to light. Extraocular movements intact. ENT: Oral mucosa moist, tongue midline. Swelling around gumline around tooth 7th and 8th no active draining. Teeth broken off at gumline, poor oral hygiene. NECK: Full range of motion. Supple. Trachea midline. LUNGS: Clear to auscultation bilaterally, no wheezes, rales, or rhonchi. No respiratory distress. HEART: Regular rate and rhythm. No murmurs, gallops, or rubs. ABDOMEN: Soft, Midline incisional hernia just below the umbilicus which is tender to palpation, not incarcerated. Non-distended. Bowel sounds present in all 4 quadrants. EXTREMITIES: Moves all 4 extremities spontaneously. No edema, radial and dorsalis pedis pulses 2/4 bilaterally. No cyanosis. NEUROLOGICAL: Alert and oriented x3. Normal speech. PSYCH: Normal affect, normal mood. SKIN: Warm, dry, normal turgor. No rashes or lesions noted. (SIMBA DUNN) Course - Laboratory Result Diagrams: 11/23/17 14:35 11/23/17 14:35 <SIMBA DUNN - Last Filed: 11/24/17 00:42> - Laboratory Result Diagrams: 11/23/17 14:35 11/23/17 14:35 <DURAN BALL - Last Filed: 11/24/17 00:44> - Re-evaluation Re-evalutation: 11/23/17 18:19 CBC unremarkable, venous blood gas shows somewhat elevated CO2 at 63.8 but the patient does not have any somnolence or altered mental status associated with this, doubt she is truly retaining CO2, feel this is likely a combination of baseline and effects of a venous blood gas, CMP shows no evidence of renal failure, BUN somewhat elevated 22 and creatinine 0.49, GFR is normal, glucose elevated at 279 consistent with her diabetic status and refusing to take medications, LFTs elevated consistent with history of hepatitis, AST is 80, ALT 63, alkaline phosphatase is 378. No evidence of malnutrition particularly considering her total protein is 9.7 and her albumin is 4.0. Urinalysis does not support dehydration with specific gravity of 1.018 and no ketones. I discussed this patient with Dr. De La Fuente who agrees this patient does not meet admission criteria. Though the daughter continues to speak of multiple behavioral disturbances the patient does not have any evidence of behavioral disturbances here. The patient is oriented to person place and time, describes the president as the man with a funny-looking hair. Patient does not have any evidence of abscess in her mouth, there is some mild erythema to the gumline, granddaughter states that she refuses to eat or take any medications however the patient is asking for food. Patient will be given a shot of IM Rocephin to provide more prolonged antibiotic coverage since she will not take her oral antibiotics that she has at home. She has a dentist appointment with the [facility] dentist tomorrow morning. I see no indication for admission at this time. No indication for further psychiatric workup. Recommend that they continue to follow-up with Dr. De La Fuente as an outpatient and that grand daughter can continue to pursue possible placement in an assisted living or memory care facility. ( DURAN BALL) - Vital Signs Vital signs: Temp Pulse Resp BP Pulse Ox 99.6 F 89 18 162/79 H 100 11/23/17 20:18 11/23/17 20:18 11/23/17 20:18 11/23/17 20:18 11/23/17 20:18 - Laboratory Laboratory results interpreted by me: 11/23/17 11/23/17 11/23/17 14:35 14:35 16:11 VBG pCO2 63.8 H Chloride 96 L BUN 22 H Creatinine 0.49 L Glucose 279 H Calcium 10.5 H Direct Bilirubin 0.5 H AST 80 H ALT 63 H Alkaline Phosphatase 378 H Total Protein 9.7 H Urine Protein >=500 H Urine Glucose (UA) >=500 H Urine Urobilinogen 2.0 H Urine Ascorbic Acid 20 H Discharge <SIMBA DUNN - Last Filed: 11/24/17 00:42> <DURAN BALL - Last Filed: 11/24/17 00:44> - Discharge Clinical Impression: Gingivitis due to dental plaque Dementia Qualifiers: Dementia type: Alzheimer's disease Alzheimer's disease onset: early-onset Dementia behavioral disturbance: without behavioral disturbance Qualified Code(s ): G30.0 - Alzheimer's disease with early onset Hyperglycemia due to type 2 diabetes mellitus Qualifiers: Diabetes mellitus custodial insulin use: with custodial use Qualified Code(s): E11.65 - Type 2 diabetes mellitus with hyperglycemia Condition: Stable Disposition: HOME, SELF-CARE Additional Instructions: Today gave you an injection of Rocephin because her granddaughter states that she will not take your antibiotics by mouth. Please follow-up with the dentist tomorrow to see if he wishes you to continue having the Rocephin injections over the next 2 days. If he does want you to continue to get these please return to the emergency department where you can receive them as a nurse visit. I have written a order for this. Prescriptions: Ceftriaxone Sodium [Ceftriaxone] 500 mg IM DAILY #2 vial Referrals: NAE DE LA FUENTE MD [Primary Care Provider] - Follow up in 3-5 days Scribe Attestation: 11/24/17 00:44 I personally performed the services described in the documentation, reviewed and edited the documentation which was dictated to the scribe in my presence, and it accurately records my words and actions. (DURAN BALL) Scribe Documentation - Scribe Written by Scribe:: Keyana Drake, 11/23/2017 19:36 acting as scribe for :: Duarte <SIMBA DUNN - Last Filed: 11/24/17 00:42>
[2017-11-23] MEDS ORDERED: CEFTRIAXONE INJ 500 MG VIAL IM ONE (19:06)
[2017-11-23] MEDS ORDERED: LIDOCAINE 1% INJ-PF (10 MG/ML) 30 ML SDV INFIL ONE (19:06)
[2017-11-23 20:25] VITALS: BP 162/79
== END 2017-11-23 20:25 | disposition home or self-care (01) ==
LOC: ER 13:19
DX: K05.10 Chronic gingivitis, plaque induced (principal); G30.0 Alzheimer's disease with early onset; R11.10 Vomiting, unspecified; E10.65 Type 1 diabetes mellitus with hyperglycemia; Z79.4 Long term (current) use of insulin; E78.00 Pure hypercholesterolemia, unspecified; I10 Essential (primary) hypertension
CPT/HCPCS: 99283; 96372; 36415; 83690; 85025; 80053; 81001; 82803; 71046; J3490; J0696

== ENCOUNTER 2018-02-06 18:57 | Emergency (ER) | payer MEDICARE, MEDICAID ==
[2018-02-06] MEDS ORDERED: RINGERS SOLUTION,LACTATED 700 ML IV ONE (22:22)
--- NOTE | 2018-02-06 22:24 | ER Document Report ---
ED GI/ - General Chief Complaint: Constipation Stated Complaint: CONSTIPATION Time Seen by Provider: 02/06/18 21:29 Mode of Arrival: Wheelchair Information source: Patient, Friend Notes: Patient presents complaining of constipation. Patient had a very small bowel movement yesterday but her last normal bowel movement was 10 days ago. Patient has had decreased appetite. Patient's caregiver is at bedside and states that patient has not had hardly any oral fluids over the past 2 days because she does not like to drink water. Patient does complain of some abdominal pain but attributes this to cramping from her constipation. Patient without any fever or vomiting. Patient does complain of some rectal discomfort. TRAVEL OUTSIDE OF THE [place] IN LAST 30 DAYS: No - HPI Patient complains to provider of: Abdominal pain. No: Vomiting Onset: This afternoon Timing/Duration: Gradual Quality of pain: Cramping Pain Level: 1 Location: Other - Generalized abdomen Associated symptoms: Constipation, Loss of appetite. denies: Diarrhea, Dysuria , Fever, Nausea, Urinary hesitancy, Urinary frequency, Urinary retention, Vomiting Exacerbated by: Denies Relieved by: Denies Similar symptoms previously: Yes Recently seen / treated by doctor: No - Related Data Allergies/Adverse Reactions: No Known Allergies Allergy (Verified 02/06/18 18:58) Past Medical History - General Information source: Patient, Friend - Caregiver - Social History Smoking Status: Never Smoker Frequency of alcohol use: None Drug Abuse: None Lives with: Alone Family History: Reviewed & Not Pertinent - Past Medical History Cardiac Medical History: Reports: Hx Hypercholesterolemia, Hx Hypertension Pulmonary Medical History: Reports: Hx Asthma Endocrine Medical History: Reports: Hx Diabetes Mellitus Type 1 - on insulin, Hx Diabetes Mellitus Type 2 Renal/ Medical History: Denies: Hx Peritoneal Dialysis GI Medical History: Reports: Hx Gastroesophageal Reflux Disease, Hx Hepatitis Psychiatric Medical History: Reports: Hx Depression Infectious Medical History: Reports: Hx Hepatitis Past Surgical History: Reports: Hx Hysterectomy - Immunizations Hx Diphtheria, Pertussis, Tetanus Vaccination: No Review of Systems - Review of Systems Constitutional: No symptoms reported. denies: Fever EENT: No symptoms reported Cardiovascular: No symptoms reported Respiratory: No symptoms reported. denies: Cough Gastrointestinal: Abdominal pain, Constipation, Poor appetite, Poor fluid intake. denies: Diarrhea, Vomiting Genitourinary: No symptoms reported. denies: Dysuria Female Genitourinary: No symptoms reported Musculoskeletal: No symptoms reported. denies: Back pain Skin: No symptoms reported Hematologic/Lymphatic: No symptoms reported Neurological/Psychological: No symptoms reported Physical Exam - Vital signs Vitals: Temp Pulse Resp BP Pulse Ox 98.3 F 103 H 16 120/86 H 100 02/06/18 19:02 02/06/18 19:02 02/06/18 19:02 02/06/18 19:02 02/06/18 19:02 - General General appearance: Alert Notes: Cachectic - Respiratory Respiratory status: No respiratory distress Chest status: Nontender Breath sounds: Normal Chest palpation: Normal - Cardiovascular Rhythm: Regular Heart sounds: S1 appreciated, S2 appreciated - Abdominal Inspection: Normal Distension: No distension Bowel sounds: Normal Tenderness: Tender - Rectal Tenderness: No Hemorrhoids: None Notes: no fecal impaction - Back Back: Normal, Nontender. No: CVA tenderness - Extremities General upper extremity: Normal inspection, Normal ROM General lower extremity: Normal inspection, Normal ROM - Neurological Neuro grossly intact: Yes Chelsea Coma Scale Eye Opening: Spontaneous Beatrice Coma Scale Verbal: Oriented Beatrice Coma Scale Motor: Obeys Commands Chelsea Coma Scale Total: 15 - Skin Skin Temperature: Warm Skin Moisture: Dry Skin Color: Normal Course - Re-evaluation Re-evalutation: 02/07/18 01:45 Patient not retaining enema per RN. Patient with only small amount of stool in toilet. 02/07/18 02:34 RN states that patient is starting to have return from the remainder of the enema that was administered. 02/07/18 02:49 bedside report and handoff given to Maura Herrera BLOCK SAWYER. Patient's abdomen is soft , nontender. Patient with small amount of stool to bedside commode. Patient encouraged to continue to drink magnesium citrate - Vital Signs Vital signs: Temp Pulse Resp BP Pulse Ox 97.6 F 74 18 138/88 H 100 02/07/18 04:00 02/07/18 04:00 02/07/18 04:00 02/07/18 04:00 02/07/18 04:00 - Laboratory Result Diagrams: 02/06/18 23:50 02/06/18 23:50 Laboratory results interpreted by me: 02/06/18 02/06/18 02/07/18 23:50 23:50 01:09 Seg Neutrophils % 37.6 L Lymphocytes % 52.9 H Glucose 155 H Direct Bilirubin 0.8 H AST 70 H Alkaline Phosphatase 179 H Total Protein 8.4 H Urine Protein 100 H Urine Glucose (UA) >=500 H Urine Ketones TRACE H Urine Urobilinogen 4.0 H Labs- Entire Visit 02/06/18 02/06/18 02/07/18 23:50 23:50 01:09 WBC 5.9 RBC 4.70 Hgb 14.0 Hct 42.1 MCV 90 MCH 29.8 MCHC 33.3 RDW 13.0 Plt Count 235 Seg Neutrophils % 37.6 L Lymphocytes % 52.9 H Monocytes % 8.0 Eosinophils % 0.5 Basophils % 1.0 Absolute Neutrophils 2.2 Absolute Lymphocytes 3.1 Absolute Monocytes 0.5 Absolute Eosinophils 0.0 Absolute Basophils 0.1 Sodium 142.6 Potassium 3.9 Chloride 104 Carbon Dioxide 28 Anion Gap 11 BUN 20 Creatinine 0.75 Est GFR ( Amer) > 60 Est GFR (Non-Af Amer) > 60 Glucose 155 H Calcium 10.1 Total Bilirubin 1.0 Direct Bilirubin 0.8 H Neonat Total Bilirubin Not Reportable Neonat Direct Bilirubin Not Reportable Neonat Indirect Bili Not Reportable AST 70 H ALT 46 Alkaline Phosphatase 179 H Total Protein 8.4 H Albumin 3.7 Lipase 54.0 Urine Color YELLOW Urine Appearance CLOUDY Urine pH 6.0 Ur Specific [place] 1.015 Urine Protein 100 H Urine Glucose (UA) >=500 H Urine Ketones TRACE H Urine Blood NEGATIVE Urine Nitrite NEGATIVE Urine Bilirubin NEGATIVE Urine Urobilinogen 4.0 H Ur Leukocyte Esterase NEGATIVE Urine WBC (Auto) 0 Urine RBC (Auto) 1 U Hyaline Cast (Auto) 4 Squamous Epi Cells Auto 1 Urine Mucus (Auto) RARE Urine Ascorbic Acid NEGATIVE - Diagnostic Test Radiology reviewed: Image reviewed, Reports reviewed Discharge - Discharge Clinical Impression: Abdominal pain Qualifiers: Abdominal location: generalized Qualified Code(s): R10.84 - Generalized abdominal pain Constipation Qualifiers: Constipation type: unspecified constipation type Qualified Code(s): K59.00 - Constipation, unspecified Condition: Good Disposition: HOME, SELF-CARE Instructions: Abdominal Pain ([facility]), Constipation ([facility]) Additional Instructions: Return immediately for any new or worsening symptoms Followup with your primary care provider, call tomorrow to make a followup appointment Increase oral fluids to help stay hydrated Referrals: DEISY,BRYNN, PA-C [PHYSICIAN INSTRUMENTATION AND CONTROL TECHNICIAN] - Follow up tomorrow
--- NOTE | 2018-02-06 22:54 | RADIOLOGY REPORT (SQ) ---
EXAM DESCRIPTION: XR ABDOMEN 1 VIEW (KUB) COMPLETED DATE/TME: 02/06/2018 22:22 CLINICAL HISTORY: 68 years Female, constipation COMPARISON: None. NUMBER OF VIEWS/TECHNIQUE: 1 FINDINGS: Intestinal gas pattern is within normal limits. Colonic stool retention. Left paracentral pelvic clip. Mild osteoarthritis of bilateral hips. No suspicious calcification. Grossly intact skeletal structures. IMPRESSION: No acute findings.
[2018-02-06] MEDS ORDERED: MINERAL OIL 30 ML UDCUP PR ONE (23:25)
[2018-02-06 23:59] LABS: ABSOLUTE BASOPHILS # (AUTO) 0.1 10^3/uL (0.0-0.2); ABSOLUTE LYMPHOCYTES (AUTO) 3.1 10^3/uL (0.5-4.7); ABSOLUTE MONOCYTES (AUTO) 0.5 10^3/uL (0.1-1.4); ABSOLUTE NEUT (AUTO) 2.2 10^3/uL (1.7-8.2); EOSINOPHILS % (AUTO) 0.5 % (0-6); HEMATOCRIT 42.1 % (36.0-47.0); LYMPHOCYTES % (AUTO) 52.9 % (13-45); MEAN CORPUSCULAR HEMOGLOBIN 29.8 pg (27.0-33.4); MEAN CORPUSCULAR HGB CONC 33.3 g/dL (32.0-36.0); MEAN CORPUSCULAR VOLUME 90 fl (80-97); PLATELET COUNT 235 10^3/uL (150-450); SEGMENTED NEUTROPHILS % (AUTO) 37.6 % (42-78); TOTAL CELLS COUNTED % (AUTO) 100 %; WHITE BLOOD COUNT 5.9 10^3/uL (4.0-10.5)
[2018-02-07 00:18] LABS: ALBUMIN 3.7 g/dL (3.5-5.0); ANION GAP 11 (5-19); BLOOD UREA NITROGEN 20 mg/dL (7-20); CALCIUM 10.1 mg/dL (8.4-10.2); CARBON DIOXIDE 28 mmol/L (22-30); CHLORIDE 104 mmol/L (98-107); GLUCOSE 155 mg/dL (75-110); POTASSIUM 3.9 mmol/L (3.6-5.0); SODIUM 142.6 mmol/L (137-145); TOTAL PROTEIN 8.4 g/dL (6.3-8.2)
[2018-02-07 00:39] LABS: ALANINE AMINOTRANSFERASE 46 U/L (9-52); ALKALINE PHOSPHATASE 179 U/L (38-126); ASPARTATE AMINO TRANSFERASE 70 U/L (14-36); BILIRUBIN,DIRECT 0.8 mg/dL (0.0-0.4)
[2018-02-07] MEDS ORDERED: RINGERS SOLUTION,LACTATED 1,000 ML IV ONE (01:44)
[2018-02-07] MEDS ORDERED: MAGNESIUM CITRATE 296 ML BOTTLE PO ONE (01:45)
[2018-02-07 02:04] LABS: APPEARANCE,URINE CLOUDY; BILIRUBIN,URINE NEGATIVE (NEGATIVE); GLUCOSE, URINE >=500 mg/dL (NEGATIVE); KETONES,URINE TRACE mg/dL (NEGATIVE); LEUKOCYTE ESTERASE,URINE NEGATIVE (NEGATIVE); NITRITE,URINE NEGATIVE (NEGATIVE); PROTEIN,URINE 100 mg/dL (NEGATIVE); URINE SPECIFIC GRAVITY 1.015
[2018-02-07 02:06] LABS: COLOR,URINE YELLOW
[2018-02-07 04:06] VITALS: BP 138/88
== END 2018-02-07 03:51 | disposition home or self-care (01) ==
LOC: ER 18:57
DX: K59.00 Constipation, unspecified (principal); R10.84 Generalized abdominal pain; R63.0 Anorexia; I10 Essential (primary) hypertension; E11.9 Type 2 diabetes mellitus without complications; J45.909 Unspecified asthma, uncomplicated
CPT/HCPCS: 99283; 96360; 36415; 83690; 85025; 80053; 81001; 74018; J3490 ×2

== ENCOUNTER 2018-02-10 11:28 | Emergency (ER) | payer MEDICARE, MEDICAID ==
--- NOTE | 2018-02-10 11:42 | ER Document Report ---
ED Medical Screen (RME) - General Chief Complaint: Abdominal Pain Stated Complaint: WEAKNESS Time Seen by Provider: 02/10/18 11:38 Notes: 68-year-old female patient sent to the emergency room by her primary care provider to check for low-grade infection. Patient has had some suprapubic abdominal pain. She does not drink water. She does have dementia. She was seen here 5 days ago with constipation, was treated and was moving her bowels when she left. I have greeted and performed a rapid initial assessment of this patient. A comprehensive ED assessment and evaluation of the patient, analysis of test results and completion of the medical decision making process will be conducted by additional ED providers. TRAVEL OUTSIDE OF THE [place] IN LAST 30 DAYS: No - Related Data Allergies/Adverse Reactions: No Known Allergies Allergy (Verified 02/10/18 11:29) Past Medical History - Social History Chew tobacco use (# tins/day): No Frequency of alcohol use: None Drug Abuse: None Family history: None - Past Medical History Cardiac Medical History: Reports: Hx Hypercholesterolemia, Hx Hypertension Pulmonary Medical History: Reports: Hx Asthma Endocrine Medical History: Reports: Hx Diabetes Mellitus Type 1 - on insulin, Hx Diabetes Mellitus Type 2 Renal/ Medical History: Denies: Hx Peritoneal Dialysis GI Medical History: Reports: Hx Gastroesophageal Reflux Disease, Hx Hepatitis Psychiatric Medical History: Reports: Hx Depression Infectious Medical History: Reports: Hx Hepatitis Past Surgical History: Reports: Hx Abdominal Surgery - Per patient., Hx Hysterectomy - Immunizations Hx Diphtheria, Pertussis, Tetanus Vaccination: No Physical Exam - Vital signs Vitals: Temp Pulse Resp BP Pulse Ox 97.7 F 60 14 101/69 100 02/10/18 11:33 02/10/18 11:33 02/10/18 11:33 02/10/18 11:33 02/10/18 11:33 Course - Vital Signs Vital signs: Temp Pulse Resp BP Pulse Ox 97.7 F 60 14 101/69 100 02/10/18 11:33 02/10/18 11:33 02/10/18 11:33 02/10/18 11:33 02/10/18 11:33 Doctor's Discharge - Discharge Referrals: NAE DE LA FUENTE MD [Primary Care Provider] - Follow up as needed
[2018-02-10] MEDS ORDERED: NORMAL SALINE 1000 ML 500 ML IV PRN (12:19)
--- NOTE | 2018-02-10 12:23 | ER Document Report ---
ED General - General Chief Complaint: Abdominal Pain Stated Complaint: WEAKNESS Time Seen by Provider: 02/10/18 11:38 Mode of Arrival: Ambulatory Information source: Patient Notes: Chief complaint: Not cooperative History of complain:( obtained from----patient) 68 years old female was evaluated by a hydraulic rock drill operator for possible AV fistula placed for possible dialysis. She was not cooperative and would not let them draw blood, would not eat anything or drink anything adamant therefore she was referred to the ED. Otherwise has no complaint of headache chest pain shortness of breath abdominal pain nausea vomiting or diarrhea. Onset: As above Duration: Last several days Severity: Mild to moderate Quality: Unknown Context: Unknown Exacerbating factor and relieving factors: Unknown REVIEW OF SYSTEMS: CONSTITUTIONAL : Denies fever, chills, or sweats. Denies recent illness. EENT: Denies eye, ear, throat, or mouth pain or symptoms. Denies nasal or sinus congestion or discharge. Denies throat, tongue, or mouth swelling or difficulty swallowing. CARDIOVASCULAR: Denies chest pain. Denies palpitations or racing or irregular heart beat. Denies ankle edema. RESPIRATORY: Denies cough, cold, or chest congestion. Denies shortness of breath, difficulty breathing, or wheezing. GASTROINTESTINAL: Denies distention. Denies nausea, vomiting, or diarrhea. Denies blood in vomitus, stools, or per rectum. Denies black, tarry stools. Denies constipation. GENITOURINARY: Denies difficulty urinating, painful urination, burning, frequency, blood in urine, or discharge. FEMALE GENITOURINARY: Denies vaginal bleeding, heavy or abnormal periods, irregular periods. Denies vaginal discharge or odor. MUSCULOSKELETAL: Denies back or neck pain or stiffness. Denies joint pain or swelling. SKIN: Denies rash, lesions or sores. HEMATOLOGIC : Denies easy bruising or bleeding. LYMPHATIC: Denies swollen, enlarged glands. NEUROLOGICAL: Denies confusion or altered mental status. Denies passing out or loss of consciousness. Denies dizziness or lightheadedness. Denies headache. Denies weakness or paralysis or loss of use of either side. Denies problems with gait or speech. Denies sensory loss, numbness, or tingling. Denies seizures. PSYCHIATRIC: Denies anxiety or stress. Denies depression, suicidal ideation, or homicidal ideation. ALL OTHER SYSTEMS REVIEWED AND NEGATIVE. PHYSICAL EXAMINATION: GENERAL: Cachexia of renal disease and in no acute distress. HEAD: Atraumatic, normocephalic. EYES: Pupils equal round and reactive to light, extraocular movements intact, conjunctiva are normal. ENT: Nares patent, oropharynx clear without exudates. Moist mucous membranes. NECK: Normal range of motion, supple without lymphadenopathy LUNGS: Breath sounds clear to auscultation bilaterally and equal. No wheezes rales or rhonchi. HEART: Regular rate and rhythm without murmurs ABDOMEN: Soft, nontender, nondistended abdomen. No guarding, no rebound. No masses appreciated. Examination of genitals-deferred Musculoskeletal: Normal range of motion, no pitting or edema. No cyanosis. NEUROLOGICAL: Cranial nerves grossly intact. Normal speech, normal gait. Normal sensory, motor exams PSYCH: Normal mood, normal affect. SKIN: Multiple old skin lesions noted. Dictation was performed using [employer] voice recognition software TRAVEL OUTSIDE OF THE [place] IN LAST 30 DAYS: No - HPI Notes: Dictated - Related Data Allergies/Adverse Reactions: No Known Allergies Allergy (Verified 02/10/18 11:29) Past Medical History - Social History Smoking Status: Never Smoker Chew tobacco use (# tins/day): No Frequency of alcohol use: None Drug Abuse: None Lives with: Family Family History: Reviewed & Not Pertinent Patient has suicidal ideation: No Patient has homicidal ideation: No - Past Medical History Cardiac Medical History: Reports: Hx Hypercholesterolemia, Hx Hypertension Pulmonary Medical History: Reports: Hx Asthma Endocrine Medical History: Reports: Hx Diabetes Mellitus Type 1 - on insulin, Hx Diabetes Mellitus Type 2 Renal/ Medical History: Denies: Hx Peritoneal Dialysis GI Medical History: Reports: Hx Gastroesophageal Reflux Disease, Hx Hepatitis Psychiatric Medical History: Reports: Hx Depression Infectious Medical History: Reports: Hx Hepatitis Past Surgical History: Reports: Hx Abdominal Surgery - Per patient., Hx Hysterectomy - Immunizations Hx Diphtheria, Pertussis, Tetanus Vaccination: No Review of Systems - Review of Systems Notes: Dictated Physical Exam - Vital signs Vitals: Temp Pulse Resp BP Pulse Ox 97.7 F 60 14 101/69 100 02/10/18 11:33 02/10/18 11:33 02/10/18 11:33 02/10/18 11:33 02/10/18 11:33 - Notes Notes: Dictated Course - Re-evaluation Re-evalutation: 02/10/18 15:07 Given IV fluid - Vital Signs Vital signs: Temp Pulse Resp BP Pulse Ox 97.7 F 60 14 101/69 100 02/10/18 11:33 02/10/18 11:33 02/10/18 11:33 02/10/18 11:33 02/10/18 11:33 - Laboratory Result Diagrams: 02/10/18 12:50 02/10/18 14:29 Laboratory results interpreted by me: 02/10/18 02/10/18 13:43 14:29 Sodium 145.2 H BUN 27 H Glucose 136 H Direct Bilirubin 0.5 H AST 68 H Alkaline Phosphatase 151 H Albumin 3.4 L Urine Protein 100 H Urine Glucose (UA) >=500 H Urine Ketones 20 H Urine Urobilinogen 4.0 H Discharge - Discharge Clinical Impression: Dehydration Condition: Fair Disposition: HOME, SELF-CARE Instructions: Dehydration ([facility]) Referrals: ANE DE LA FUENTE MD [ACTIVE STAFF] - Follow up as needed
[2018-02-10 12:58] LABS: ABSOLUTE LYMPHOCYTES (AUTO) 2.1 10^3/uL (0.5-4.7); ABSOLUTE MONOCYTES (AUTO) 0.5 10^3/uL (0.1-1.4); ABSOLUTE NEUT (AUTO) 2.1 10^3/uL (1.7-8.2); EOSINOPHILS % (AUTO) 0.7 % (0-6); HEMATOCRIT 40.3 % (36.0-47.0); HEMOGLOBIN 13.3 g/dL (12.0-15.5); LYMPHOCYTES % (AUTO) 43.4 % (13-45); MEAN CORPUSCULAR VOLUME 91 fl (80-97); MONOCYTES % (AUTO) 10.6 % (3-13); PLATELET COUNT 269 10^3/uL (150-450); RED BLOOD COUNT 4.43 10^6/uL (3.72-5.28); RED CELL DISTRIBUTION WIDTH 13.3 % (11.5-14.0); SEGMENTED NEUTROPHILS % (AUTO) 44.3 % (42-78); TOTAL CELLS COUNTED % (AUTO) 100 %; WHITE BLOOD COUNT 4.8 10^3/uL (4.0-10.5)
[2018-02-10 14:07] LABS: APPEARANCE,URINE CLEAR; BILIRUBIN,URINE NEGATIVE (NEGATIVE); GLUCOSE, URINE >=500 mg/dL (NEGATIVE); KETONES,URINE 20 mg/dL (NEGATIVE); LEUKOCYTE ESTERASE,URINE NEGATIVE (NEGATIVE); NITRITE,URINE NEGATIVE (NEGATIVE); PROTEIN,URINE 100 mg/dL (NEGATIVE); URINE SPECIFIC GRAVITY 1.016
[2018-02-10 14:11] LABS: COLOR,URINE YELLOW
[2018-02-10 14:59] LABS: ALANINE AMINOTRANSFERASE 48 U/L (9-52); ALBUMIN 3.4 g/dL (3.5-5.0); ALKALINE PHOSPHATASE 151 U/L (38-126); ANION GAP 9 (5-19); ASPARTATE AMINO TRANSFERASE 68 U/L (14-36); BILIRUBIN,DIRECT 0.5 mg/dL (0.0-0.4); BILIRUBIN,TOTAL 0.7 mg/dL (0.2-1.3); BLOOD UREA NITROGEN 27 mg/dL (7-20); CALCIUM 9.7 mg/dL (8.4-10.2); CARBON DIOXIDE 29 mmol/L (22-30); CHLORIDE 107 mmol/L (98-107); GLUCOSE 136 mg/dL (75-110); POTASSIUM 3.8 mmol/L (3.6-5.0); SODIUM 145.2 mmol/L (137-145); TOTAL PROTEIN 7.7 g/dL (6.3-8.2)
[2018-02-10 15:20] VITALS: BP 180/86
== END 2018-02-10 15:23 | disposition home or self-care (01) ==
LOC: ER 11:28
DX: R10.9 Unspecified abdominal pain (principal); R53.1 Weakness; E86.0 Dehydration; E78.00 Pure hypercholesterolemia, unspecified; I10 Essential (primary) hypertension; E11.9 Type 2 diabetes mellitus without complications; Z79.4 Long term (current) use of insulin
CPT/HCPCS: 99285; 96360; 96361; 51701; 36415; 85025; 80053; 81001; J7030

== ENCOUNTER → 2018-02-25 | Outpatient (CLI) | payer MEDICARE, MEDICAID ==
[2018-02-25 09:25] LABS: APPEARANCE,URINE CLOUDY; BILIRUBIN,URINE NEGATIVE (NEGATIVE); GLUCOSE, URINE NEGATIVE (NEGATIVE); KETONES,URINE 20 mg/dL (NEGATIVE); LEUKOCYTE ESTERASE,URINE LARGE (NEGATIVE); NITRITE,URINE POSITIVE (NEGATIVE); PROTEIN,URINE 100 mg/dL (NEGATIVE); URINE SPECIFIC GRAVITY 1.025
[2018-02-25 09:25] LABS: HEMATOCRIT 38.9 % (36.0-47.0); HEMOGLOBIN 12.6 g/dL (12.0-15.5); MEAN CORPUSCULAR HGB CONC 32.4 g/dL (32.0-36.0); MEAN CORPUSCULAR VOLUME 93 fl (80-97); PLATELET COUNT 196 10^3/uL (150-450); RED CELL DISTRIBUTION WIDTH 13.4 % (11.5-14.0); WHITE BLOOD COUNT 5.2 10^3/uL (4.0-10.5)
[2018-02-25 09:26] LABS: COLOR,URINE YELLOW
[2018-02-25 09:45] LABS: UR PRO/CREAT RATIO RESULT 0.5 mg/mg (0.0-0.2); URINE CREATININE 201.6 mg/dL (15-278); URINE PROTEIN 104.3 mg/dL (<12)
[2018-02-25 09:45] LABS: ALANINE AMINOTRANSFERASE 44 U/L (9-52); ALBUMIN 3.4 g/dL (3.5-5.0); ALKALINE PHOSPHATASE 105 U/L (38-126); ANION GAP 9 (5-19); ASPARTATE AMINO TRANSFERASE 53 U/L (14-36); BILIRUBIN,DIRECT 0.6 mg/dL (0.0-0.4); BILIRUBIN,TOTAL 0.9 mg/dL (0.2-1.3); BLOOD UREA NITROGEN 41 mg/dL (7-20); CALCIUM 10.1 mg/dL (8.4-10.2); CARBON DIOXIDE 32 mmol/L (22-30); CHLORIDE 106 mmol/L (98-107); GLUCOSE 152 mg/dL (75-110); POTASSIUM 4.7 mmol/L (3.6-5.0); SODIUM 146.7 mmol/L (137-145); TOTAL PROTEIN 7.5 g/dL (6.3-8.2)
[2018-02-25 09:46] LABS: ABSOLUTE LYMPHOCYTES# (MANUAL) 3.7 10^3/uL (0.5-4.7); ABSOLUTE MONOCYTES # (MANUAL) 0.2 10^3/uL (0.1-1.4); ABSOLUTE NEUTROPHILS# (MANUAL) 1.3 10^3/uL (1.7-8.2); BASOPHILS % (MANUAL) 0 % (0-2); EOSINOPHILS % (MANUAL) 0 % (0-6); MONOCYTES % (MANUAL) 4 % (3-13); SEGMENTED NEUTROPHILS % (MAN) 25 % (42-78); TOTAL CELLS COUNTED 100
[2018-02-25 09:47] LABS: OVALOCYTES SLIGHT; PLATELET COMMENT ADEQUATE; POIKILOCYTOSIS SLIGHT
[2018-02-25 09:48] LABS: LYMPHOCYTES % (MANUAL) 68 % (13-45)
[2018-02-26 07:40] LABS: HEPATITIS BE ANTIGEN Negative (Negative); HEPATITS B SURFACE ANTIGEN Negative (Negative)
[2018-02-27 07:54] LABS: HEPATITIS B CORE AB TOT Negative (Negative)
[2018-02-27 07:55] LABS: HEPATITIS C VIRUS AB >11.0 s/co ratio (0.0-0.9)
[2018-02-28 14:21] LABS: PATH REVIEW PATHOLOGIST REVIEWED
== END ==
LOC: OD 07:44
PROVIDERS: ATTEND Internal Medicine Nephrology
DX: E11.9 Type 2 diabetes mellitus without complications (principal); R80.9 Proteinuria, unspecified; I10 Essential (primary) hypertension; B18.2 Chronic viral hepatitis C
CPT/HCPCS: 36415; 80053; 81001; 82533; 82570; 84156; 85025; 86704; 86803; 86804; 87340; 87350

== ENCOUNTER 2018-03-16 13:19 | Inpatient (IN) | payer MEDICARE, MEDICAID ==
[2018-03-16] MEDS ORDERED: LACTULOSE SYRUP 20 GM/30 ML UDCUP PO ONE (13:44)
[2018-03-16] MEDS ORDERED: LACTULOSE SYRUP 20 GM/30 ML UDCUP PR ONE (13:44)
[2018-03-16] MEDS ORDERED: NORMAL SALINE 1000 ML 1,000 ML IV ONE ×2 (13:44→17:04)
[2018-03-16] MEDS ORDERED: NORMAL SALINE 1000 ML 1,000 ML IV PRN ×2 (13:44→18:18)
--- NOTE | 2018-03-16 13:46 | ER Document Report ---
ED Medical Screen (RME) - General TRAVEL OUTSIDE OF THE [place] IN LAST 30 DAYS: No <ROGERIODougTRISHA - Last Filed: 03/16/18 13:45> <ELVIN NORMAN - Last Filed: 03/16/18 17:36> - General Chief Complaint: Constipation Stated Complaint: CONSTIPATION/RIGHT LEG PAIN Time Seen by Provider: 03/16/18 13:37 Notes: 68 years old female with a history of mental slowness, constipation, here before for the same reason. Had CT as well as abdominal x-ray done during the last visit. No positive finding except hard stools. Subsequently she has seen the forensic science examiner twice, they could not do colonoscopy due to impacted stool. Copying Machine Mechanic bring her back again with no stools for a week, decreased urine output. Poor p.o. intake. Cachectic (MONIK LIMONRICHIOLIVERIO) - Related Data Allergies/Adverse Reactions: No Known Allergies Allergy (Verified 03/16/18 13:20) Past Medical History - Social History Family history: None - Past Medical History Cardiac Medical History: Reports: Hx Hypercholesterolemia, Hx Hypertension Pulmonary Medical History: Reports: Hx Asthma Endocrine Medical History: Reports: Hx Diabetes Mellitus Type 1 - on insulin, Hx Diabetes Mellitus Type 2 Renal/ Medical History: Denies: Hx Peritoneal Dialysis GI Medical History: Reports: Hx Gastroesophageal Reflux Disease, Hx Hepatitis Psychiatric Medical History: Reports: Hx Depression Infectious Medical History: Reports: Hx Hepatitis Past Surgical History: Reports: Hx Abdominal Surgery - Per patient., Hx Hysterectomy - Immunizations Hx Diphtheria, Pertussis, Tetanus Vaccination: No <TRISHA LIMON - Last Filed: 03/16/18 13:45> - Vital signs Vitals: Temp Pulse Resp BP Pulse Ox 98 F 74 18 78/53 L 99 03/16/18 13:27 03/16/18 13:27 03/16/18 13:27 03/16/18 13:27 03/16/18 13:27 Course - Laboratory Result Diagrams: 03/16/18 14:20 03/16/18 14:20 <ELVIN NORMAN - Last Filed: 03/16/18 17:36> - Vital Signs Vital signs: Temp Pulse Resp BP Pulse Ox 98 F 74 12 145/82 H 100 03/16/18 13:27 03/16/18 13:27 03/16/18 17:01 03/16/18 17:01 03/16/18 17:01 - Laboratory Laboratory results interpreted by me: 03/16/18 03/16/18 03/16/18 14:20 14:20 14:20 Sodium 151.6 H Chloride 111 H BUN 85 H Creatinine 2.04 H Est GFR ( Amer) 29 L Est GFR (Non-Af Amer) 24 L Calcium 11.5 H Direct Bilirubin 0.8 H AST 43 H Free T3 pg/mL 1.86 L Urine Protein 30 H Urine Glucose (UA) 50 H Urine Blood SMALL H Doctor's Discharge <TRISHA LIMON - Last Filed: 03/16/18 13:45> <ELVIN NORMAN - Last Filed: 03/16/18 17:36> - Discharge Clinical Impression: Acute urinary retention, Dehydration Hypotension Qualifiers: Hypotension type: unspecified hypotension type Qualified Code(s): I95.9 - Hypotension, unspecified Acute renal failure Qualifiers: Acute renal failure type: unspecified Qualified Code(s): N17.9 - Acute kidney failure, unspecified Dementia Qualifiers: Dementia type: unspecified type Dementia behavioral disturbance: without behavioral disturbance Qualified Code(s): F03.90 - Unspecified dementia without behavioral disturbance Referrals: NAE DE AL FUENTE MD [ACTIVE STAFF] - Follow up as needed
--- NOTE | 2018-03-16 14:14 | RADIOLOGY REPORT (SQ) ---
EXAM DESCRIPTION: ACUTE ABDOMEN SERIES COMPLETED DATE/TIME: 03/16/2018 2:04 pm REASON FOR STUDY: Abdominal pain COMPARISON: CT 10/03/2017 NUMBER OF VIEWS: Three views. TECHNIQUE: Frontal chest, supine abdomen and upright/decubitus abdomen radiographic images acquired. LIMITATIONS: None. FINDINGS: CHEST: Hyperexpansion of the lungs. No infiltrate or effusion. FREE AIR: None. No abnormal gas collections. BOWEL GAS PATTERN: Nonobstructive pattern. No dilated loops or air fluid levels. CALCIFICATIONS: No suspicious calcifications. HARDWARE: None in the abdomen. SOFT TISSUES: There is considerable fullness in the pelvis. BONES: No acute fracture. No worrisome bone lesions. OTHER: No other significant finding. IMPRESSION: Chronic lung changes. Nonspecific abdomen. Cannot exclude a pelvic mass. May represen t bowel contents. No mass is seen on the CT done on 10/03/2017. TECHNICAL DOCUMENTATION: JOB ID: [id number] [employer]- All Rights Reserved Reading location - IP/workstation name: [email or web address]
[2018-03-16] MEDS ORDERED: MINERAL OIL 30 ML UDCUP PR ONE (14:18)
--- NOTE | 2018-03-16 14:21 | ER Document Report ---
ED General - General Mode of Arrival: Wheelchair Information source: Relative, [facility] Records TRAVEL OUTSIDE OF THE [place] IN LAST 30 DAYS: No <SIMBA DUNN - Last Filed: 03/16/18 14:58> <ELVIN NORMAN - Last Filed: 03/16/18 17:40> - General Chief Complaint: Constipation Stated Complaint: CONSTIPATION/RIGHT LEG PAIN Time Seen by Provider: 03/16/18 13:37 Notes: Patient is a 68 year old female with dementia, diabetes type 2 and a history of constipation presents to the emergency department complaining of constipation. According to project lead, patient has not had a bowel moment or any urine output for the last 3 days. They also report a fall on the patient's right leg yesterday. Of significance, patient had a urinalysis done on 2017 to look for proteinuira and was diagnosed with a UTI. Patient had another sample collected on which was cultured. Culture was found to have E.coli and patient was subsequently place on a 7 day course of Doxycycline on . (SIMBA DUNN) - Related Data Allergies/Adverse Reactions: No Known Allergies Allergy (Verified 03/16/18 13:20) Past Medical History - General Information source: Relative, [facility] Records - Social History Smoking Status: Never Smoker Frequency of alcohol use: None Drug Abuse: None Family History: Reviewed & Not Pertinent Patient has suicidal ideation: No Patient has homicidal ideation: No - Past Medical History Cardiac Medical History: Reports: Hx Hypercholesterolemia, Hx Hypertension Pulmonary Medical History: Reports: Hx Asthma Endocrine Medical History: Reports: Hx Diabetes Mellitus Type 1 - on insulin, Hx Diabetes Mellitus Type 2 GI Medical History: Reports: Hx Gastroesophageal Reflux Disease, Hx Hepatitis Psychiatric Medical History: Reports: Hx Depression Infectious Medical History: Reports: Hx Hepatitis Past Surgical History: Reports: Hx Abdominal Surgery - Per patient., Hx Hysterectomy - Immunizations Hx Diphtheria, Pertussis, Tetanus Vaccination: No <SIMBA DUNN - Last Filed: 03/16/18 14:58> Review of Systems - Review of Systems Constitutional: No symptoms reported EENT: No symptoms reported Cardiovascular: No symptoms reported Respiratory: No symptoms reported Gastrointestinal: See HPI, Constipation Genitourinary: See HPI, Retention Female Genitourinary: No symptoms reported Musculoskeletal: See HPI Skin: No symptoms reported Hematologic/Lymphatic: No symptoms reported Neurological/Psychological: See HPI, Dementia <SIMBA DUNN - Last Filed: 03/16/18 14:58> <ELVIN NORMAN - Last Filed: 03/16/18 17:40> - Review of Systems Notes: ROS obtained from caregiver (SIMBA DUNN) Physical Exam <SIMBA DUNN - Last Filed: 03/16/18 14:58> <ELVIN NORMAN - Last Filed: 03/16/18 17:40> - Vital signs Vitals: Temp Pulse Resp BP Pulse Ox 98 F 74 18 78/53 L 99 03/16/18 13:27 03/16/18 13:27 03/16/18 13:27 03/16/18 13:27 03/16/18 13:27 - Notes Notes: GENERAL: Alert, cachetic. Demented. Does not speak. No acute distress. HEAD: Normocephalic, atraumatic. EYES: Pupils equal, round, and reactive to light. Extraocular movements intact. ENT: Oral mucosa moist, tongue midline. NECK: Full range of motion. Supple. Trachea midline. LUNGS: Clear to auscultation bilaterally, no wheezes, rales, or rhonchi. No respiratory distress. HEART: Regular rate and rhythm. No murmurs, gallops, or rubs. ABDOMEN: Soft, appears tender to palpation diffusely. Lower abdomen distended. Dull to percussion. Bowel sounds present in all 4 quadrants. EXTREMITIES: Moves all 4 extremities spontaneously, no pain or difficulty extending, flexing, or with internal or external rotation of bilateral lower extremities. No signs of swelling of knees, hips or feet bilaterally. No edema, radial and dorsalis pedis pulses 2/4 bilaterally. No cyanosis. NEUROLOGICAL: Demented. Does not speak. SKIN: Warm, dry, normal turgor. No rashes or lesions noted. RECTAL: Large amount of soft brown stool immediately inside rectum. (SIMBA DUNN) Course - Laboratory Result Diagrams: 03/16/18 14:20 03/16/18 14:20 <SIMBA DUNN - Last Filed: 03/16/18 14:58> - Laboratory Result Diagrams: 03/16/18 14:20 03/16/18 14:20 - Diagnostic Test Radiology reviewed: Image reviewed - Constipation, distended bladder. - EKG Interpretation by Me EKG shows normal: Sinus rhythm, Ramona, Intervals, QRS Complexes, ST-T Waves Rate: Normal - 85 Rhythm: NSR - Consults Dr. Phillips Time consulted: 17:30 Consulted provider: will come to ER <ELVIN NORMAN - Last Filed: 03/16/18 17:40> - Re-evaluation Re-evalutation: 03/16/18 14:48 Ballard catheter was placed and the patient drained 1,380 mL's of dark tea colored urine. The Ballard was clamped at that point so there is probably more urine in the bladder. The abdomen became soft and scaphoid at that point. (ELVIN NORMAN) - Vital Signs Vital signs: Temp Pulse Resp BP Pulse Ox 98 F 74 12 145/82 H 100 03/16/18 13:27 03/16/18 13:27 03/16/18 17:01 03/16/18 17:01 03/16/18 17:01 - Laboratory Laboratory results interpreted by me: 03/16/18 03/16/18 03/16/18 14:20 14:20 14:20 Sodium 151.6 H Chloride 111 H BUN 85 H Creatinine 2.04 H Est GFR ( Amer) 29 L Est GFR (Non-Af Amer) 24 L Calcium 11.5 H Direct Bilirubin 0.8 H AST 43 H Free T3 pg/mL 1.86 L Urine Protein 30 H Urine Glucose (UA) 50 H Urine Blood SMALL H Discharge <SIMBA DUNN - Last Filed: 03/16/18 14:58> - Discharge Admitting Provider: Hospitalist <ELVIN NORMAN - Last Filed: 03/16/18 17:40> - Discharge Clinical Impression: Acute urinary retention, Dehydration Hypotension Qualifiers: Hypotension type: unspecified hypotension type Qualified Code(s): I95.9 - Hypotension, unspecified Acute renal failure Qualifiers: Acute renal failure type: unspecified Qualified Code(s): N17.9 - Acute kidney failure, unspecified Dementia Qualifiers: Dementia type: unspecified type Dementia behavioral disturbance: without behavioral disturbance Qualified Code(s): F03.90 - Unspecified dementia without behavioral disturbance Condition: Stable Disposition: ADMITTED INPATIENT Scribe Attestation: 03/16/18 15:01 I personally performed the services described in the documentation, reviewed and edited the documentation which was dictated to the scribe in my presence, and it accurately records my words and actions. (ELVIN NORMAN) Scribe Documentation - Scribe Written by Scribe:: Keayna Drake, 03/16/2018 14:26 acting as scribe for :: Zulma <SIMBA DUNN - Last Filed: 03/16/18 14:58>
[2018-03-16 14:50] LABS: APPEARANCE,URINE SLIGHTLY-CLOUDY; BILIRUBIN,URINE NEGATIVE (NEGATIVE); CALCIUM OXALATE CRYSTALS,URINE FEW /HPF; GLUCOSE, URINE 50 mg/dL (NEGATIVE); KETONES,URINE NEGATIVE (NEGATIVE); LEUKOCYTE ESTERASE,URINE NEGATIVE (NEGATIVE); NITRITE,URINE NEGATIVE (NEGATIVE); PROTEIN,URINE 30 mg/dL (NEGATIVE); URINE SPECIFIC GRAVITY 1.017; UROBILINOGEN,URINE NEGATIVE mg/dL (<2.0)
[2018-03-16 14:53] LABS: COLOR,URINE BROWN
[2018-03-16 14:59] LABS: ABSOLUTE BASOPHILS # (AUTO) 0.1 10^3/uL (0.0-0.2); ABSOLUTE LYMPHOCYTES (AUTO) 2.2 10^3/uL (0.5-4.7); ABSOLUTE MONOCYTES (AUTO) 0.9 10^3/uL (0.1-1.4); ABSOLUTE NEUT (AUTO) 7.3 10^3/uL (1.7-8.2); BASOPHILS % (AUTO) 0.6 % (0-2); EOSINOPHILS % (AUTO) 0.2 % (0-6); HEMATOCRIT 43.9 % (36.0-47.0); HEMOGLOBIN 14.6 g/dL (12.0-15.5); LYMPHOCYTES % (AUTO) 21.2 % (13-45); MEAN CORPUSCULAR HEMOGLOBIN 30.4 pg (27.0-33.4); MEAN CORPUSCULAR HGB CONC 33.3 g/dL (32.0-36.0); MEAN CORPUSCULAR VOLUME 91 fl (80-97); MONOCYTES % (AUTO) 8.5 % (3-13); PLATELET COUNT 184 10^3/uL (150-450); RED BLOOD COUNT 4.81 10^6/uL (3.72-5.28); RED CELL DISTRIBUTION WIDTH 13.8 % (11.5-14.0); SEGMENTED NEUTROPHILS % (AUTO) 69.5 % (42-78); TOTAL CELLS COUNTED % (AUTO) 100 %; WHITE BLOOD COUNT 10.5 10^3/uL (4.0-10.5)
[2018-03-16 15:15] LABS: ALANINE AMINOTRANSFERASE 37 U/L (9-52); ALBUMIN 3.6 g/dL (3.5-5.0); ALKALINE PHOSPHATASE 110 U/L (38-126); ANION GAP 18 (5-19); ASPARTATE AMINO TRANSFERASE 43 U/L (14-36); BILIRUBIN,DIRECT 0.8 mg/dL (0.0-0.4); BILIRUBIN,TOTAL 1.2 mg/dL (0.2-1.3); BLOOD UREA NITROGEN 85 mg/dL (7-20); CALCIUM 11.5 mg/dL (8.4-10.2); CARBON DIOXIDE 23 mmol/L (22-30); CHLORIDE 111 mmol/L (98-107); GLUCOSE 101 mg/dL (75-110); POTASSIUM 4.6 mmol/L (3.6-5.0); SODIUM 151.6 mmol/L (137-145); TOTAL PROTEIN 7.5 g/dL (6.3-8.2)
[2018-03-16 15:28] LABS: FREE T3 1.86 pg/mL (2.77-5.27); FREE T4 (FREE THYROXINE) 1.72 ng/dL (0.78-2.19)
[2018-03-16 15:49] LABS: CREATINE KINASE 46 U/L (30-135)
--- NOTE | 2018-03-16 18:15 | EKG REPORT ---
SEVERITY:- ABNORMAL ECG - SINUS RHYTHM CONSIDER OLD ANTEROSEPTAL [place]. NONSPECIFIC ST-T CHANGES DIFFUSE. : Confirmed by: Dillon Reddy MD 16-Mar-2018 18:15:08
[2018-03-16] MEDS ORDERED: GLUCAGON,HUMAN RECOMB 1 MG INJ IM PRN (18:19)
[2018-03-16] MEDS ORDERED: DEXTROSE 40% GEL 15 GM TUBE PO PRN ×2 (18:19)
[2018-03-16] MEDS ORDERED: DEXTROSE 50%-WATER 25 GM/50 ML DISP.SYRIN IV PRN ×2 (18:19)
--- NOTE | 2018-03-16 18:37 | PDOC H&P ---
History of Present Illness Admission Date/PCP: 03/16/18 18:13 BRYNN OLIVAS PA-C Patient complains of: chronic constipation, weakness, urinary retention History of Present Illness: CHAZ ANDERSON is a 68 year old female with a past medical history of insulin dependent diabetes mellitus, untreated Hepatitis C infection, cognitive impairment and depression who was brought in due to worsening constipation and urinary retention. Patient refused to talk and history if obtained largely from perfumer/DPOA ( [place]) who says patient has been having chronic constipation for more than a year. She also has chronic poor appetite and chronic cachexia. Tuber Machine Operator says she started taking care of patient in January this year but met her first in May and she was already noted to be cachectic. Per perfumer, she has not had any urine output and bowel movement as well in the past 3 days. In the ER, she was noted to have acute urinary retention and had 1300 cc of urine output. She was given enema and had one BM with non-bloody , non tarry stools. Tuber Machine Operator says there has been 2 previous unsuccessful attempts for colonoscopies before (last one being in August 2017) to screen her for colon cancer but patient has always been noncompliant with prep. She also had an EGD in August which was reportedly unremarkable. She does deny chest pain, SOB, fever or chills. Past Medical History Cardiac Medical History: Reports: Hyperlipidema, Hypertension Pulmonary Medical History: Reports: Asthma Endocrine Medical History: Reports: Diabetes Mellitus Type 1 - on insulin, Diabetes Mellitus Type 2 GI Medical History: Reports: Gastroesophageal Reflux Disease, Hepatitis Psychiatric Medical History: Reports: Depression Hematology: Reports: Anemia Past Surgical History Past Surgical History: Reports: Hysterectomy Social History Smoking Status: Never Smoker Frequency of Alcohol Use: None Hx Recreational Drug Use: No Hx Prescription Drug Abuse: No Family History Family History: Reviewed & Not Pertinent Parental Family History Reviewed: Yes - no premature CAD Children Family History Reviewed: No Sibling(s) Family History Reviewed.: No Medication/Allergy Home Medications: Insulin Detemir [Levemir Flextouch] 35 unit SQ QHS PRN 11/18/17 Citalopram Hydrobromide [Citalopram HBr] 5 ml PO DAILY 03/16/18 Insulin Regular, Human [Novolin R] 1 unit SQ TID 03/16/18 Midodrine HCl [Proamatine 5 mg Tablet] 5 mg PO BID 03/16/18 Allergies/Adverse Reactions: No Known Allergies Allergy (Verified 03/16/18 13:20) Review of Systems All systems: reviewed and no additional remarkable complaints except as stated - as mentioned in HPI Physical Exam Vital Signs: Temp Pulse Resp BP Pulse Ox 98 F 74 17 161/95 H 100 03/16/18 13:27 03/16/18 13:27 03/16/18 17:46 03/16/18 17:46 03/16/18 17:46 General appearance: PRESENT: no acute distress, thin - cachectic Head exam: PRESENT: atraumatic, normocephalic Eye exam: PRESENT: conjunctiva pink, EOMI, PERRLA. ABSENT: scleral icterus Ear exam: PRESENT: normal external ear exam Mouth exam: PRESENT: moist, tongue midline Neck exam: ABSENT: carotid bruit, JVD, lymphadenopathy, thyromegaly Respiratory exam: PRESENT: clear to auscultation ming. ABSENT: rales, rhonchi, wheezes Cardiovascular exam: PRESENT: RRR. ABSENT: diastolic murmur, rubs, systolic murmur Pulses: PRESENT: normal dorsalis pedis pul GI/Abdominal exam: PRESENT: normal bowel sounds, soft, tenderness - very minimal direct epigastric tenderness. ABSENT: distended, guarding, mass, organolmegaly, rebound Rectal exam: PRESENT: deferred Neurological exam: PRESENT: alert, awake Results Impressions: Acute Abdomen Series 03/16/18 13:43 IMPRESSION: Chronic lung changes. Nonspecific abdomen. Cannot exclude a pelvic mass. May represent bowel contents. No mass is seen on the CT done on . Assessment & Plan - Diagnosis (1) Acute renal failure Qualifiers: Acute renal failure type: unspecified Qualified Code(s): N17.9 - Acute kidney failure, unspecified Is this a current diagnosis for this admission?: Yes Plan: Possible pre-renal. Patient does appear dehydrated. She has been given 2L of fluid bolus in the ER. Continue IV fluids with PLR at 125 cc/hr. Will check FeNa. Repeat BMP tomorrow. Will also proceed with imaging to rule out obstructive cause. (2) Acute urinary retention Is this a current diagnosis for this admission?: Yes Plan: She had 1300 cc of urine out after insertion of Ballard. (3) Dehydration Is this a current diagnosis for this admission?: Yes Plan: Secondary to poor oral intake. Continue IV fluids. (4) IDDM (insulin dependent diabetes mellitus) Is this a current diagnosis for this admission?: Yes Plan: Sugars on the low normal end. Will hold off on home insulin regimen. Will check sugars and will cover with sliding scale for now. (5) Hepatitis C Is this a current diagnosis for this admission?: Yes Plan: Tuber Machine Operator says patient has hepatitis C but patient did not comply with medications in the past. (6) Cognitive impairment Is this a current diagnosis for this admission?: Yes Plan: Questionable dementia. Tuber Machine Operator says patient has been diagnosed with cognitive impairment by previous PCP but has not been formally diagnosed with dementia before. (7) Hypernatremia Is this a current diagnosis for this admission?: Yes Plan: Likely related to dehydration. Repeat BMP tomorrow morning. (8) Hypercalcemia Is this a current diagnosis for this admission?: Yes Plan: Likely secondary to dehydration. Will recheck calcium tomorrow morning. - Time Time Spent: 30 to 50 Minutes
[2018-03-16 20:11] LABS: URINE CREATININE 126.6 mg/dL (15-278)
--- NOTE | 2018-03-16 20:26 | RADIOLOGY REPORT (SQ) ---
EXAM DESCRIPTION: CT ABD/PELVIS NO ORAL OR IV COMPLETED DATE/TIME: 03/16/2018 6:46 pm REASON FOR STUDY: wt loss,chronic constip'n,abd pain,untreated hepC COMPARISON: 10/03/2017 TECHNIQUE: CT scan of the abdomen and pelvis performed without intravenous or oral contrast. Images reviewed with lung, soft tissue, and bone windows. Reconstructed coronal and sagittal MPR images revi ewed. All images stored on PACS. All CT scanners at this facility use dose modulation, iterative reconstruction, and/or weight based d osing when appropriate to reduce radiation dose to as low as reasonably achievable (ALARA). [facility]: Dose Right [facility]: CareDose [facility]: Dose Right [facility]: Teradose 4D [facility]: [employer] RADIATION DOSE: CT Rad equipment meets quality standard of care and radiation dose reduction techniq ues were employed. CTDIvol: 4.8 mGy. DLP: 234 mGy-cm.mGy. LIMITATIONS: None. FINDINGS: LOWER CHEST: No significant findings. No nodules or infiltrates. NON-CONTRASTED LIVER, SPLEEN, ADRENALS: Evaluation limited by lack of IV contrast. No identified sign ificant masses. PANCREAS: No masses. No peripancreatic inflammatory changes. GALLBLADDER: Gallbladder is contracted. Gallstones are present. RIGHT KIDNEY AND URETER: No suspicious masses. Assessment limited by lack of IV contrast. No signif icant calcifications. No hydronephrosis or hydroureter. LEFT KIDNEY AND URETER: No suspicious masses. Assessment limited by lack of IV contrast. There are multiple calcifications in the left side of the pelvis that would generally appear to have been prese nt previously. Cannot entirely exclude a distal ureteral calculus. Mild left hydronephrosis/ hydro ureter. AORTA AND RETROPERITONEUM: No aneurysm. No retroperitoneal masses or adenopathy. BOWEL AND PERITONEAL CAVITY: No obvious masses or inflammatory changes. No free fluid. APPENDIX: Not identified. PELVIS, BLADDER, AND ABDOMINAL WALL:A catheter is present in the urinary bladder. The bladder is nev ertheless somewhat distended with fluid and air. BONES: No significant findings. OTHER: No other significant finding. IMPRESSION: Cholelithiasis. Left hydronephrosis. Cannot exclude a stone in the distal left ureter. COMMENT: Quality ID # [id number]: Final reports with documentation of one or more dose reduction techniques (e.g., Automated exposure control, adjustment of the mA and/or kV according to patient size, use of iterative reconstruction technique) TECHNICAL DOCUMENTATION: JOB ID: [id number] [email or web address]- All Rights Reserved Reading location - IP/workstation name: [email or web address]
[2018-03-16] MEDS: HEPARIN SOD (PORCINE) 5,000 UNIT/ML 1 ML SYRINGE SUBCUT SCH (22:27)
[2018-03-17 07:06] LABS: ALANINE AMINOTRANSFERASE 36 U/L (9-52); ALBUMIN 2.6 g/dL (3.5-5.0); ALKALINE PHOSPHATASE 84 U/L (38-126); ANION GAP 13 (5-19); ASPARTATE AMINO TRANSFERASE 30 U/L (14-36); BILIRUBIN,DIRECT 0.6 mg/dL (0.0-0.4); BILIRUBIN,TOTAL 0.8 mg/dL (0.2-1.3); BLOOD UREA NITROGEN 72 mg/dL (7-20); CALCIUM 9.8 mg/dL (8.4-10.2); CARBON DIOXIDE 22 mmol/L (22-30); CHLORIDE 117 mmol/L (98-107); GLUCOSE 129 mg/dL (75-110); POTASSIUM 3.7 mmol/L (3.6-5.0); SODIUM 151.9 mmol/L (137-145); TOTAL PROTEIN 5.9 g/dL (6.3-8.2)
[2018-03-17] MEDS ORDERED: DEXTROSE 5%-WATER 1000 ML 1,000 ML IV PRN (07:41)
[2018-03-17] MEDS ORDERED: RINGERS SOLUTION,LACTATED 1,000 ML IV PRN (09:59)
[2018-03-17] MEDS: POLYETHYLENE GLYCOL 3350 POWDER 17 GM/1 PACKET PO SCH (10:14)
[2018-03-17] MEDS: HEPARIN SOD (PORCINE) 5,000 UNIT/ML 1 ML SYRINGE SUBCUT SCH ×2 (10:14→21:27)
[2018-03-17 16:09] LABS: ANION GAP 9 (5-19); BLOOD UREA NITROGEN 64 mg/dL (7-20); CALCIUM 9.5 mg/dL (8.4-10.2); CARBON DIOXIDE 24 mmol/L (22-30); CHLORIDE 114 mmol/L (98-107); GLUCOSE 257 mg/dL (75-110); POTASSIUM 3.6 mmol/L (3.6-5.0)
--- NOTE | 2018-03-17 18:08 | RADIOLOGY REPORT (SQ) ---
EXAM DESCRIPTION: CT HEAD WITHOUT COMPLETED DATE/TIME: 03/17/2018 5:57 pm REASON FOR STUDY: assess for acute processes E13.9 OTHER SPECIFIED DIABETES MELLITUS WITHOUT COMPLI CATION COMPARISON: 11/18/2017. TECHNIQUE: Axial images acquired through the brain without intravenous contrast. Images reviewed wi th bone, brain and subdural windows. Additional sagittal and coronal reconstructions were generated. Images stored on PACS. All CT scanners at this facility use dose modulation, iterative reconstruction, and/or weight based d osing when appropriate to reduce radiation dose to as low as reasonably achievable (ALARA). [facility]: Dose Right [facility]: CareDose [facility]: Dose Right [facility]: Teradose 4D [facility]: [employer] RADIATION DOSE: CT Rad equipment meets quality standard of care and radiation dose reduction techniq ues were employed. CTDIvol: 53.2 mGy. DLP: 964 mGy-cm. mGy. LIMITATIONS: None. FINDINGS: VENTRICLES: Prominent. CEREBRUM: No masses. No hemorrhage. No midline shift. Areas of low density in the white matter mos t likely due to chronic micro-vascular ischemic change. No evidence for acute infarction. CEREBELLUM: No masses. No hemorrhage. No alteration of density. No evidence for acute infarction. EXTRAAXIAL SPACES: Mild age-related involutional change. No fluid collections. No masses. ORBITS AND GLOBE: No intra- or extraconal masses. Normal contour of globe without masses. CALVARIUM: No fracture. PARANASAL SINUSES: No fluid or mucosal thickening. SOFT TISSUES: No mass or hematoma. OTHER: No other significant finding. IMPRESSION: MILD CHRONIC CHANGES OF ATROPHY AND MICROVASCULAR ISCHEMIA. NO ACUTE PROCESS. EVIDENCE OF ACUTE STROKE: NO. TECHNICAL DOCUMENTATION: JOB ID: [id number] Quality ID # [id number]: Final reports with documentation of one or more dose reduction techniques (e.g., Au tomated exposure control, adjustment of the mA and/or kV according to patient size, use of iterative reconstruction technique) 2010 [employer]- All Rights Reserved Reading location - IP/workstation name: [email or web address]
--- NOTE | 2018-03-17 18:32 | PDOC PROGRESS REPORT ---
Subjective Progress Note for:: 03/17/18 Subjective:: CHAZ ANDERSON is a 68 year old female with a past medical history of insulin dependent diabetes mellitus, untreated Hepatitis C infection, dementia, cognitive impairment and depression who was brought in due to worsening constipation and urinary retention. She was found to be dehydrated, hypernatremic, hypokalemic and was noted to have an BUSHRA No acute event overnight. She does deny chest pain, SOB, fever or chills but mostly non verbal throughout the day. Reason For Visit: BUSHRA,DEHYDRATION,ACUTE URINARY RETENTION Physical Exam Vital Signs: Temp Pulse Resp BP Pulse Ox 97.3 F 65 12 152/83 H 96 03/17/18 04:00 03/17/18 14:00 03/17/18 11:29 03/17/18 11:29 03/17/18 11:29 Intake & Output 03/16/18 03/17/18 03/18/18 06:59 06:59 06:59 Intake Total 1999 Balance 1999 Weight 80 lb 11.027 oz General appearance: PRESENT: no acute distress, thin Head exam: PRESENT: atraumatic, normocephalic Eye exam: PRESENT: conjunctiva pink, EOMI, PERRLA. ABSENT: scleral icterus Ear exam: PRESENT: normal external ear exam Mouth exam: PRESENT: moist, tongue midline Neck exam: ABSENT: carotid bruit, JVD, lymphadenopathy, thyromegaly Respiratory exam: PRESENT: clear to auscultation ming. ABSENT: rales, rhonchi, wheezes Cardiovascular exam: PRESENT: RRR. ABSENT: diastolic murmur, rubs, systolic murmur Pulses: PRESENT: normal dorsalis pedis pul GI/Abdominal exam: PRESENT: normal bowel sounds, soft. ABSENT: distended, guarding, mass, organolmegaly, rebound, tenderness Rectal exam: PRESENT: deferred Neurological exam: PRESENT: alert, awake Results Laboratory Results: 03/17/18 06:41 03/17/18 06:41 Sodium 151.9 H Potassium 3.7 Chloride 117 H Carbon Dioxide 22 Anion Gap 13 BUN 72 H Creatinine 1.55 H Est GFR ( Amer) 40 L Est GFR (Non-Af Amer) 33 L Glucose 129 H Calcium 9.8 Total Bilirubin 0.8 AST 30 ALT 36 Alkaline Phosphatase 84 Total Protein 5.9 L Albumin 2.6 L Impressions: Abdomen/Pelvis CT 03/16/18 00:00 IMPRESSION: Cholelithiasis. Left hydronephrosis. Cannot exclude a stone in the distal left ureter. Acute Abdomen Series 03/16/18 13:43 IMPRESSION: Chronic lung changes. Nonspecific abdomen. Cannot exclude a pelvic mass. May represent bowel contents. No mass is seen on the CT done on . Assessment & Plan - Diagnosis (1) Acute renal failure Qualifiers: Acute renal failure type: unspecified Qualified Code(s): N17.9 - Acute kidney failure, unspecified Is this a current diagnosis for this admission?: Yes Plan: Improving. Likely pre-renal. Patient did present with dehydraiond. She has been given 2L of fluid bolus in the ER. Continue IV fluids with PLR at 125 cc/hr. Creatinine has improved with IV hydration. Repeat BMP tomorrow. (2) Acute urinary retention Is this a current diagnosis for this admission?: Yes Plan: She had 1300 cc of urine out after insertion of Ballard in the ER. She is unable to cooperate with bladder training. Will remove Ballard and do as needed straight catheterizations if she continues to have retention. Acute urinary retention is likely secondary to midodrine as this is the only home medication she takes that confers a significant risk for urinary retention especially in the elderly demented patient. This has not been resumed upon admission. Her blood pressures are running in the 140/80s. Will discontinue midodrine upon discharge. (3) Dehydration Is this a current diagnosis for this admission?: Yes Plan: Improving. Secondary to poor oral intake. Continue IV fluids. (4) IDDM (insulin dependent diabetes mellitus) Is this a current diagnosis for this admission?: Yes Plan: Continue sliding scale for now. (5) Hepatitis C Is this a current diagnosis for this admission?: Yes Plan: Solar Sales Representative And Assessor says patient has hepatitis C but patient did not comply with medications in the past. (6) Cognitive impairment Is this a current diagnosis for this admission?: Yes (7) Hypernatremia Is this a current diagnosis for this admission?: Yes Plan: Likely related to dehydration. Sodium remain elevated. Will continue IV fluids but will switch to D5W. Repeat BMP. (8) Hypercalcemia Is this a current diagnosis for this admission?: Yes Plan: Resolved. Likely secondary to dehydration. - Time Time Spent with patient: 15-24 minutes
[2018-03-17] MEDS: INSULIN LISPRO 100 UNIT/ML 3 ML VIAL SUBCUT PRN (21:36)
[2018-03-18] MEDS: HEPARIN SOD (PORCINE) 5,000 UNIT/ML 1 ML SYRINGE SUBCUT SCH (09:57)
[2018-03-18] MEDS: POLYETHYLENE GLYCOL 3350 POWDER 17 GM/1 PACKET PO SCH (09:58)
[2018-03-18] MEDS: INSULIN LISPRO 100 UNIT/ML 3 ML VIAL SUBCUT PRN (10:05)
[2018-03-18] MEDS ORDERED: BUSPIRONE HCL 10 MG TABLET PO ONE (10:17)
[2018-03-18] MEDS ORDERED: LEVETIRACETAM 500 MG TABLET PO ONE (10:17)
[2018-03-18] MEDS ORDERED: BISACODYL 10 MG SUPP.RECT PR ONE (10:30)
[2018-03-18] MEDS ORDERED: TAMSULOSIN HCL 0.4 MG CAP.SR.24H PO ONE (10:30)
--- NOTE | 2018-03-18 14:43 | PSYCHOLOGICAL NOTE ---
Psych Note - Psych Note Date seen by psych provider: 03/18/18 Time seen by psych provider: 14:00 Psych Note: Reason for Consult: Medication recommendations CHAZ ANDERSON is a 68 year old female with a past medical history of insulin dependent diabetes mellitus, untreated Hepatitis C infection, cognitive impairment and depression who was brought in due to worsening constipation and urinary retention. Clinician attempted to engage patient in evaluation however patient refused to engage. Patient is observed laying on her side in bed and looked up when clinician entered the room. Clinician introduced herself however patient refused to speak or acknowledge clinician. Patient was noted to make eye contact then lay her head back down and closed her eyes. Head CT conducted on 03/17/2018 with findings of areas of low density in the white matter most likely due to chronic microvascular ischemia change in addition to mild chronic changes of atrophy and prominent ventricles. Patient was seen by the behavioral health team on 11/18/2017 with similar presentation. During that time, the patient's family disclosed concern with increased confusion, wandering the neighborhood, knocking on doors and getting lost. The patient's granddaughter disclosed that the patient recently came back to live with her after living in over 10 homes the within a few weeks. The granddaughter reported she was worried she could not care for the patient. Medication recommendations per [facility]'s contracted psychiatrist Dr. Evans BILLY are as follows 1. Keppra 500 mg twice daily 2. BuSpar 10 mg twice daily 799.59 (R41.9) unspecified neurocognitive disorder per history Impression\plan: Patient is cleared from acute psychiatric services. Patient is diagnosed with dementia and is recommended to follow-up with neurology for continued care. Medication recommendations have been provided. Please re- consult with any new concerns. Dr. Arambula was consulted on the care and management of this patient; attending physician is in agreement with recommendations and disposition.
--- NOTE | 2018-03-18 17:36 | PDOC DISCHARGE SUMMARY ---
General - Admit/Disc Date/PCP Admission Date/Primary Care Provider: 03/17/18 15:03 BRYNN OLIVAS PA-C Discharge Date: 03/18/18 - Discharge Diagnosis (1) Acute renal failure Is this a current diagnosis for this admission?: Yes (2) Acute urinary retention Is this a current diagnosis for this admission?: Yes (3) Dehydration Is this a current diagnosis for this admission?: Yes (4) IDDM (insulin dependent diabetes mellitus) Is this a current diagnosis for this admission?: Yes (5) Hepatitis C Is this a current diagnosis for this admission?: Yes (6) Cognitive impairment Is this a current diagnosis for this admission?: Yes (7) Hypernatremia Is this a current diagnosis for this admission?: Yes (8) Hypercalcemia Is this a current diagnosis for this admission?: Yes - Additional Information Prescriptions: Bisacodyl [Dulcolax 10 mg Supp.rect] 10 mg VA DAILYP PRN #14 supp.rect PRN Reason: For Constipation Buspirone HCl [Buspar 10 mg Tablet] 10 mg PO BID #60 tablet Levetiracetam [Keppra] 250 mg PO BID #60 tablet Tamsulosin HCl [Flomax] 0.4 mg PO DAILY #30 cap.er.24h Home Medications: Insulin Detemir [Levemir Insulin 100 units/mL] 35 unit SUBCUT QHS 03/16/18 Insulin Regular, Human [Novolin R (Reg) Insulin 100 unit/mL] 0 unit SUBCUT .SLD SCALE 03/16/18 Bisacodyl [Dulcolax 10 mg Supp.rect] 10 mg VA DAILYP PRN #14 supp.rect 03/18/18 Buspirone HCl [Buspar 10 mg Tablet] 10 mg PO BID #60 tablet 03/18/18 Levetiracetam [Keppra] 250 mg PO BID #60 tablet 03/18/18 Tamsulosin HCl [Flomax] 0.4 mg PO DAILY #30 cap.er.24h 03/18/18 History of Present Illness History of Present Illness: CHAZ ANDERSON is a 68 year old female with a past medical history of insulin dependent diabetes mellitus, vascular dementia, untreated Hepatitis C infection , cognitive impairment and depression who was brought in due to worsening constipation and urinary retention. Patient refused to talk and history if obtained largely from sales person/DPOA ( [place]) who says patient has been having chronic constipation for more than a year. She also has chronic poor appetite and chronic cachexia. Wire Insulator says she started taking care of patient in January this year but met her first in May and she was already noted to be cachectic. Per sales person, she has not had any urine output and bowel movement as well in the past 3 days. In the ER, she was noted to have acute urinary retention and had 1300 cc of urine output. She was given enema and had one BM with non-bloody , non tarry stools. Wire Insulator says there has been 2 previous unsuccessful attempts for colonoscopies before (last one being in August 2017) to screen her for colon cancer but patient has always been noncompliant with prep. She also had an EGD in August which was reportedly unremarkable. She does deny chest pain, SOB, fever or chills. Hospital Course Hospital Course: CHAZ ANDERSON is a 68 year old female with a past medical history of insulin dependent diabetes mellitus, untreated Hepatitis C infection, dementia, cognitive impairment and depression who was brought in due to worsening constipation and acute urinary retention. She was found to be dehydrated, hypernatremic, hypokalemic and was noted to have an BUSHRA. Upon further questioning, patient's sales person (NIKHIL) recalls that patient was started on midodrine for low normal blood pressures 2 days prior to developing acute urinary retention. This was not resumed upon admission and was discontinued from the medlist. Her blood pressures have been running in the 140/ 80s without the midodrine. She had 1300 cc of urine out after insertion of Ballard in the ER. She was unable to cooperate with bladder training due to her dementia. Acute urinary retention is likely secondary to midodrine as this is the only home medication she takes that confers a significant risk for urinary retention especially in the elderly demented patient. She was also started on Flomax. Ballard was removed due to patient having previous history of UTI. Straight catheterization was done instead. She did continue to have retention. As there is no urology service in house, she was set up with outpatient urology in [place] for urodynamic testing. Wire Insulator was taught to do intermittent straight cath every 6-8 hrs at home. Her BUSHRA did improve significantly with fluids. Patient apparently has been evaluated by psych in November and was diagnosed with vascular dementia. Her CT imaging is also consistent with this. Psych recommended keppra and buspar for her mood issues as patient does have occasional episodes of agitation at home. Physical Exam Vital Signs: Temp Pulse Resp BP Pulse Ox 98.9 F 59 L 19 142/83 H 100 03/18/18 11:58 03/18/18 11:25 03/18/18 11:25 03/18/18 11:25 03/18/18 11:58 Intake & Output 03/17/18 03/18/18 03/19/18 06:59 06:59 06:59 Intake Total 218 100 Output Total 1800 550 Balance -1582 -450 Weight 74 lb 15.315 oz General appearance: PRESENT: no acute distress, thin Head exam: PRESENT: atraumatic, normocephalic Eye exam: PRESENT: conjunctiva pink, EOMI, PERRLA. ABSENT: scleral icterus Ear exam: PRESENT: normal external ear exam Mouth exam: PRESENT: moist, tongue midline Neck exam: ABSENT: carotid bruit, JVD, lymphadenopathy, thyromegaly Respiratory exam: PRESENT: clear to auscultation ming. ABSENT: rales, rhonchi, wheezes Cardiovascular exam: PRESENT: RRR. ABSENT: diastolic murmur, rubs, systolic murmur Pulses: PRESENT: normal dorsalis pedis pul GI/Abdominal exam: PRESENT: normal bowel sounds, soft. ABSENT: distended, guarding, mass, organolmegaly, rebound, tenderness Rectal exam: PRESENT: deferred Gentrourinary exam: PRESENT: other - pelvic exam: no gross cystocele or rectocele on inspection and on internal examination, no vaginal discharge Results Laboratory Results: 03/17/18 15:39 03/18/18 13:23 Stool Occult Blood POSITIVE Impressions: Abdomen/Pelvis CT 03/16/18 00:00 IMPRESSION: Cholelithiasis. Left hydronephrosis. Cannot exclude a stone in the distal left ureter. Acute Abdomen Series 03/16/18 13:43 IMPRESSION: Chronic lung changes. Nonspecific abdomen. Cannot exclude a pelvic mass. May represent bowel contents. No mass is seen on the CT done on . Head CT 03/17/18 00:00 IMPRESSION: MILD CHRONIC CHANGES OF ATROPHY AND MICROVASCULAR ISCHEMIA. NO ACUTE PROCESS. EVIDENCE OF ACUTE STROKE: NO. Qualifiers - * PATIENT BEING DISCHARGED WITH ANY OF THE FOLLOWING DIAGNOSIS: No
[2018-03-18 18:15] VITALS: BP 150/74
== END 2018-03-18 19:00 | disposition home health service (06) | DRG 683 ==
LOC: ER 13:19 → INTOOBSV 18:13 → EH 18:13 → 4S 21:10 → OBSVTOIN 03-17 15:03
PROVIDERS: ADMIT Internal Medicine; ATTEND Internal Medicine
DX: N17.9 Acute kidney failure, unspecified (principal); E87.0 Hyperosmolality and hypernatremia; R64 Cachexia; Z68.1 Body mass index [BMI] 19.9 or less, adult; E86.0 Dehydration; R33.9 Retention of urine, unspecified; E11.9 Type 2 diabetes mellitus without complications; B19.20 Unspecified viral hepatitis C without hepatic coma; G31.84 Mild cognitive impairment of uncertain or unknown etiology; E83.52 Hypercalcemia; F01.50 Vascular dementia, unspecified severity, without behavioral disturbance, psychotic disturbance, mood disturbance, and anxiety; F32.9 Major depressive disorder, single episode, unspecified; K80.20 Calculus of gallbladder without cholecystitis without obstruction; N13.30 Unspecified hydronephrosis; K59.09 Other constipation; E78.00 Pure hypercholesterolemia, unspecified; I10 Essential (primary) hypertension; K21.9 Gastro-esophageal reflux disease without esophagitis; D64.9 Anemia, unspecified; I95.9 Hypotension, unspecified; Z79.4 Long term (current) use of insulin; Z79.899 Other long term (current) drug therapy; Z90.710 Acquired absence of both cervix and uterus
CPT/HCPCS: 36415; 51702; 70450; 74022; 74176; 80048; 80053; 81001; 82272; 82550; 82553; 82570; 82962; 83036; 84300; 84439; 84443; 84481; 84484; 85025; 87086; 93005; 93010; 99285; G0378; G8978-GP; G8979-GP; G8980-GP; J1644; J1815; J3490; J7030; J7060

== ENCOUNTER 2018-03-26 14:11 | Emergency (ER) | payer MEDICARE, MEDICAID ==
--- NOTE | 2018-03-26 14:49 | ER Document Report ---
ED Fall - General Chief Complaint: Fall Injury Stated Complaint: FALL/HEAD INJURY Time Seen by Provider: 03/26/18 14:48 Notes: 68-year-old female patient brought in for evaluation of fall. Apparently lost her balance and fell backwards. Hit the back of her head. There was some bleeding at the time but has since been controlled. Patient was complaining of a headache as well as some right lower extremity pain. No other injuries. Patient able to ambulate. Patient has some underlying mental disability and has taken care of by a care provider. TRAVEL OUTSIDE OF THE [place] IN LAST 30 DAYS: No - HPI Occurred: Just prior to arrival Context: Lost balance Associated symptoms: None - Related data Allergies/Adverse Reactions: acetaminophen [From Vicodin] Allergy (Verified 03/26/18 14:48) hydrocodone [From Vicodin] Allergy (Verified 03/26/18 14:48) Past Medical History - Social History Smoking Status: Never Smoker Chew tobacco use (# tins/day): No Frequency of alcohol use: None Drug Abuse: None Lives with: Prison Family History: Reviewed & Not Pertinent Patient has suicidal ideation: No Patient has homicidal ideation: No - Past Medical History Cardiac Medical History: Reports: Hx Hypercholesterolemia, Hx Hypertension Pulmonary Medical History: Reports: Hx Asthma Endocrine Medical History: Reports: Hx Diabetes Mellitus Type 1 - on insulin, Hx Diabetes Mellitus Type 2 Renal/ Medical History: Denies: Hx Peritoneal Dialysis GI Medical History: Reports: Hx Gastroesophageal Reflux Disease, Hx Hepatitis Psychiatric Medical History: Reports: Hx Depression Infectious Medical History: Reports: Hx Hepatitis Past Surgical History: Reports: Hx Abdominal Surgery - Per patient., Hx Hysterectomy - Immunizations Hx Diphtheria, Pertussis, Tetanus Vaccination: No Review of Systems - Review of Systems Notes: Constitutional: denies: Chills, Diaphoresis, Fever, Malaise, Weakness EENT: denies: Eye discharge, Blurred vision, Tearing, Double vision, Nose congestion, Nose discharge, Throat swelling, Mouth pain Cardiovascular: denies: Palpitations, Heart racing, Orthopnea, Dyspnea, Chest pain Respiratory: denies: Cough, Hurts to breathe, Wheezing, Shortness of breath Gastrointestinal: denies: Abdominal pain, Diarrhea, Nausea, Vomiting, Black stools, bright red blood in stool Genitourinary: denies: Burning, Dysuria, Discharge, Frequency, Flank pain, Hematuria Musculoskeletal: denies: Joint pain, Joint swelling, Muscle pain, Muscle stiffness, back pain. Complaining of right lower extremity pain Hematologic/Lymphatic: denies: Anemia, Easy bleeding, Easy bruising, Blood clots Neurological/Psychological: denies: Confusion, Dementia, Depression, Loss of consciousness. Headache Skin: No lesions, no masses, no skin breakdown, no abscesses. Abrasion to back of head Physical Exam - Vital signs Vitals: Pulse Resp BP Pulse Ox 80 14 95/71 L 95 03/26/18 14:34 03/26/18 14:34 03/26/18 14:34 03/26/18 14:34 Interpretation: Normal - General General appearance: Appears well, Alert - HEENT Head: Normocephalic, Atraumatic Eyes: Normal Pupils: PERRL - Respiratory Respiratory status: No respiratory distress Chest status: Nontender Breath sounds: Normal Chest palpation: Normal - Cardiovascular Rhythm: Regular Heart sounds: Normal auscultation Murmur: No - Abdominal Inspection: Normal Distension: No distension Bowel sounds: Normal Tenderness: Nontender Organomegaly: No organomegaly - Back Back: Normal, Nontender - Extremities General upper extremity: Normal inspection, Nontender, Normal color, Normal ROM , Normal temperature General lower extremity: Normal inspection, Nontender, Normal color, Normal ROM , Normal temperature, Normal weight bearing. No: Noman's sign - Neurological Neuro grossly intact: Yes Cognition: Short term memory loss Lamont Coma Scale Eye Opening: Spontaneous [place] Coma Scale Verbal: Oriented [place] Coma Scale Motor: Obeys Commands [place] Coma Scale Total: 15 Speech: Normal Motor strength normal: LUE, RUE, LLE, RLE Sensory: Normal - Psychological Associated symptoms: Normal affect, Normal mood - Skin Skin Temperature: Warm Skin Moisture: Dry Skin Color: Normal, Other - Small contusion and abrasion on the back of the head at the occiput. Course - Re-evaluation Re-evalutation: 03/26/18 16:05 No obvious internal injuries or fractures. Will DC at this time. 03/26/18 16:05 - Vital Signs Vital signs: Temp Pulse Resp BP Pulse Ox 80 14 95/71 L 95 03/26/18 14:34 03/26/18 14:34 03/26/18 14:34 03/26/18 14:34 Discharge - Discharge Clinical Impression: Closed head injury Qualifiers: Encounter type: initial encounter Qualified Code(s): S09.90XA - Unspecified injury of head, initial encounter Lower extremity pain Qualifiers: Laterality: right Qualified Code(s): M79.604 - Pain in right leg Condition: Good Disposition: HOME, SELF-CARE Instructions: Head Injury Precautions ([facility]), Leg Pain Nonspecific ([facility]) Referrals: BRYNN OLIVAS PA-C [Primary Care Provider] - Follow up as needed
--- NOTE | 2018-03-26 15:30 | RADIOLOGY REPORT (SQ) ---
EXAM DESCRIPTION: CT HEAD WITHOUT COMPLETED DATE/TIME: 03/26/2018 3:19 pm REASON FOR STUDY: fall, ams, pain COMPARISON: 03/17/2018 TECHNIQUE: Axial images acquired through the brain without intravenous contrast. Images reviewed wi th bone, brain and subdural windows. Additional sagittal and coronal reconstructions were generated. Images stored on PACS. All CT scanners at this facility use dose modulation, iterative reconstruction, and/or weight based d osing when appropriate to reduce radiation dose to as low as reasonably achievable (ALARA). [facility]: Dose Right [facility]: CareDose [facility]: Dose Right [facility]: Teradose 4D [facility]: Smart [employer] RADIATION DOSE: CT Rad equipment meets quality standard of care and radiation dose reduction techniq ues were employed. CTDIvol: 53.2 mGy. DLP: 991 mGy-cm. mGy. LIMITATIONS: None. FINDINGS: VENTRICLES: Prominent. CEREBRUM: No masses. No hemorrhage. No midline shift. Areas of low density in the white matter mos t likely due to chronic micro-vascular ischemic change. No evidence for acute infarction. CEREBELLUM: No masses. No hemorrhage. No alteration of density. No evidence for acute infarction. EXTRAAXIAL SPACES: Mild age-related involutional change. No fluid collections. No masses. ORBITS AND GLOBE: No intra- or extraconal masses. Normal contour of globe without masses. CALVARIUM: No fracture. PARANASAL SINUSES: No fluid or mucosal thickening. SOFT TISSUES: No mass or hematoma. OTHER: No other significant finding. IMPRESSION: MILD CHRONIC CHANGES OF ATROPHY AND MICROVASCULAR ISCHEMIA. NO ACUTE PROCESS. EVIDENCE OF ACUTE STROKE: NO. TECHNICAL DOCUMENTATION: JOB ID: [id number] Quality ID # [id number]: Final reports with documentation of one or more dose reduction techniques (e.g., Au tomated exposure control, adjustment of the mA and/or kV according to patient size, use of iterative reconstruction technique) 2010 [employer]- All Rights Reserved Reading location - IP/workstation name: [email or web address]
--- NOTE | 2018-03-26 15:32 | RADIOLOGY REPORT (SQ) ---
EXAM DESCRIPTION: CT CERVICAL SPINE WITHOUT COMPLETED DATE/TIME: 03/26/2018 3:19 pm REASON FOR STUDY: fall, pain COMPARISON: None. TECHNIQUE: Axial images acquired through the cervical spine without intravenous contrast. Images re viewed with lung, soft tissue and bone windows. Reconstructed coronal and sagittal MPR images review ed. Images stored on PACS. All CT scanners at this facility use dose modulation, iterative reconstruction, and/or weight based d osing when appropriate to reduce radiation dose to as low as reasonably achievable (ALARA). [facility]: Dose Right [facility]: CareDose [facility]: Dose Right [facility]: Teradose 4D [facility]: Smart Technologies RADIATION DOSE: CT Rad equipment meets quality standard of care and radiation dose reduction techniq ues were employed. CTDIvol: 5.9 mGy. DLP: 140 mGy-cm. mGy. LIMITATIONS: None. FINDINGS: ALIGNMENT: Anatomic. MINERALIZATION: Normal. VERTEBRAL BODIES: No fractures or dislocation. DISCS: No significant disc disease. FACETS, LATERAL MASSES, POSTERIOR ELEMENTS: No fractures. No dislocation. No acute findings. HARDWARE: None in the spine. VISUALIZED RIBS: No fractures. LUNG APICES AND SOFT TISSUES: No significant or acute findings. OTHER: No other significant finding. IMPRESSION: NO ACUTE OR SIGNIFICANT FINDINGS IN THE CERVICAL SPINE. TECHNICAL DOCUMENTATION: JOB ID: [id number] Quality ID # [id number]: Final reports with documentation of one or more dose reduction techniques (e.g., Au tomated exposure control, adjustment of the mA and/or kV according to patient size, use of iterative reconstruction technique) 2010 [employer]- All Rights Reserved Reading location - IP/workstation name: [email or web address]
--- NOTE | 2018-03-26 15:37 | RADIOLOGY REPORT (SQ) ---
EXAM DESCRIPTION: FEMUR RIGHT COMPLETED DATE/TIME: 03/26/2018 3:28 pm REASON FOR STUDY: fall, pain COMPARISON: None. NUMBER OF VIEWS: Two views. TECHNIQUE: Two radiographic images acquired of the right femur to include hip and knee in at least o ne projection. LIMITATIONS: None. FINDINGS: MINERALIZATION: Osteopenia. BONES: No acute fracture. No worrisome bone lesions. SOFT TISSUES: No obvious swelling or foreign body. OTHER: No other significant finding. IMPRESSION: NEGATIVE STUDY OF THE RIGHT FEMUR. NO RADIOGRAPHIC EVIDENCE OF ACUTE INJURY. TECHNICAL DOCUMENTATION: JOB ID: [id number] [employer]- All Rights Reserved Reading location - IP/workstation name: [email or web address]
[2018-03-26 16:20] VITALS: BP 99/65
== END 2018-03-26 16:15 | disposition home or self-care (01) ==
LOC: ER 14:11
DX: S00.01XA Abrasion of scalp, initial encounter (principal); S09.90XA Unspecified injury of head, initial encounter; M79.604 Pain in right leg; W01.0XXA Fall on same level from slipping, tripping and stumbling without subsequent striking against object, initial encounter; E78.00 Pure hypercholesterolemia, unspecified; I10 Essential (primary) hypertension; E11.9 Type 2 diabetes mellitus without complications; Z88.6 Allergy status to analgesic agent; Z90.710 Acquired absence of both cervix and uterus
CPT/HCPCS: 70450; 72125; 99284

== ENCOUNTER 2018-06-18 20:07 | Emergency (ER) | payer MEDICARE, MEDICAID ==
--- NOTE | 2018-06-18 21:55 | ER Document Report ---
ED GI/ - General Chief Complaint: Vaginal Pain Stated Complaint: VAGINAL SWELLING Time Seen by Provider: 06/18/18 20:48 Primary Care Provider: BRYNN OLIVAS PA-C [Primary Care Provider] - 06/20/18 Notes: Patient is a 68-year-old female that comes to the emergency department for chief complaint of swelling in the general area. Patient has Alzheimer's, has a tax manager cpa at home with her, tax manager cpa perform bladder catheterization for the patient several times a day, she states that she has noticed that today the labia areas appeared to be puffy and swollen. Patient has not had a fever, vomiting, she had a normal bowel movement earlier, patient just had her urine checked with her provider from a catheterized sample and it was not infected. There is no other complaint. Mottle Lay Up Operator does state that she just changed the cream that was being used on the groin and rectal area 3 days ago. TRAVEL OUTSIDE OF THE [place] IN LAST 30 DAYS: No - Related Data Allergies/Adverse Reactions: acetaminophen [From Vicodin] Allergy (Verified 03/26/18 14:48) hydrocodone [From Vicodin] Allergy (Verified 03/26/18 14:48) Past Medical History - General Information source: Patient, Friend - Social History Smoking Status: Never Smoker Frequency of alcohol use: None Drug Abuse: None Lives with: Family Family History: Reviewed & Not Pertinent - Past Medical History Cardiac Medical History: Reports: Hx Hypercholesterolemia, Hx Hypertension Pulmonary Medical History: Reports: Hx Asthma Endocrine Medical History: Reports: Hx Diabetes Mellitus Type 2 Renal/ Medical History: Denies: Hx Peritoneal Dialysis GI Medical History: Reports: Hx Gastroesophageal Reflux Disease, Hx Hepatitis Psychiatric Medical History: Reports: Hx Depression Infectious Medical History: Reports: Hx Hepatitis Past Surgical History: Reports: Hx Abdominal Surgery - Per patient., Hx Hysterectomy - Immunizations Hx Diphtheria, Pertussis, Tetanus Vaccination: No Review of Systems - Review of Systems Constitutional: No symptoms reported EENT: No symptoms reported Cardiovascular: No symptoms reported Respiratory: No symptoms reported Gastrointestinal: No symptoms reported Genitourinary: No symptoms reported Female Genitourinary: See HPI Musculoskeletal: No symptoms reported Skin: See HPI Hematologic/Lymphatic: No symptoms reported Neurological/Psychological: No symptoms reported Physical Exam - Vital signs Vitals: Pulse Resp BP Pulse Ox 65 18 143/84 H 99 06/18/18 20:11 06/18/18 20:11 06/18/18 20:11 06/18/18 20:11 - Notes Notes: GENERAL: Alert, interacts well. No acute distress. HEAD: Normocephalic, atraumatic. EYES: Pupils equal, round, and reactive to light. Extraocular movements intact. ENT: Oral mucosa moist, tongue midline. Oropharynx unremarkable. Airway patent. Nares patent, no nasal septal hematoma, TM's intact. NECK: Full range of motion. Supple. Trachea midline. LUNGS: Clear to auscultation bilaterally, no wheezes, rales, or rhonchi. No respiratory distress. HEART: Regular rate and rhythm. No murmur ABDOMEN: Soft, non-tender. Non-distended. Bowel sounds present in all 4 quadrants. GENITOURINARY: There is some swelling of the labia majora, this is bilateral, however the area is not erythematous, tender, there is no induration or fluctuance, there is no noted a yeast component, no nearby lymphadenopathy, no noted tender nearby areas. EXTREMITIES: Moves all 4 extremities spontaneously. No edema, normal radial and dorsalis pedis pulses bilaterally. No cyanosis. BACK: no cervical, thoracic, lumbar midline tenderness. No saddle anesthesia, normal distal neurovascular exam. NEUROLOGICAL: Alert and oriented x3. Normal speech. [cranial nerves II through XII grossly intact]. PSYCH: Normal affect, normal mood. SKIN: Warm, dry, normal turgor. No rashes or lesions noted. Course - Re-evaluation Re-evalutation: No evidence of infection. Patient just started a new cream over the area, appears to be histamine related because I do not see any evidence of other abnormality. Patient does not react or complain with palpation over the general area. No fever, unremarkable vital signs. Patient just had a urinalysis which was normal with primary care. No other complaints. Discussed with Dr. Duran. Given a dose of antihistamines here, reevaluated, this actually did appear to be improving slightly. Definitely not worsening. Discussed with tax manager cpa. Patient will be placed on Claritin, discussed changing the cream back to the one the patient had no trouble with, discussed monitoring, follow-up, and return precautions in detail including any signs of infection. She states understanding and agreement with plan. - Vital Signs Vital signs: Temp Pulse Resp BP Pulse Ox 97.6 F 66 16 156/98 H 100 06/19/18 00:46 06/19/18 00:46 06/19/18 00:46 06/19/18 00:46 06/19/18 00:46 Discharge - Discharge Clinical Impression: Swelling of labia Condition: Stable Disposition: HOME, SELF-CARE Additional Instructions: Her examination shows localized swelling but no evidence of infection at this time. I recommend that you stop the new topical cream, give the Claritin as prescribed for the next week. Follow-up closely with primary care for recheck and additional management. Return if she worsens including developing or spreading redness, increased swelling, fever, or any other concerning or worsening symptoms. Prescriptions: Loratadine [Claritin] 10 mg PO DAILY #30 capsule Referrals: BRYNN OLIVAS PA-C [Primary Care Provider] - 06/20/18
[2018-06-18] MEDS ORDERED: DIPHENHYDRAMINE HCL 50 MG/ML VIAL IM ONE (22:02)
[2018-06-19 00:47] VITALS: BP 156/98
== END 2018-06-19 01:50 | disposition home or self-care (01) ==
LOC: ER 20:07
DX: N89.8 Other specified noninflammatory disorders of vagina (principal); R10.2 Pelvic and perineal pain; I10 Essential (primary) hypertension; E11.9 Type 2 diabetes mellitus without complications; J45.909 Unspecified asthma, uncomplicated
CPT/HCPCS: 99283; J1200

== ENCOUNTER 2018-06-22 11:24 | Emergency (ER) | payer MEDICARE, MEDICAID ==
--- NOTE | 2018-06-22 14:00 | ER Document Report ---
ED Blood Sugar Problem - General Chief Complaint: Low Blood Sugar Stated Complaint: ALTERED MENTAL STATUS Time Seen by Provider: 06/22/18 12:22 Primary Care Provider: BRYNN OLIVAS PA-C [Primary Care Provider] - Follow up in 3-5 days TRAVEL OUTSIDE OF THE [place] IN LAST 30 DAYS: No - HPI Notes: Patient is a 68-year-old female that presents to the emergency department for chief complaint of hypoglycemia. Home health aide called EMS when patient became unresponsive at home. EMS states she was not responding to verbal or painful stimuli when they arrived. She was hypoglycemic with a blood sugar of 63. EMS administered 1 mg of glucagon which improved patient's mentation. Patient is reportedly nonverbal at baseline. Her family was present in the emergency room and stated this is how she normally functions. Patient is an insulin-dependent diabetic. She is not on any long-acting oral medications for her diabetes. Patient is awake and following some commands. She is not verbalizing anything to myself or staff which limits HPI. Past Medical History: Insulin-dependent diabetes Past Surgical History: Reviewed in chart Social History: Reviewed in chart Family History: Reviewed and noncontributory for presenting illness Allergies: Reviewed, see documented allergy list. REVIEW OF SYSTEMS: Unable to obtain because of patient's nonverbal state PHYSICAL EXAMINATION: Vital signs reviewed, nursing noted reviewed. GENERAL: Well-appearing, well-nourished and in no acute distress. HEAD: Atraumatic, normocephalic. EYES: Eyes appear normal, extraocular movements intact, sclera anicteric, conjunctiva are normal. ENT: nares patent, oropharynx clear without exudates. Moist mucous membranes. NECK: Normal range of motion, supple without lymphadenopathy LUNGS: Breath sounds clear to auscultation bilaterally and equal. No wheezes rales or rhonchi. HEART: Regular rate and rhythm without murmurs ABDOMEN: Soft, nontender, normoactive bowel sounds. No rebound, guarding, or rigidity. No masses appreciated. EXTREMITIES: Nontender, good range of motion, no pitting or edema. NEUROLOGICAL: No focal neurological deficits. Moves all extremities spontane ously Motor and sensory grossly intact on exam. PSYCH: Normal mood, normal affect. SKIN: Warm, Dry, normal turgor, no rashes or lesions noted on exposed skin - Related Data Allergies/Adverse Reactions: acetaminophen [From Vicodin] Allergy (Verified 11/17/18 14:48) hydrocodone [From Vicodin] Allergy (Verified 03/26/18 14:48) Past Medical History - Social History Smoking Status: Unknown if Ever Smoked Family History: Reviewed & Not Pertinent Patient has suicidal ideation: No Patient has homicidal ideation: No - Past Medical History Cardiac Medical History: Reports: Hx Hypercholesterolemia, Hx Hypertension Pulmonary Medical History: Reports: Hx Asthma Endocrine Medical History: Reports: Hx Diabetes Mellitus Type 1 - on insulin, Hx Diabetes Mellitus Type 2 Renal/ Medical History: Denies: Hx Peritoneal Dialysis GI Medical History: Reports: Hx Gastroesophageal Reflux Disease, Hx Hepatitis Psychiatric Medical History: Reports: Hx Depression Infectious Medical History: Reports: Hx Hepatitis Past Surgical History: Reports: Hx Abdominal Surgery - Per patient., Hx Hysterectomy - Immunizations Hx Diphtheria, Pertussis, Tetanus Vaccination: No Physical Exam - Vital signs Vitals: Temp Pulse Resp BP Pulse Ox 97.8 F 60 16 163/80 H 100 06/22/18 11:35 06/22/18 11:35 06/22/18 11:35 06/22/18 11:35 06/22/18 11:35 Course - Re-evaluation Re-evalutation: 06/22/18 14:00 Vitals reviewed. Nursing notes reviewed. Patient's [id number] glucose was stable when she arrived. She is drinking Pepsi and is mentating appropriately. She is at baseline per family. She has home health that assist her with medication administration and there is no report of change in her medication. Family does not believe that she has had an increased dose. Family did states she has had poor p.o. intake for the last few days which was not abnormal for her. She usually drinks Ensure. Patient will be monitored for repeat hypoglycemia in the ED. She is currently stable. 06/22/18 14:28 Patient reevaluated. She is sitting up and drinking soda. She has not had any repeat hypoglycemia. Patient will be discharged home to the care of home health and family. Laboratory 06/22/18 06/22/18 06/22/18 12:01 13:19 13:39 POC Glucose 110 92 83 06/22/18 13:56 POC Glucose 87 - Vital Signs Vital signs: Temp Pulse Resp BP Pulse Ox 97.8 F 60 16 163/80 H 100 06/22/18 11:35 06/22/18 11:35 06/22/18 11:35 06/22/18 11:35 06/22/18 11:35 Discharge - Discharge Clinical Impression: Hypoglycemia Condition: Stable Disposition: HOME, SELF-CARE Instructions: Hypoglycemia ([facility]) Additional Instructions: Please return to the emergency department if you have any worsening, or concern of your symptoms. Please return to the emergency department if you develop chest pain, difficulty breathing, severe abdominal pain, or ongoing vomiting. Please follow-up with your primary care physician in 2-3 days and any other recommended physicians. If prescribed, take all medications as directed. If you have any questions or concerns do not hesitate to return the emergency department for evaluation. Referrals: BRYNN OLIVAS PA-C [Primary Care Provider] - Follow up in 3-5 days
[2018-06-22 18:01] VITALS: BP 151/88
== END 2018-06-22 18:02 | disposition home or self-care (01) ==
LOC: ER 11:24
DX: E10.649 Type 1 diabetes mellitus with hypoglycemia without coma (principal); R41.82 Altered mental status, unspecified; Z79.4 Long term (current) use of insulin; I10 Essential (primary) hypertension; J45.909 Unspecified asthma, uncomplicated
CPT/HCPCS: 82962; 99285

== ENCOUNTER 2018-06-24 11:10 | Emergency (ER) | payer MEDICARE, MEDICAID ==
[2018-06-24] MEDS ORDERED: DEXTROSE 50%-WATER 25 GM/50 ML DISP.SYRIN IV ONE (11:58)
--- NOTE | 2018-06-24 12:04 | ER Document Report ---
ED General - General Chief Complaint: Decreased Appetite Stated Complaint: WEAKNESS Time Seen by Provider: 06/24/18 11:18 Primary Care Provider: BRYNN OLIVAS PA-C [Primary Care Provider] - Follow up as needed Notes: Patient is a 68-year-old female seen here yesterday for the same problem presents to the emergency department for chief complaint of hypoglycemia. Patient did not open eyes to noxious stimulus and is nonverbal at baseline. She did follow commands by squeezing my fingers with her left upper extremity and and wiggled her toes and her bilateral lower extremities. She was hypoglycemic with a blood sugar of 71. Patient is reportedly nonverbal at baseline. Patient is an insulin-dependent diabetic. She is not on any long-acting oral medications for her diabetes. Patient would not open her eyes and is nonverbal severely limiting HPI. TRAVEL OUTSIDE OF THE [place] IN LAST 30 DAYS: No - Related Data Allergies/Adverse Reactions: acetaminophen [From Vicodin] Allergy (Verified 06/24/18 12:05) hydrocodone [From Vicodin] Allergy (Verified 06/24/18 12:05) Past Medical History - Social History Smoking Status: Unknown if Ever Smoked Family History: Reviewed & Not Pertinent Patient has suicidal ideation: No Patient has homicidal ideation: No - Past Medical History Cardiac Medical History: Reports: Hx Hypercholesterolemia, Hx Hypertension Pulmonary Medical History: Reports: Hx Asthma Endocrine Medical History: Reports: Hx Diabetes Mellitus Type 1 - on insulin, Hx Diabetes Mellitus Type 2 Renal/ Medical History: Denies: Hx Peritoneal Dialysis GI Medical History: Reports: Hx Gastroesophageal Reflux Disease, Hx Hepatitis Psychiatric Medical History: Reports: Hx Depression Infectious Medical History: Reports: Hx Hepatitis Past Surgical History: Reports: Hx Abdominal Surgery - Per patient., Hx Hysterectomy - Immunizations Hx Diphtheria, Pertussis, Tetanus Vaccination: No Review of Systems - Review of Systems -: Yes ROS unobtainable due to patient's medical condition - Patient nonverbal at baseline Physical Exam - Vital signs Vitals: Resp BP Pulse Ox 14 157/93 H 100 06/24/18 11:17 06/24/18 11:17 06/24/18 11:17 - Notes Notes: PHYSICAL EXAMINATION: Reviewed vital signs and charting by RN GENERAL: Cachectic, not interactive, does not open eyes to noxious stimulus did no acute distress. HEAD: Normocephalic, atraumatic. EYES: Pupils equal, round, and reactive to light. Extraocular movements intact as patient tried NOT allowing me to assess pupillary response to light. ENT: Oral mucosa moist NECK: Supple. Trachea midline. LUNGS: Clear to auscultation bilaterally, no wheezes, rales, or rhonchi. No respiratory distress. HEART: Sinus bradycardia. No murmur ABDOMEN: soft, non-tender. Non-distended. Bowel sounds present in all 4 quadrants. NEUROLOGICAL: Patient poorly responsive but did follow commands when asked. GCS E1 V1 M6 = 8. Of note patient is nonverbal at baseline and it does appear that patient was not being very cooperative during exam. SKIN: Warm, dry, normal turgor. No rashes or lesions noted. Course - Re-evaluation Re-evalutation: 06/24/18 12:04 Cachectic 68 female presents for hypoglycemia. She was seen here yesterday for the same problem. Of note, nurse mentioned that daughter stated she is trying to get her placed in a group home and is awaiting placement and, in the interim, states that she will just keep calling 911 and have her mom come to the emergency department. Plan is to get some basic blood work and give her 1 amp of dextrose. Will reassess. 06/24/18 15:16 Spoke with caregiver at the bedside. Her concern is that if the patient keeps getting hypoglycemic what is she supposed to do she can just keep bring her back to the hospital. I told her that she can give her oral glucose if she does get hypoglycemic. I will provide a prescription for that. She does provide Accu- Cheks - Vital Signs Vital signs: Temp Pulse Resp BP Pulse Ox 94.8 F L 12 173/83 H 100 06/24/18 11:46 06/24/18 14:31 06/24/18 14:31 06/24/18 14:31 - Laboratory Result Diagrams: 06/24/18 14:15 06/24/18 13:29 Laboratory results interpreted by me: 06/24/18 06/24/18 06/24/18 11:46 12:46 13:29 WBC RBC Hgb Hct RDW Chloride 108 H Anion Gap 3 L BUN 21 H Glucose 145 H POC Glucose 65 L 134 H AST 47 H Alkaline Phosphatase 151 H Total Protein 5.4 L Albumin 2.5 L 06/24/18 14:15 WBC 3.8 L RBC 3.41 L Hgb 10.2 L Hct 30.8 L RDW 14.1 H Chloride Anion Gap BUN Glucose POC Glucose AST Alkaline Phosphatase Total Protein Albumin Discharge - Discharge Clinical Impression: Hypoglycemia Condition: Good Disposition: HOME, SELF-CARE Additional Instructions: You are seen in the emergency department this afternoon for low blood sugar. He responded well and gave you the sugar 3 or IV. It is very important that you try to eat 2 or 3 times a day. At least try to drink your insurance. We have provided a prescription for glucose paste that can be given if blood sugar is low. If patient becomes unconscious, stops breathing, has altered mental status, or you have any other concerns please merely return to the emergency department. Referrals: BRYNN OLIVAS PA-C [Primary Care Provider] - Follow up as needed
[2018-06-24 14:26] LABS: HEMATOCRIT 30.8 % (36.0-47.0); HEMOGLOBIN 10.2 g/dL (12.0-15.5); MEAN CORPUSCULAR HEMOGLOBIN 29.8 pg (27.0-33.4); MEAN CORPUSCULAR HGB CONC 32.9 g/dL (32.0-36.0); MEAN CORPUSCULAR VOLUME 91 fl (80-97); PLATELET COUNT 224 10^3/uL (150-450); RED BLOOD COUNT 3.41 10^6/uL (3.72-5.28); RED CELL DISTRIBUTION WIDTH 14.1 % (11.5-14.0); WHITE BLOOD COUNT 3.8 10^3/uL (4.0-10.5)
[2018-06-24 15:00] LABS: ALANINE AMINOTRANSFERASE 40 U/L (9-52); ALBUMIN 2.5 g/dL (3.5-5.0); ALKALINE PHOSPHATASE 151 U/L (38-126); ASPARTATE AMINO TRANSFERASE 47 U/L (14-36); BILIRUBIN,DIRECT 0.4 mg/dL (0.0-0.4); BILIRUBIN,TOTAL 0.5 mg/dL (0.2-1.3); BLOOD UREA NITROGEN 21 mg/dL (7-20); CALCIUM 9.3 mg/dL (8.4-10.2); GLUCOSE 145 mg/dL (75-110); POTASSIUM 3.9 mmol/L (3.6-5.0); TOTAL PROTEIN 5.4 g/dL (6.3-8.2)
[2018-06-24 15:05] LABS: CARBON DIOXIDE 29 mmol/L (22-30); CHLORIDE 108 mmol/L (98-107); SODIUM 139.7 mmol/L (137-145)
[2018-06-24 15:09] LABS: ANION GAP 3 (5-19)
[2018-06-24 15:32] LABS: ABSOLUTE LYMPHOCYTES# (MANUAL) 2.8 10^3/uL (0.5-4.7); ABSOLUTE MONOCYTES # (MANUAL) 0.2 10^3/uL (0.1-1.4); ABSOLUTE NEUTROPHILS# (MANUAL) 0.8 10^3/uL (1.7-8.2); BAND NEUTROPHILS % (MANUAL) 1 % (3-5); BASOPHILS % (MANUAL) 0 % (0-2); EOSINOPHILS % (MANUAL) 0 % (0-6); HYPOCHROMASIA 1+; LYMPHOCYTES % (MANUAL) 72 % (13-45); MONOCYTES % (MANUAL) 6 % (3-13); PLATELET CLUMPS PRESENT; POLYCHROMASIA SLIGHT; SEGMENTED NEUTROPHILS % (MAN) 19 % (42-78); TOTAL CELLS COUNTED 100
[2018-06-24 16:04] VITALS: BP 170/88
== END 2018-06-24 16:23 | disposition home or self-care (01) ==
LOC: ER 11:10
DX: E11.649 Type 2 diabetes mellitus with hypoglycemia without coma (principal); Z79.4 Long term (current) use of insulin; J45.909 Unspecified asthma, uncomplicated; I10 Essential (primary) hypertension; Z88.5 Allergy status to narcotic agent; Z88.6 Allergy status to analgesic agent
CPT/HCPCS: 99284; 96374; 36415; 82962; 85025; 80053; J3490

== ENCOUNTER 2018-06-26 09:28 | Inpatient (IN) | payer MEDICARE, MEDICAID ==
[2018-06-26] MEDS ORDERED: DEXTROSE 50%-WATER 25 GM/50 ML DISP.SYRIN IV ONE (09:36)
--- NOTE | 2018-06-26 10:16 | ER Document Report ---
ED General - General Stated Complaint: WEAKNESS Time Seen by Provider: 06/26/18 09:45 Mode of Arrival: Medic Information source: Emergency Med Personnel, [facility] Records Notes: This is a 68-year-old female with a history of dementia, diabetes and hepatitis C. Patient is brought in by EMS because of altered mental status in the setting of hypoglycemia. This is the fourth visit to the emergency room in the past week. EMS also reports that the patient had some swelling of the tongue and had recently had some swelling in the vaginal area. TRAVEL OUTSIDE OF THE [place] IN LAST 30 DAYS: No - HPI Onset: Last week Onset/Duration: Gradual Quality of pain: No pain Severity: None Pain Level: Denies Associated symptoms: denies: Chest pain, Fever, Shortness of breath Exacerbated by: Denies Relieved by: Denies Similar symptoms previously: Yes Recently seen / treated by doctor: Yes - Related Data Allergies/Adverse Reactions: acetaminophen [From Vicodin] Allergy (Verified 06/24/18 12:05) hydrocodone [From Vicodin] Allergy (Verified 06/24/18 12:05) Past Medical History - General Information source: Friend - Director Pediatric, [facility] Records - Social History Smoking Status: Unknown if Ever Smoked Cigarette use (# per day): No Chew tobacco use (# tins/day): No Frequency of alcohol use: None Drug Abuse: None Lives with: Family Family History: Reviewed & Not Pertinent Patient has suicidal ideation: No Patient has homicidal ideation: No - Past Medical History Cardiac Medical History: Reports: Hx Hypercholesterolemia, Hx Hypertension Pulmonary Medical History: Reports: Hx Asthma Endocrine Medical History: Reports: Hx Diabetes Mellitus Type 1 - on insulin, Hx Diabetes Mellitus Type 2 Renal/ Medical History: Denies: Hx Peritoneal Dialysis GI Medical History: Reports: Hx Gastroesophageal Reflux Disease, Hx Hepatitis Psychiatric Medical History: Reports: Hx Depression Infectious Medical History: Reports: Hx Hepatitis Past Surgical History: Reports: Hx Abdominal Surgery - Per patient., Hx Hysterectomy - Immunizations Hx Diphtheria, Pertussis, Tetanus Vaccination: No Review of Systems - Review of Systems Constitutional: denies: Chills, Fever EENT: See HPI Cardiovascular: denies: Chest pain, Palpitations, Heart racing Respiratory: denies: Cough, Short of breath Gastrointestinal: denies: Abdominal pain, Constipation Genitourinary: No symptoms reported Female Genitourinary: No symptoms reported Musculoskeletal: No symptoms reported Skin: See HPI Hematologic/Lymphatic: No symptoms reported Neurological/Psychological: See HPI Physical Exam - Vital signs Vitals: Resp Pulse Ox 16 98 06/26/18 09:38 06/26/18 09:38 Notes: Physical exam: GENERAL: This is a cachectic, nonverbal 68-year-old female with dementia who is in no acute distress, her eyes are open and she does moan. Her temperature is 9 3.1 rectally (checked 3 times). HEAD: Atraumatic, normocephalic. Propecia. EYES: Pupils equal round and reactive to light, extraocular movements intact, sclera anicteric, conjunctiva are normal. ENT: oropharynx: Patient does not have any tongue swelling currently. She does have a small cut on the left side of her lip which is bleeding. Dry mucous membranes. NECK: There are no masses, there are no skin lesions, she does have some amount of stiffness from contracture. LUNGS: Breath sounds clear to auscultation bilaterally and equal. No wheezes rales or rhonchi. HEART: Regular rate and rhythm without murmurs, rubs or gallops. ABDOMEN: Soft, normoactive bowel sounds. No tenderness to palpation. No guarding, no rebound. No masses appreciated. Back: Patient has superficial breakdown in the sacral area Vaginal area: There is no swelling to the labia majora Rectal: No mass lesions. Rectal temperature 93.1. Stool is brown (it is heme positive). EXTREMITIES: Contracture NEUROLOGICAL: Patient does have baseline dementia. She is nonverbal. Her eyes are open. PSYCH: Normal mood, normal affect. SKIN: Warm, Dry, normal turgor, no rashes or lesions noted. Course - Re-evaluation Re-evalutation: 06/26/18 12:59 Note: Patient is presenting with recurrent episodes of hypoglycemia. She is noted to be hypothermic. Blood and urine cultures were sent. Chest x-ray shows no obvious infiltrate. Patient was started on IV ceftriaxone. UA does show some bacteriuria. Plan is for admission. - Vital Signs Vital signs: Temp Pulse Resp BP Pulse Ox 94.7 F L 79 14 101/65 100 06/26/18 18:40 06/26/18 18:40 06/26/18 18:40 06/26/18 18:40 02/17/19 18:40 - Laboratory Result Diagrams: 06/26/18 09:47 06/26/18 09:47 Laboratory results interpreted by me: 06/26/18 06/26/18 06/26/18 09:47 09:47 09:47 Hgb 11.6 L Hct 35.5 L RDW 14.2 H Seg Neuts % (Manual) 19 L Lymphocytes % (Manual) 74 H Abs Neuts (Manual) 0.8 L Creatinine 0.50 L Glucose 74 L AST 68 H Alkaline Phosphatase 179 H Albumin 3.0 L Free T3 pg/mL 2.15 L Urine Glucose (UA) Urine Blood 06/26/18 10:10 Hgb Hct RDW Seg Neuts % (Manual) Lymphocytes % (Manual) Abs Neuts (Manual) Creatinine Glucose AST Alkaline Phosphatase Albumin Free T3 pg/mL Urine Glucose (UA) 50 H Urine Blood SMALL H - Diagnostic Test Radiology reviewed: Image reviewed, Reports reviewed - Chest x-ray shows no infiltrates. CT of the head shows no acute intracranial process Critical Care Note - Critical Care Note Total time excluding time spent on procedures (mins): 60 Discharge - Discharge Clinical Impression: Hypoglycemia, Hypothermia Condition: Stable Disposition: ADMITTED INPATIENT Admitting Provider: Estebanist - Kimber[facility] Unit Admitted: [facility]
[2018-06-26 10:32] LABS: HEMATOCRIT 35.5 % (36.0-47.0); HEMOGLOBIN 11.6 g/dL (12.0-15.5); MEAN CORPUSCULAR HEMOGLOBIN 29.6 pg (27.0-33.4); MEAN CORPUSCULAR HGB CONC 32.5 g/dL (32.0-36.0); MEAN CORPUSCULAR VOLUME 91 fl (80-97); PLATELET COUNT 267 10^3/uL (150-450); RED CELL DISTRIBUTION WIDTH 14.2 % (11.5-14.0); WHITE BLOOD COUNT 4.1 10^3/uL (4.0-10.5)
[2018-06-26 10:38] LABS: ALANINE AMINOTRANSFERASE 40 U/L (9-52); ALKALINE PHOSPHATASE 179 U/L (38-126); ANION GAP 7 (5-19); ASPARTATE AMINO TRANSFERASE 68 U/L (14-36); BILIRUBIN,DIRECT 0.4 mg/dL (0.0-0.4); BILIRUBIN,TOTAL 0.6 mg/dL (0.2-1.3); BLOOD UREA NITROGEN 19 mg/dL (7-20); CALCIUM 9.3 mg/dL (8.4-10.2); CARBON DIOXIDE 30 mmol/L (22-30); CHLORIDE 104 mmol/L (98-107); GLUCOSE 74 mg/dL (75-110); POTASSIUM 4.1 mmol/L (3.6-5.0); SODIUM 140.7 mmol/L (137-145); TOTAL PROTEIN 6.4 g/dL (6.3-8.2)
[2018-06-26] MEDS ORDERED: CEFTRIAXONE 1 GM/D5W RTU 1 GM/50 ML RTUPB IV ONE (10:54)
[2018-06-26 10:56] LABS: ABSOLUTE MONOCYTES # (MANUAL) 0.1 10^3/uL (0.1-1.4); ABSOLUTE NEUTROPHILS# (MANUAL) 0.8 10^3/uL (1.7-8.2); BASOPHILS % (MANUAL) 2 % (0-2); EOSINOPHILS % (MANUAL) 2 % (0-6); MONOCYTES % (MANUAL) 3 % (3-13); SEGMENTED NEUTROPHILS % (MAN) 19 % (42-78); TOTAL CELLS COUNTED 100
[2018-06-26 10:57] LABS: ANISOCYTOSIS SLIGHT; OVALOCYTES SLIGHT; PLATELET CLUMPS PRESENT; PLATELET COMMENT ADEQUATE; POIKILOCYTOSIS SLIGHT; TARGET CELLS SLIGHT
[2018-06-26 10:58] LABS: LYMPHOCYTES % (MANUAL) 74 % (13-45)
[2018-06-26 11:10] LABS: APPEARANCE,URINE SLIGHTLY-CLOUDY; BILIRUBIN,URINE NEGATIVE (NEGATIVE); COLOR,URINE YELLOW; GLUCOSE, URINE 50 mg/dL (NEGATIVE); KETONES,URINE NEGATIVE (NEGATIVE); LEUKOCYTE ESTERASE,URINE NEGATIVE (NEGATIVE); NITRITE,URINE NEGATIVE (NEGATIVE); PROTEIN,URINE NEGATIVE (NEGATIVE); URINE SPECIFIC GRAVITY 1.011; UROBILINOGEN,URINE NEGATIVE mg/dL (<2.0)
[2018-06-26 11:30] LABS: FREE T3 2.15 pg/mL (2.77-5.27); FREE T4 (FREE THYROXINE) 1.54 ng/dL (0.78-2.19)
[2018-06-26 11:43] LABS: THYROID STIMULATING HORMONE 3.59 uIU/mL (0.47-4.68)
--- NOTE | 2018-06-26 12:15 | RADIOLOGY REPORT (SQ) ---
EXAM DESCRIPTION: CHEST SINGLE VIEW COMPLETED DATE/TIME: 06/26/2018 11:07 am REASON FOR STUDY: dec responsiveness COMPARISON: Chest x-ray 11/23/2017. EXAM PARAMETERS: NUMBER OF VIEWS: One view. TECHNIQUE: Single frontal radiographic view of the chest acquired. RADIATION DOSE: NA LIMITATIONS: None. FINDINGS: LUNGS AND PLEURA: No consolidation, pneumothorax or pleural effusion. MEDIASTINUM AND HILAR STRUCTURES: No masses. Contour normal. HEART AND VASCULAR STRUCTURES: Heart normal in size. Normal vasculature. BONES: No acute findings. HARDWARE: None in the chest. IMPRESSION: NO ACUTE RADIOGRAPHIC FINDING IN THE CHEST. TECHNICAL DOCUMENTATION: JOB ID: [id number] [employer]- All Rights Reserved Reading location - IP/workstation name: [email or web address]
--- NOTE | 2018-06-26 12:31 | RADIOLOGY REPORT (SQ) ---
EXAM DESCRIPTION: CT HEAD WITHOUT COMPLETED DATE/TIME: 06/26/2018 11:47 am REASON FOR STUDY: encephalopathy COMPARISON: CT head 03/26/2018, 03/17/2018. TECHNIQUE: Axial images acquired through the brain without intravenous contrast. Images reviewed wi th bone, brain and subdural windows. Images stored on PACS. All CT scanners at this facility use dose modulation, iterative reconstruction, and/or weight based d osing when appropriate to reduce radiation dose to as low as reasonably achievable (ALARA). [facility]: Dose Right [facility]: CareDose [facility]: Dose Right [facility]: Teradose 4D [facility]: [employer] RADIATION DOSE: CT Rad equipment meets quality standard of care and radiation dose reduction techniq ues were employed. CTDIvol: 53.2 mGy. DLP: 1044 mGy-cm.mGy. LIMITATIONS: None. FINDINGS: VENTRICLES: Prominent. CEREBRUM: No mass effect. No hemorrhage. No midline shift. Areas of low density in the white matte r most likely due to chronic micro-vascular ischemic change. No evidence for acute territorial infar ction. CEREBELLUM: No hemorrhage. No alteration of density. No evidence for acute infarction. EXTRAAXIAL SPACES: Age-related involutional change. No fluid collections. ORBITS AND GLOBE: Symmetrical contour of the globes. CALVARIUM: No depressed fracture. PARANASAL SINUSES: No air-fluid level. SOFT TISSUES: No hematoma. IMPRESSION: CHRONIC CHANGES OF ATROPHY AND MICROVASCULAR ISCHEMIA. NO ACUTE PROCESS. EVIDENCE OF ACUTE STROKE: NO. TECHNICAL DOCUMENTATION: JOB ID: [id number] Quality ID # [id number]: Final reports with documentation of one or more dose reduction techniques (e.g., Au tomated exposure control, adjustment of the mA and/or kV according to patient size, use of iterative reconstruction technique) 2010 [email or web address]- All Rights Reserved Reading location - IP/workstation name: [email or web address]
[2018-06-26] MEDS ORDERED: VANCOMYCIN HCL 0 MG in DEXTROSE 5%-WATER 250 ML IV NR (13:45)
[2018-06-26] MEDS ORDERED: IPRATROPIUM/ALBUTEROL 0.5-2.5 MG/3 ML AMPUL NEB PRN (13:48)
[2018-06-26] MEDS ORDERED: LEVALBUTEROL HCL NEB 1.25 MG/3 ML AMPUL NEB PRN (13:48)
[2018-06-26] MEDS ORDERED: ACETAMINOPHEN 650 MG SUPP.RECT PR PRN (13:48)
[2018-06-26] MEDS ORDERED: MAGNESIUM HYDROXIDE SUSP 30 ML UDCUP PO PRN (13:53)
[2018-06-26] MEDS ORDERED: HYDRALAZINE HCL INJ/PF 20 MG/1 ML SDV IV ONE (14:18)
[2018-06-26] MEDS ORDERED: HYDRALAZINE HCL INJ/PF 20 MG/1 ML SDV IV PRN (14:18)
--- NOTE | 2018-06-26 15:58 | PDOC H&P ---
Addendum entered and electronically signed by OLI BERNAL NP-C 06/26/18 17:23: Provider Note Provider Note: Addendum: Additional Subjective: Met with the patient's caregiver and reported POA (she has been asked to present to her POA paperwork), Ms. Rama Pineda, who informs me that the patient has not received any insulin in nearly a month as her blood sugars have been "well regulated because of her poor appetite." Ms. Pineda states the patient is entirely diet controlled with bgl averaging in the low 90s. She reports that she began noting hypoglycemia events approximately 1 week ago that have begun occurring more frequently and becoming more difficult to manage through oral routes (has been attempting to correct at home with orange juice mixed with sugar). Other than associated fatigue and altered mental status, the patient has not demonstrated any symptoms of acute illness. At baseline, the patient is alert and orientated to self and place. She is intermittently conversational, "when she chooses to be," but capable of speaking clearly. She does require assistance for transfers and ambulation. Ms. Pineda denies noting recent fevers, chills, headaches, dizziness, chest pain, shortness of breath, cough, abdominal pain, nausea, or vomiting. She provides straight caths q 8 hrs and has not noted cloudy or foul smelling urine. She does report that the patient's stools have been "soft and foul" but would not call them watery. Adjustment to Plan: Will assess Random and AM cortisol levels, insulin level, proinsulin, c-peptide, and beta-hydroxybutyrate. Continue D5NS @ 75ml/hr. Accu-Cheks every 6 hours with hypoglycemia protocols. Blood and Urine cultures are pending; low threshold for broad spectrum antibiotics. Continue Agapito hugger for temperature regulation. Discussed with Ms Pineda that I am concerned that the patient may be demonstrating possible end of life symptoms; that she is too frail and thin to be able to regulate temperature and glucose. Ms. Pineda expressed understanding and even commented on the patient's dementia. However, she asserts that the patient is to remain a FULL CODE. Will consult palliative care. Original Note: History of Present Illness Admission Date/PCP: 06/26/18 13:38 BRYNN OLIVAS PA-C Patient complains of: AMS History of Present Illness: CHAZ ANDERSON is a 68 year old female a known past medical history of insulin- dependent diabetes mellitus, untreated chronic hepatitis C, depression, and dementia (patient is nonverbal at baseline) who presented to the emergency department today via EMS for complaint of altered mental status and found to have hypoglycemia in the 40s. She was provided D5 with adequate response of her blood sugar 74. She is now awake, alert, and making vocalizations but does not answer questions or follow commands. Unfortunately, there are no family members present to provide additional information. Evaluation by the emergency physician revealed core temp 92.4, bradycardia 46, hypertension 187/105, and RR 8. Lab work up demonstrated her baseline anemia (Hgb 44), nml WBC, and an unremarkable chemistry other than the above mentioned hypoglycemia. She is noted to have mildly elevated LFTs, though improved from previous labs and without hyperbilirubinemia. Thyroid panel is acceptable, Lactic acid is nml, A1C 5.5. Chest xray is benign and Head Ct demonstrated only chronic michrovascular ischemic changes. She was referred to the hospitalist service for admission and management of the above stated findings. Past Medical History Cardiac Medical History: Reports: Hyperlipidema, Hypertension Pulmonary Medical History: Reports: Asthma Endocrine Medical History: Reports: Diabetes Mellitus Type 2 - insulin dependent GI Medical History: Reports: Gastroesophageal Reflux Disease, Hepatitis Psychiatric Medical History: Reports: Dementia, Depression Hematology: Reports: Anemia Past Surgical History Past Surgical History: Reports: Hysterectomy Social History Information Source: Emergency Med Personnel, [facility] Records Lives with: Family Smoking Status: Unknown if Ever Smoked Frequency of Alcohol Use: None Hx Recreational Drug Use: No Hx Prescription Drug Abuse: No Family History Family History: unable to review secondary to mental status Parental Family History Reviewed: No Children Family History Reviewed: No Sibling(s) Family History Reviewed.: No Medication/Allergy Home Medications: Insulin Detemir [Levemir Insulin 100 units/mL] 35 unit SUBCUT QHS 03/16/18 Insulin Regular, Human [Novolin R (Reg) Insulin 100 unit/mL] 0 unit SUBCUT .SLD SCALE 03/16/18 Bisacodyl [Dulcolax 10 mg Supp.rect] 10 mg MA DAILYP PRN #14 supp.rect 03/18/18 Buspirone HCl [Buspar 10 mg Tablet] 10 mg PO BID #60 tablet 03/18/18 Levetiracetam [Keppra] 250 mg PO BID #60 tablet 03/18/18 Tamsulosin HCl [Flomax] 0.4 mg PO DAILY #30 cap.er.24h 03/18/18 Loratadine [Claritin] 10 mg PO DAILY #30 capsule 06/18/18 Dextrose [Glucose Gel] 15 gm PO ASDIR PRN #15 gel..gm. 06/24/18 Allergies/Adverse Reactions: acetaminophen [From Vicodin] Allergy (Verified 06/24/18 12:05) hydrocodone [From Vicodin] Allergy (Verified 06/24/18 12:05) Review of Systems ROS unobtainable: Due to mental status Physical Exam Vital Signs: Temp Pulse Resp BP Pulse Ox 10 L 187/105 H 100 06/26/18 14:00 06/26/18 10:10 06/26/18 14:00 Intake & Output 06/25/18 06/26/18 06/27/18 06:59 06:59 06:59 Intake Total 50 Balance 50 General appearance: PRESENT: no acute distress, well-developed, other - Cachectic Head exam: PRESENT: atraumatic, normocephalic Eye exam: PRESENT: conjunctiva pink, EOMI, PERRLA. ABSENT: scleral icterus Ear exam: PRESENT: normal external ear exam Mouth exam: PRESENT: moist, tongue midline Teeth exam: PRESENT: edentulous Neck exam: ABSENT: carotid bruit, JVD, lymphadenopathy, thyromegaly Respiratory exam: PRESENT: decreased breath sounds - Poor inspiratory effort, symmetrical, unlabored. ABSENT: rales, rhonchi, wheezes Cardiovascular exam: PRESENT: bradycardia, +S1, +S2. ABSENT: diastolic murmur, rubs, systolic murmur Pulses: PRESENT: +1 pedal pulses bilateral Vascular exam: PRESENT: normal capillary refill GI/Abdominal exam: PRESENT: normal bowel sounds, soft. ABSENT: distended, guarding, mass, organolmegaly, rebound, tenderness Rectal exam: PRESENT: deferred Extremities exam: ABSENT: calf tenderness, clubbing, pedal edema Neurological exam: PRESENT: alert, awake, CN II-XII grossly intact, aphasic, other - Nonverbal at baseline due to advanced dementia, no focal deficits or facial asymmetry noted. Patient does not follow commands. ABSENT: oriented to person, oriented to place, oriented to time, oriented to situation, motor sensory deficit Skin exam: PRESENT: dry, intact, warm. ABSENT: cyanosis, rash Results Laboratory Results: 06/26/18 09:47 06/26/18 09:47 06/26/18 06/26/18 06/26/18 09:47 09:47 09:47 WBC 4.1 RBC 3.90 Hgb 11.6 L Hct 35.5 L MCV 91 MCH 29.6 MCHC 32.5 RDW 14.2 H Plt Count 267 Seg Neutrophils % Not Reportable Lymphocytes % Not Reportable Monocytes % Not Reportable Eosinophils % Not Reportable Basophils % Not Reportable Absolute Neutrophils Not Reportable Absolute Lymphocytes Not Reportable Absolute Monocytes Not Reportable Absolute Eosinophils Not Reportable Absolute Basophils Not Reportable Sodium 140.7 Potassium 4.1 Chloride 104 Carbon Dioxide 30 Anion Gap 7 BUN 19 Creatinine 0.50 L Est GFR ( Amer) > 60 Est GFR (Non-Af Amer) > 60 Glucose 74 L Lactic Acid Calcium 9.3 Total Bilirubin 0.6 AST 68 H ALT 40 Alkaline Phosphatase 179 H Total Protein 6.4 Albumin 3.0 L TSH 3.59 Free T4 1.54 Free T3 pg/mL 2.15 L Urine Color Urine Appearance Urine pH Ur Specific [place] Urine Protein Urine Glucose (UA) Urine Ketones Urine Blood Urine Nitrite Ur Leukocyte Esterase Urine WBC (Auto) 06/26/18 06/26/18 10:10 14:27 WBC RBC Hgb Hct MCV MCH MCHC RDW Plt Count Seg Neutrophils % Lymphocytes % Monocytes % Eosinophils % Basophils % Absolute Neutrophils Absolute Lymphocytes Absolute Monocytes Absolute Eosinophils Absolute Basophils Sodium Potassium Chloride Carbon Dioxide Anion Gap BUN Creatinine Est GFR ( Amer) Est GFR (Non-Af Amer) Glucose Lactic Acid 0.9 Calcium Total Bilirubin AST ALT Alkaline Phosphatase Total Protein Albumin TSH Free T4 Free T3 pg/mL Urine Color YELLOW Urine Appearance SLIGHTLY-CLOUDY Urine pH 6.0 Ur Specific [place] 1.011 Urine Protein NEGATIVE Urine Glucose (UA) 50 H Urine Ketones NEGATIVE Urine Blood SMALL H Urine Nitrite NEGATIVE Ur Leukocyte Esterase NEGATIVE Urine WBC (Auto) 2 Impressions: Chest X-Ray 06/26/18 10:11 IMPRESSION: NO ACUTE RADIOGRAPHIC FINDING IN THE CHEST. Head CT 06/26/18 10:49 IMPRESSION: CHRONIC CHANGES OF ATROPHY AND MICROVASCULAR ISCHEMIA. NO ACUTE PROCESS. EVIDENCE OF ACUTE STROKE: NO. Assessment & Plan - Diagnosis (1) Hypoglycemia Is this a current diagnosis for this admission?: Yes Plan: The patient has had 3 visits to the emergency department this week for hypoglycemia. Today EMS responded for report of altered mental status and found the patient to have a blood sugar in the 40s which responded appropriately to IV dextrose. Likely secondary to insulin dosing. The patient's home medication record that she is prescribed Lantus 35 units nightly with sliding scale insulin. Her insulin dosing is likely too high given her body weight, lack of subcut aneous fat, and poor oral intake. Given this, it is likely the patient will have a reoccurrence of hypoglycemia today once the glucose provided by EMS is metabolized. Will admit to [facility] on continuous monitoring. She is placed on a regular diet; pureed for safety. Start D5NS at 75 ml/hr. Accu-Cheks every 4 hours with humalog for sliding scale coverage. Hypoglycemia protocol in place. (2) Hypothermia Qualifiers: Encounter type: initial encounter Qualified Code(s): T68.XXXA - Hypothermia, initial encounter Is this a current diagnosis for this admission?: Yes Plan: Likely secondary to profound hypoglycemia; unclear how long the patient's blood sugar was low but found by family member to have a glucose in the 40s. Thyroid panel is acceptable. Head CT demonstrated chronic microvascular changes but no acute findings. Random cortisol pending. CK pending The patient is placed on Agapito hugger. Continue to monitor core temperature; nursing is asked not to use oral te mperatures for monitoring. Sepsis is considered; however, the patient has a normal white count, normal lactic acid, normal urinalysis, clear chest x-ray, with no other identified sources of possible infection. We will continue to monitor for indications of occult infection. (3) IDDM (insulin dependent diabetes mellitus) Is this a current diagnosis for this admission?: Yes Plan: A1c 5.5% Pt is Lantus 35 units nightly with sliding scale insulin. Her insulin dosing is likely too high given her body weight, lack of subcutaneous fat, and poor oral intake; resulting in repeat ED visits for hypoglycemia. Patient is placed on a Regular diet; liberalized due to patient's apparent poor nutritional status. Accu-Cheks every 4 hours with Humalog for sliding scale coverage. Hypoglycemia protocol in place. It is very unlikely that it discharge the patient will have drastically reduced insulin needs; she may even no longer require insulin coverage. A patient with her age and life expectancy is recommended to have a goal A1c of <8.5%; she is clearly over treated. it architect is consulted. (4) Urinary retention Is this a current diagnosis for this admission?: Yes Plan: History of chronic urinary retention. Continue bladder scans every 6 hours with straight catheter as needed for urine greater than 200 mL's. We will resume Flomax once patient's swallow safety is established. (5) Dementia Qualifiers: Dementia type: unspecified type Dementia behavioral disturbance: with behavioral disturbance Qualified Code(s): F03.91 - Unspecified dementia with behavioral disturbance Is this a current diagnosis for this admission?: Yes Plan: During during previous admission mental health team was consulted for medication recommendations for dementia disturbances at home. At that time they recommended Keppra and BuSpar twice daily. Will resume once patient's swallow safety is established. Head CT (today) demonstrated chronic microvascular changes. Supportive care; fall and aspiration precautions. Discharge planning is consulted. (6) Hypertension Is this a current diagnosis for this admission?: Yes Plan: Pt does not appear to be on home anti-hypertensives. She is noted to have a BP of 180/100 in the ED. IV Hydralazine is ordered for blood pressure control. - Time Time Spent: 50 to 70 Minutes Medications reviewed and adjusted accordingly: Yes Anticipated discharge: SNF - Inpatient Certification Based on my medical assessment, after consideration of the patient's comorbidities, presenting symptoms, or acuity I expect that the services needed warrant INPATIENT care.: Yes I certify that my determination is in accordance with my understanding of Medicare's requirements for reasonable and necessary INPATIENT services [42 CFR 412.3e].: Yes Medical Necessity: Failure to Improve With Outpatient Therapy, Need Close Monitoring Due to Risk of Patient Decompensation, Need For IV Fluids
[2018-06-26] MEDS ORDERED: DEXTROSE 40% GEL 15 GM TUBE PO PRN ×2 (15:59)
[2018-06-26] MEDS ORDERED: GLUCAGON,HUMAN RECOMB 1 MG INJ IM PRN (15:59)
[2018-06-26] MEDS ORDERED: DEXTROSE 50%-WATER 25 GM/50 ML DISP.SYRIN IV PRN ×2 (15:59)
[2018-06-26] MEDS: HEPARIN SOD (PORCINE) 5,000 UNIT/ML 1 ML SYRINGE SUBCUT SCH ×2 (16:26→21:43)
[2018-06-26] MEDS: DEXTROSE 5%-NORMAL SALINE 1,000 ML IV PRN (16:55)
--- NOTE | 2018-06-26 18:16 | EKG REPORT ---
SEVERITY:- ABNORMAL ECG - SINUS RHYTHM ANTERIOR INFARCT, AGE INDETERMINATE BORDERLINE T ABNORMALITIES, INFERIOR LEADS : Confirmed by: Mago Lucas MD 26-Jun-2018 18:15:37
[2018-06-26] MEDS: INSULIN LISPRO 100 UNIT/ML 3 ML VIAL SUBCUT SCH (18:23)
[2018-06-26 19:30] LABS: C PEPTIDE 0.516 ng/mL (0.727-3.680)
[2018-06-26] MEDS: FAMOTIDINE INJ/PF 20 MG/2 ML SDV IV SCH (21:43)
[2018-06-26] MEDS ORDERED: CEFEPIME 2 GM/D5W RTU 2 GM/50 ML RTUPB IV SCH (22:00)
[2018-06-27] MEDS: INSULIN LISPRO 100 UNIT/ML 3 ML VIAL SUBCUT SCH ×4 (00:55→18:13)
[2018-06-27 04:57] LABS: ABSOLUTE BASOPHILS # (AUTO) 0.1 10^3/uL (0.0-0.2); ABSOLUTE LYMPHOCYTES (AUTO) 3.5 10^3/uL (0.5-4.7); ABSOLUTE MONOCYTES (AUTO) 0.3 10^3/uL (0.1-1.4); ABSOLUTE NEUT (AUTO) 2.1 10^3/uL (1.7-8.2); BASOPHILS % (AUTO) 1.3 % (0-2); HEMATOCRIT 29.5 % (36.0-47.0); HEMOGLOBIN 9.8 g/dL (12.0-15.5); LYMPHOCYTES % (AUTO) 58.6 % (13-45); MEAN CORPUSCULAR HGB CONC 33.1 g/dL (32.0-36.0); MEAN CORPUSCULAR VOLUME 91 fl (80-97); MONOCYTES % (AUTO) 5.6 % (3-13); PLATELET COUNT 222 10^3/uL (150-450); RED BLOOD COUNT 3.26 10^6/uL (3.72-5.28); RED CELL DISTRIBUTION WIDTH 14.2 % (11.5-14.0); SEGMENTED NEUTROPHILS % (AUTO) 34.5 % (42-78); TOTAL CELLS COUNTED % (AUTO) 100 %
[2018-06-27 05:22] LABS: ALANINE AMINOTRANSFERASE 35 U/L (9-52); ALBUMIN 2.4 g/dL (3.5-5.0); ALKALINE PHOSPHATASE 164 U/L (38-126); ANION GAP 6 (5-19); ASPARTATE AMINO TRANSFERASE 52 U/L (14-36); BILIRUBIN,DIRECT 0.4 mg/dL (0.0-0.4); BILIRUBIN,TOTAL 0.4 mg/dL (0.2-1.3); BLOOD UREA NITROGEN 19 mg/dL (7-20); CARBON DIOXIDE 28 mmol/L (22-30); CHLORIDE 108 mmol/L (98-107); GLUCOSE 110 mg/dL (75-110); PHOSPHORUS 3.3 mg/dL (2.5-4.5); POTASSIUM 3.7 mmol/L (3.6-5.0); SODIUM 141.8 mmol/L (137-145); TOTAL PROTEIN 5.4 g/dL (6.3-8.2)
[2018-06-27] MEDS: HEPARIN SOD (PORCINE) 5,000 UNIT/ML 1 ML SYRINGE SUBCUT SCH ×3 (06:02→21:49)
[2018-06-27] MEDS: DEXTROSE 5%-NORMAL SALINE 1,000 ML IV PRN ×2 (08:52→18:59)
[2018-06-27] MEDS: DOCUSATE SODIUM 100 MG/10 ML UDC PO SCH (11:00)
[2018-06-27] MEDS: CEFTRIAXONE 1 GM/D5W RTU 1 GM/50 ML RTUPB IV SCH (11:05)
[2018-06-27] MEDS: FAMOTIDINE INJ/PF 20 MG/2 ML SDV IV SCH ×2 (11:05→21:49)
--- NOTE | 2018-06-27 16:00 | PDOC PROGRESS REPORT ---
Subjective Progress Note for:: 06/27/18 Subjective:: CHAZ ANDERSON is a 68 year old female a known past medical history of insulin- dependent diabetes mellitus, untreated chronic hepatitis C, depression, and dementia (patient is nonverbal at baseline) who was admitted 06/26/18 for hypothermia, hypoglycemia, and altered mental status. Patient was seen on morning rounds. She is found resting in bed comfortably on room air. She was awake and alert; gesturing about the room, but not speaking. It is unclear what she is trying to communicate; she is not answering questions or following commands. She is offered a sip of water but tightly clamps her mouth shut; nursing reports that she has not allowed them to take oral temperatures or attempt oral intake. ROS is limited secondary to mental status; she appears comfortable and not in any acute distress. No concerns per nursing. Reason For Visit: SEPSIS,HYPOGLYCEMIA,HYPOTHERMIA Physical Exam Vital Signs: Temp Pulse Resp BP Pulse Ox 96.4 F L 96 15 151/98 H 95 06/27/18 11:05 06/27/18 14:00 06/27/18 13:41 06/27/18 11:05 06/27/18 13:41 Intake & Output 06/26/18 06/27/18 06/28/18 06:59 06:59 06:59 Intake Total 1050 50 Output Total 646 Balance 404 50 Weight 38 kg General appearance: PRESENT: no acute distress, well-developed, other - Cachectic Head exam: PRESENT: atraumatic, normocephalic Eye exam: PRESENT: conjunctiva pink, EOMI, PERRLA. ABSENT: scleral icterus Ear exam: PRESENT: normal external ear exam Mouth exam: PRESENT: moist, tongue midline Teeth exam: PRESENT: edentulous Neck exam: ABSENT: carotid bruit, JVD, lymphadenopathy, thyromegaly Respiratory exam: PRESENT: clear to auscultation ming, symmetrical, unlabored. ABSENT: rales, rhonchi, wheezes Cardiovascular exam: PRESENT: RRR. ABSENT: diastolic murmur, rubs, systolic murmur Pulses: PRESENT: normal dorsalis pedis pul Vascular exam: PRESENT: normal capillary refill GI/Abdominal exam: PRESENT: normal bowel sounds, soft. ABSENT: distended, guarding, mass, organolmegaly, rebound, tenderness Rectal exam: PRESENT: deferred Extremities exam: PRESENT: full ROM - Spontaneously moves all extremities. ABSENT: calf tenderness, clubbing, pedal edema Neurological exam: PRESENT: alert, awake, CN II-XII grossly intact, other - Nonverbal; does not answer questions or follow directions. No focal deficits or facial asymmetry noted.. ABSENT: motor sensory deficit Psychiatric exam: PRESENT: appropriate affect, normal mood. ABSENT: homicidal ideation, suicidal ideation Skin exam: PRESENT: dry, intact, warm. ABSENT: cyanosis, rash Results Laboratory Results: 06/27/18 03:48 06/27/18 03:48 06/26/18 06/27/18 06/27/18 18:15 03:48 03:48 WBC 6.0 RBC 3.26 L Hgb 9.8 L Hct 29.5 L MCV 91 MCH 30.0 MCHC 33.1 RDW 14.2 H Plt Count 222 Seg Neutrophils % 34.5 L Lymphocytes % 58.6 H Monocytes % 5.6 Eosinophils % 0.0 Basophils % 1.3 Absolute Neutrophils 2.1 Absolute Lymphocytes 3.5 Absolute Monocytes 0.3 Absolute Eosinophils 0.0 Absolute Basophils 0.1 Sodium 141.8 Potassium 3.7 Chloride 108 H Carbon Dioxide 28 Anion Gap 6 BUN 19 Creatinine 0.61 Est GFR ( Amer) > 60 Est GFR (Non-Af Amer) > 60 Glucose 110 C-Peptide 0.516 L Calcium 9.0 Phosphorus 3.3 Magnesium 1.7 Total Bilirubin 0.4 AST 52 H ALT 35 Alkaline Phosphatase 164 H Total Protein 5.4 L Albumin 2.4 L 06/26/18 06/26/18 18:15 18:15 Creatine Kinase 25 L Troponin I < 0.012 Impressions: Chest X-Ray 06/26/18 10:11 IMPRESSION: NO ACUTE RADIOGRAPHIC FINDING IN THE CHEST. Head CT 06/26/18 10:49 IMPRESSION: CHRONIC CHANGES OF ATROPHY AND MICROVASCULAR ISCHEMIA. NO ACUTE PROCESS. EVIDENCE OF ACUTE STROKE: NO. Assessment & Plan - Diagnosis (1) Hypoglycemia Is this a current diagnosis for this admission?: Yes Plan: Unclear etiology; exogenous insulin versus profound malnutrition. The patient has had 3 visits to the emergency department this week for hypoglycemia. The patient's care provider states that she has not provided insulin at all over the last month. Medical records indicate the patient has had a decline in weight over the last year; 42.1 kg (May 2017) down 38 kg today. Further review find the patient had elevated blood to glucose the 300s during her admission March 2018 requiring insulin. A1c 5.5% Insulin level low 1.27 C-peptide low 0.516 Random in a.m. cortisols are normal Proinsulin and beta hydroxybutyrate pending She is admitted to [facility] on continuous monitoring. Continue D5NS at 75 ml/hr Accu-Cheks every 4 hours with humalog for sliding scale coverage. Hypoglycemia protocol in place. (2) Hypothermia Qualifiers: Encounter type: initial encounter Qualified Code(s): T68.XXXA - Hypothermia, initial encounter Is this a current diagnosis for this admission?: Yes Plan: Improved, however, the patient is continuing to require Agapito hugger intermit tently to maintain body temperature. Thyroid panel is normal. Random in a.m. cortisol levels are normal. Head CT demonstrated chronic microvascular changes but no acute findings. The patient is placed on Agapito hugger. Continue to monitor core temperature; nursing is asked not to use oral temperatu res for monitoring. Sepsis is considered; however, the patient has a normal white count, normal lact ic acid, normal urinalysis, clear chest x-ray. Urine culture does show gram- negative rods (>100k colonies); have started IV Rocephin empirically. (3) IDDM (insulin dependent diabetes mellitus) Is this a current diagnosis for this admission?: Yes Plan: A1c 5.5% Clear liquid, thickened, for safety. Accu-Cheks every 6 hours with Humalog for sliding scale coverage. Hypoglycemia protocol in place. permanent waver is consulted. (4) Urinary retention Is this a current diagnosis for this admission?: Yes Plan: History of chronic urinary retention. Continue bladder scans every 6 hours with straight catheter as needed for urine greater than 200 mL's. We will resume Flomax once patient's swallow safety is established. (5) Dementia Qualifiers: Dementia type: unspecified type Dementia behavioral disturbance: with behavioral disturbance Qualified Code(s): F03.91 - Unspecified dementia with behavioral disturbance Is this a current diagnosis for this admission?: Yes Plan: During during previous admission mental health team was consulted for medication recommendations for dementia disturbances at home. At that time they recommended Keppra and BuSpar twice daily. Will resume once patient's swallow safety is established. Head CT (today) demonstrated chronic microvascular changes. Supportive care; fall and aspiration precautions. Discharge planning is consulted. (6) Hypertension Is this a current diagnosis for this admission?: Yes Plan: Pt does not appear to be on home anti-hypertensives. She is noted to have a BP of 180/100 in the ED. IV Hydralazine is ordered for blood pressure control. (7) Malnutrition Qualifiers: Malnutrition type: protein-calorie malnutrition Protein-calorie malnutrition severity: severe Qualified Code(s): E43 - Unspecified severe protein-calorie malnutrition Is this a current diagnosis for this admission?: Yes Plan: The patient is found to have severe protein-calorie malnutrition notable for BMI of 13.9, loss of subcutaneous fat, inability to regulate glucose or temperature, and hypoalbuminemia 2.4. The registered dietitian is consulted. The patient is not safely swallowing at this time. Speech therapy is ordered, however, I do not anticipate that the patient will actively participate in swallow screening. Discharge planning is consulted to assist with finding the patient's appropriate healthcare power of assembler semiconductor/family (the POA provided by the care provider indicates that she is not the Health Care POA). Will need to consider alternate means of nutrition if goals of care can not be established (patient is hospice appropriate). - Time Time Spent with patient: 25-34 minutes Medications reviewed and adjusted accordingly: Yes - Inpatient Certification Based on my medical assessment, after consideration of the patient's comorbidities, presenting symptoms, or acuity I expect that the services needed warrant INPATIENT care.: Yes I certify that my determination is in accordance with my understanding of Medicare's requirements for reasonable and necessary INPATIENT services [42 CFR 412.3e].: Yes Medical Necessity: Need Close Monitoring Due to Risk of Patient Decompensation, Need For IV Fluids, Need for IV Antibiotics, Risk of Complication if Not Cared For in Hospital
[2018-06-28] MEDS: INSULIN LISPRO 100 UNIT/ML 3 ML VIAL SUBCUT SCH ×5 (00:17→23:54)
[2018-06-28] MEDS: HEPARIN SOD (PORCINE) 5,000 UNIT/ML 1 ML SYRINGE SUBCUT SCH ×3 (05:25→21:28)
[2018-06-28 05:26] LABS: HEMATOCRIT 26.3 % (36.0-47.0); HEMOGLOBIN 8.8 g/dL (12.0-15.5); MEAN CORPUSCULAR HEMOGLOBIN 30.2 pg (27.0-33.4); MEAN CORPUSCULAR HGB CONC 33.4 g/dL (32.0-36.0); MEAN CORPUSCULAR VOLUME 91 fl (80-97); PLATELET COUNT 178 10^3/uL (150-450); RED CELL DISTRIBUTION WIDTH 13.8 % (11.5-14.0); WHITE BLOOD COUNT 4.8 10^3/uL (4.0-10.5)
[2018-06-28 05:39] LABS: BLOOD UREA NITROGEN 15 mg/dL (7-20); GLUCOSE 134 mg/dL (75-110); POTASSIUM 3.4 mmol/L (3.6-5.0)
[2018-06-28 05:44] LABS: CARBON DIOXIDE 29 mmol/L (22-30); CHLORIDE 111 mmol/L (98-107)
[2018-06-28 05:46] LABS: PHOSPHORUS 2.8 mg/dL (2.5-4.5)
[2018-06-28 07:24] LABS: ANION GAP 3 (5-19)
[2018-06-28] MEDS: DEXTROSE 5%-NORMAL SALINE 1,000 ML IV PRN (08:36)
[2018-06-28] MEDS: DOCUSATE SODIUM 100 MG/10 ML UDC PO SCH (09:02)
[2018-06-28] MEDS: CEFTRIAXONE 1 GM/D5W RTU 1 GM/50 ML RTUPB IV SCH (09:11)
[2018-06-28] MEDS: FAMOTIDINE INJ/PF 20 MG/2 ML SDV IV SCH ×2 (09:11→21:29)
[2018-06-28] MEDS: MAGNESIUM SULFATE/D5W 1 GM/100 ML RTUPB IV SCH ×2 (09:49→11:09)
--- NOTE | 2018-06-28 19:44 | PDOC PROGRESS REPORT ---
Subjective Progress Note for:: 06/28/18 Subjective:: CHAZ ANDERSON is a 68 year old female a known past medical history of insulin- dependent diabetes mellitus, untreated chronic hepatitis C, depression, and dementia (patient is nonverbal at baseline) who was admitted 06/26/18 for hypothermia, hypoglycemia, and altered mental status. The patient was seen this morning on rounds. She is resting comfortably in bed. She does not respond to verbal stimuli, although, nursing staff reports that the patient greeted her when she entered the room. The patient is very thin, (+) temporal wasting, generalized muscle atrophy. PERRLA. Lungs CTA, respirations are very shallow. Trace pedal edema. Overnight, the patient intermittently required the Bear Hugger (warming blanket) for HYPOthermia. Concerned that the patient may be demonstrating possible end of life symptoms; she is too frail and thin to be able to regulate temperature and glucose. Awaiting prolactin and betahydroxybuterate level. Reason For Visit: SEPSIS,HYPOGLYCEMIA,HYPOTHERMIA Physical Exam Vital Signs: Temp Pulse Resp BP Pulse Ox 99.1 F 84 12 153/82 H 100 06/28/18 03:52 06/28/18 03:52 06/28/18 03:52 06/28/18 03:52 06/28/18 03:52 Intake & Output 06/26/18 06/27/18 06/28/18 06:59 06:59 06:59 Intake Total 1050 809 Output Total 646 375 Balance 404 434 Weight 38 kg General appearance: PRESENT: thin Head exam: PRESENT: other - temporal wasting Eye exam: PRESENT: conjunctiva pink, PERRLA Mouth exam: PRESENT: other - DENIS. PATIENT NOT WILLING TO OPEN MOUTH Teeth exam: PRESENT: other - DENIS. PATIENT NOT WILLING TO OPEN MOUTH Throat exam: PRESENT: other - DENIS. PATIENT NOT WILLING TO OPEN MOUTH Neck exam: ABSENT: tracheal deviation Respiratory exam: PRESENT: clear to auscultation ming, decreased breath sounds - DIMINISHED B/L IN BASES, unlabored, other - SHALLOW RESPIRATIONS Cardiovascular exam: PRESENT: +S1, +S2 Pulses: PRESENT: normal radial pulses GI/Abdominal exam: PRESENT: soft. ABSENT: distended, tenderness Rectal exam: PRESENT: deferred Extremities exam: PRESENT: pedal edema - TRACE EDEMA. ABSENT: full ROM Musculoskeletal exam: ABSENT: full ROM, normal inspection - SIGNIFICANT MUSCLE ATROPHY Neurological exam: PRESENT: other - NONVERBAL. ABSENT: alert, awake, oriented to person, oriented to place, oriented to time, oriented to situation Psychiatric exam: PRESENT: appropriate affect Skin exam: PRESENT: normal color Results Laboratory Results: 06/27/18 03:48 06/27/18 03:48 06/27/18 06/27/18 06/27/18 03:48 03:48 15:05 WBC 6.0 RBC 3.26 L Hgb 9.8 L Hct 29.5 L MCV 91 MCH 30.0 MCHC 33.1 RDW 14.2 H Plt Count 222 Seg Neutrophils % 34.5 L Lymphocytes % 58.6 H Monocytes % 5.6 Eosinophils % 0.0 Basophils % 1.3 Absolute Neutrophils 2.1 Absolute Lymphocytes 3.5 Absolute Monocytes 0.3 Absolute Eosinophils 0.0 Absolute Basophils 0.1 Sodium 141.8 Potassium 3.7 Chloride 108 H Carbon Dioxide 28 Anion Gap 6 BUN 19 Creatinine 0.61 Est GFR ( Amer) > 60 Est GFR (Non-Af Amer) > 60 Glucose 110 Calcium 9.0 Phosphorus 3.3 Magnesium 1.7 Total Bilirubin 0.4 AST 52 H ALT 35 Alkaline Phosphatase 164 H Total Protein 5.4 L Albumin 2.4 L Prealbumin 8.6 L 06/26/18 06/26/18 18:15 18:15 Creatine Kinase 25 L Troponin I < 0.012 Impressions: Chest X-Ray 06/26/18 10:11 IMPRESSION: NO ACUTE RADIOGRAPHIC FINDING IN THE CHEST. Head CT 06/26/18 10:49 IMPRESSION: CHRONIC CHANGES OF ATROPHY AND MICROVASCULAR ISCHEMIA. NO ACUTE PROCESS. EVIDENCE OF ACUTE STROKE: NO. Status: Imported from PACS Assessment & Plan - Diagnosis (1) Hypoglycemia Is this a current diagnosis for this admission?: Yes Plan: Unclear etiology; exogenous insulin versus profound malnutrition. The patient has had 3 visits to the emergency department this week for hypoglycemia. The patient's care provider states that she has not provided insulin at all over the last month. Medical records indicate the patient has had a decline in weight over the last year; 42.1 kg (May 2017) down 38 kg. Further review find the patient had elevated blood to glucose the 300s during her admission March 2018 requiring insulin. A1c 5.5% Insulin level low 1.27 C-peptide low 0.516 Random in a.m. cortisols are normal Proinsulin and beta hydroxybutyrate pending She is admitted to [facility] on continuous monitoring. Continue D5NS at 75 ml/hr Accu-Cheks every 4 hours with humalog for sliding scale coverage. Hypoglycemia protocol in place. (2) Hypothermia Qualifiers: Encounter type: initial encounter Qualified Code(s): T68.XXXA - Hypothermia, initial encounter Is this a current diagnosis for this admission?: Yes Plan: Improved, however, the patient is continuing to require Bear hugger intermittently to maintain body temperature. Thyroid panel is normal. Random in a.m. cortisol levels are normal. Head CT demonstrated chronic microvascular changes but no acute findings. The patient is placed on Bear hugger. Continue to monitor core temperature; nursing is asked not to use oral temperatures for monitoring. Sepsis is considered; however, the patient has a normal white count, normal lactic acid, normal urinalysis, clear chest x-ray. Urine culture does show gram-negative rods (>100k colonies); have started IV Rocephin empirically. (3) Hypertension Is this a current diagnosis for this admission?: Yes Plan: Pt does not appear to be on home anti-hypertensives. She is noted to have a BP of 180/100 in the ED. IV Hydralazine is ordered for blood pressure control. (4) IDDM (insulin dependent diabetes mellitus) Is this a current diagnosis for this admission?: Yes Plan: A1c 5.5% Clear liquid, thickened, for safety. Accu-Cheks every 6 hours with Humalog for sliding scale coverage. Hypoglycemia protocol in place. hammersmith helper is consulted. (5) Malnutrition Qualifiers: Malnutrition type: protein-calorie malnutrition Protein-calorie malnutrition severity: severe Qualified Code(s): E43 - Unspecified severe protein-calorie malnutrition Is this a current diagnosis for this admission?: Yes Plan: The patient is found to have severe protein-calorie malnutrition notable for BMI of 13.9, loss of subcutaneous fat, inability to regulate glucose or temperature, and hypoalbuminemia 2.4. The registered dietitian is consulted. The patient is not safely swallowing at this time. Speech therapy is ordered, however, I do not anticipate that the patient will actively participate in sw allow screening. Discharge planning is consulted to assist with finding the patient's appropriate healthcare power of cotton expert/family (the POA provided by the care provider indicates that she is not the Health Care POA). Will need to consider alternate means of nutrition if goals of care can not be established (patient is hospice appropriate). (6) Dementia Qualifiers: Dementia type: unspecified type Dementia behavioral disturbance: with behavioral disturbance Qualified Code(s): F03.91 - Unspecified dementia with behavioral disturbance Is this a current diagnosis for this admission?: Yes Plan: During during previous admission mental health team was consulted for medication recommendations for dementia disturbances at home. At that time they recommended Keppra and BuSpar twice daily. Will resume once patient's swallow safety is established. Head CT (today) demonstrated chronic microvascular changes. Supportive care; fall and aspiration precautions. Discharge planning is consulted. (7) Urinary retention Is this a current diagnosis for this admission?: Yes Plan: History of chronic urinary retention. Continue bladder scans every 6 hours with straight catheter as needed for urine greater than 200 mL's. We will resume Flomax once patient's swallow safety is established. - Time Time Spent with patient: 15-24 minutes Medications reviewed and adjusted accordingly: Yes Anticipated discharge: Hospice, Other - NEED TO DISCUSS DISPO WITH POA. HOSPICE VS. HOME WITH HH - Inpatient Certification Based on my medical assessment, after consideration of the patient's comorbidities, presenting symptoms, or acuity I expect that the services needed warrant INPATIENT care.: Yes I certify that my determination is in accordance with my understanding of Medicare's requirements for reasonable and necessary INPATIENT services [42 CFR 412.3e].: Yes Medical Necessity: Need For Continuous Telemetry Monitoring - Plan Summary Plan Summary: CHANGE IV ABX TO PO. AWAITING LAB RESULTS
[2018-06-29] MEDS: DEXTROSE 5%-NORMAL SALINE 1,000 ML IV PRN ×2 (00:43→17:57)
[2018-06-29 05:53] LABS: HEMATOCRIT 30.8 % (36.0-47.0); HEMOGLOBIN 10.1 g/dL (12.0-15.5); MEAN CORPUSCULAR HEMOGLOBIN 29.9 pg (27.0-33.4); MEAN CORPUSCULAR HGB CONC 32.8 g/dL (32.0-36.0); MEAN CORPUSCULAR VOLUME 91 fl (80-97); PLATELET COUNT 180 10^3/uL (150-450); RED BLOOD COUNT 3.38 10^6/uL (3.72-5.28); RED CELL DISTRIBUTION WIDTH 13.9 % (11.5-14.0)
[2018-06-29] MEDS: INSULIN LISPRO 100 UNIT/ML 3 ML VIAL SUBCUT SCH ×3 (05:58→18:45)
[2018-06-29 06:22] LABS: ALANINE AMINOTRANSFERASE 25 U/L (9-52); ALBUMIN 2.2 g/dL (3.5-5.0); ALKALINE PHOSPHATASE 140 U/L (38-126); ASPARTATE AMINO TRANSFERASE 35 U/L (14-36); BILIRUBIN,DIRECT 0.3 mg/dL (0.0-0.4); BILIRUBIN,TOTAL 0.3 mg/dL (0.2-1.3); BLOOD UREA NITROGEN 12 mg/dL (7-20); CALCIUM 8.6 mg/dL (8.4-10.2); CARBON DIOXIDE 26 mmol/L (22-30); CHLORIDE 112 mmol/L (98-107); GLUCOSE 133 mg/dL (75-110); POTASSIUM 3.1 mmol/L (3.6-5.0); SODIUM 141.1 mmol/L (137-145); TOTAL PROTEIN 5.1 g/dL (6.3-8.2)
[2018-06-29] MEDS: HEPARIN SOD (PORCINE) 5,000 UNIT/ML 1 ML SYRINGE SUBCUT SCH ×3 (06:33→21:38)
[2018-06-29 07:25] LABS: ANION GAP 4 (5-19)
[2018-06-29] MEDS ORDERED: MAGNESIUM SULFATE/D5W 1 GM/100 ML RTUPB IV ONE (10:00)
[2018-06-29] MEDS: CEFTRIAXONE 1 GM/D5W RTU 1 GM/50 ML RTUPB IV SCH (10:01)
[2018-06-29] MEDS: CIPROFLOXACIN HCL 500 MG TABLET PO SCH (10:02)
[2018-06-29] MEDS: FAMOTIDINE INJ/PF 20 MG/2 ML SDV IV SCH ×2 (10:02→21:38)
[2018-06-29] MEDS: DOCUSATE SODIUM 100 MG/10 ML UDC PO SCH (10:02)
[2018-06-29] MEDS ORDERED: POTASSI CL 20 MEQ/50 ML RIDER 20 MEQ/50 ML RTUPB IV SCH (10:30)
[2018-06-29] MEDS: POTASSIUM CHLORIDE 20 MEQ/50 ML RTU IV SCH ×2 (12:43→14:04)
[2018-06-29 13:21] LABS: BETA HYDROXYBUTYRATE 9.6 mg/dL (.)
[2018-06-30] MEDS: INSULIN LISPRO 100 UNIT/ML 3 ML VIAL SUBCUT SCH ×5 (00:08→23:52)
[2018-06-30] MEDS: HEPARIN SOD (PORCINE) 5,000 UNIT/ML 1 ML SYRINGE SUBCUT SCH ×3 (05:14→22:17)
[2018-06-30] MEDS: DEXTROSE 5%-NORMAL SALINE 1,000 ML IV PRN ×2 (06:10→20:38)
[2018-06-30 07:13] LABS: PROINSULIN 2.1 pmol/L (0.0-10.0)
[2018-06-30] MEDS: DOCUSATE SODIUM 100 MG/10 ML UDC PO SCH (10:03)
[2018-06-30] MEDS: FAMOTIDINE INJ/PF 20 MG/2 ML SDV IV SCH ×2 (10:03→22:17)
[2018-06-30] MEDS: CIPROFLOXACIN HCL 500 MG TABLET PO SCH (10:03)
[2018-06-30] MEDS: CEFTRIAXONE 1 GM/D5W RTU 1 GM/50 ML RTUPB IV SCH (10:03)
--- NOTE | 2018-06-30 21:49 | PDOC PROGRESS REPORT ---
Subjective Progress Note for:: 06/30/18 Subjective:: CHAZ ANDERSON is a 68 year old female a known past medical history of insulin- dependent diabetes mellitus, untreated chronic hepatitis C, depression, and dementia (patient is nonverbal at baseline) who was admitted 06/26/18 for hypothermia, hypoglycemia, and altered mental status. The patient was seen this morning on rounds. She is resting comfortably in bed. The patient is very thin, (+) temporal wasting, generalized muscle atrophy. PERRLA. Lungs CTA. Trace pedal edema. Overnight, the patient intermittently required the Bear Hugger (warming blanket) for HYPOthermia. Concerned that the patient may be demonstrating possible end of life symptoms; she is too frail and thin to be able to regulate temperature and glucose. Awaiting discussion with daughter regarding plan of care. Reason For Visit: SEPSIS,HYPOGLYCEMIA,HYPOTHERMIA Physical Exam Vital Signs: Temp Pulse Resp BP Pulse Ox 97.4 F 77 14 175/95 H 100 06/30/18 20:03 06/30/18 20:03 06/30/18 20:03 06/30/18 20:03 06/30/18 20:03 Intake & Output 06/29/18 06/30/18 07/01/18 06:59 06:59 06:59 Intake Total 2250 2000 1050 Output Total 615 620 100 Balance 1635 1380 950 Weight 38.3 kg 38.5 kg General appearance: PRESENT: thin Eye exam: PRESENT: conjunctiva pink, PERRLA Mouth exam: PRESENT: tongue midline Teeth exam: PRESENT: poor dentation Neck exam: PRESENT: full ROM Respiratory exam: PRESENT: clear to auscultation ming, symmetrical, unlabored Cardiovascular exam: PRESENT: RRR Pulses: PRESENT: normal radial pulses, normal dorsalis pedis pul Vascular exam: PRESENT: normal capillary refill GI/Abdominal exam: PRESENT: soft. ABSENT: distended, tenderness Rectal exam: PRESENT: deferred Extremities exam: ABSENT: full ROM, pedal edema Musculoskeletal exam: ABSENT: ambulatory, full ROM Neurological exam: PRESENT: awake. ABSENT: oriented to person, oriented to place, oriented to time, oriented to situation Psychiatric exam: PRESENT: flat affect Skin exam: PRESENT: dry, intact Results Laboratory Results: 06/29/18 05:43 06/29/18 05:43 02/17/19 02/17/19 18:15 18:15 Creatine Kinase 25 L Troponin I < 0.012 Impressions: Chest X-Ray 06/26/18 10:11 IMPRESSION: NO ACUTE RADIOGRAPHIC FINDING IN THE CHEST. Head CT 06/26/18 10:49 IMPRESSION: CHRONIC CHANGES OF ATROPHY AND MICROVASCULAR ISCHEMIA. NO ACUTE PROCESS. EVIDENCE OF ACUTE STROKE: NO. Status: Imported from PACS Assessment & Plan - Diagnosis (1) Hypoglycemia Is this a current diagnosis for this admission?: Yes Plan: Unclear etiology; exogenous insulin versus profound malnutrition. The patient has had 3 visits to the emergency department this week for hypoglycemia. The patient's care provider states that she has not provided insulin at all over the last month. Medical records indicate the patient has had a decline in weight over the last year; 42.1 kg (May 2017) down 38 kg. Further review find the patient had elevated blood to glucose the 300s during her admission March 2018 requiring insulin. A1c 5.5% Insulin level low 1.27 C-peptide low 0.516 Random in a.m. cortisols are normal Proinsulin and beta hydroxybutyrate pending She is admitted to [facility] on continuous monitoring. Continue D5NS at 75 ml/hr Accu-Cheks every 4 hours with humalog for sliding scale coverage. Hypoglycemia protocol in place. (2) Hypothermia Qualifiers: Encounter type: initial encounter Qualified Code(s): T68.XXXA - Hypothermia, initial encounter Is this a current diagnosis for this admission?: Yes Plan: Improved, however, the patient is continuing to require Bear hugger intermittently to maintain body temperature. Thyroid panel is normal. Random in a.m. cortisol levels are normal. Head CT demonstrated chronic microvascular changes but no acute findings. The patient is placed on Bear hugger. Continue to monitor core temperature; nursing is asked not to use oral temperatures for monitoring. Sepsis is considered; however, the patient has a normal white count, normal lactic acid, normal urinalysis, clear chest x-ray. Urine culture does show gram-negative rods (>100k colonies); have started IV Rocephin empirically. (3) Hypertension Is this a current diagnosis for this admission?: Yes Plan: Pt does not appear to be on home anti-hypertensives. She is noted to have a BP of 180/100 in the ED. IV Hydralazine is ordered for blood pressure control. (4) IDDM (insulin dependent diabetes mellitus) Is this a current diagnosis for this admission?: Yes Plan: A1c 5.5% Clear liquid, thickened, for safety. Accu-Cheks every 6 hours with Humalog for sliding scale coverage. Hypoglycemia protocol in place. transfer operator is consulted. (5) Malnutrition Qualifiers: Malnutrition type: protein-calorie malnutrition Protein-calorie malnutrition severity: severe Qualified Code(s): E43 - Unspecified severe protein-calorie malnutrition Is this a current diagnosis for this admission?: Yes Plan: The patient is found to have severe protein-calorie malnutrition notable for BMI of 13.9, loss of subcutaneous fat, inability to regulate glucose or temperature, and hypoalbuminemia 2.4. The registered dietitian is consulted. The patient is not safely swallowing at this time. Speech therapy is ordered, however, I do not anticipate that the patient will actively participate in swallow screening. Discharge planning is consulted to assist with finding the patient's appropriate healthcare power of rip machine operator/family (the POA provided by the care provider indicates that she is not the Health Care POA). Will need to consider alternate means of nutrition if goals of care can not be established (patient is hospice appropriate). (6) Dementia Qualifiers: Dementia type: unspecified type Dementia behavioral disturbance: with behavioral disturbance Qualified Code(s): F03.91 - Unspecified dementia with behavioral disturbance Is this a current diagnosis for this admission?: Yes Plan: During during previous admission mental health team was consulted for medication recommendations for dementia disturbances at home. At that time they recommended Keppra and BuSpar twice daily. Will resume once patient's swallow safety is established. Head CT (today) demonstrated chronic microvascular changes. Supportive care; fall and aspiration precautions. Discharge planning is consulted. (7) Urinary retention Is this a current diagnosis for this admission?: Yes Plan: History of chronic urinary retention. Continue bladder scans every 6 hours with straight catheter as needed for urine greater than 200 mL's. We will resume Flomax once patient's swallow safety is established. - Time Time Spent with patient: 15-24 minutes Medications reviewed and adjusted accordingly: Yes Anticipated discharge: SNF - Inpatient Certification Based on my medical assessment, after consideration of the patient's comorbidities, presenting symptoms, or acuity I expect that the services needed warrant INPATIENT care.: Yes I certify that my determination is in accordance with my understanding of Medicare's requirements for reasonable and necessary INPATIENT services [42 CFR 412.3e].: Yes Medical Necessity: Risk of Complication if Not Cared For in Hospital
[2018-07-01] MEDS: HEPARIN SOD (PORCINE) 5,000 UNIT/ML 1 ML SYRINGE SUBCUT SCH ×2 (05:34→13:25)
[2018-07-01] MEDS: INSULIN LISPRO 100 UNIT/ML 3 ML VIAL SUBCUT SCH ×3 (05:37→17:13)
[2018-07-01] MEDS: CEFTRIAXONE 1 GM/D5W RTU 1 GM/50 ML RTUPB IV SCH (09:56)
[2018-07-01] MEDS: FAMOTIDINE INJ/PF 20 MG/2 ML SDV IV SCH (09:56)
[2018-07-01] MEDS: DEXTROSE 5%-NORMAL SALINE 1,000 ML IV PRN (09:56)
[2018-07-01] MEDS: CIPROFLOXACIN HCL 500 MG TABLET PO SCH (10:59)
[2018-07-01] MEDS: DOCUSATE SODIUM 100 MG/10 ML UDC PO SCH (10:59)
[2018-07-01] MEDS ORDERED: CIPROFLOXACIN 400 MG/D5W RTU 400 MG/200 ML RTUPB IV SCH (11:30)
--- NOTE | 2018-07-01 14:00 | PDOC TRANSFER SUMMARY ---
General Admission Date/PCP: 06/26/18 13:38 BRYNN OLIVAS PA-C Admission Date: 06/26/18 Transfer Date: 07/01/18 - Transfer Diagnosis (1) Hypoglycemia Is this a current diagnosis for this admission?: Yes (2) Hypothermia Is this a current diagnosis for this admission?: Yes (3) Hypertension Is this a current diagnosis for this admission?: Yes (4) IDDM (insulin dependent diabetes mellitus) Is this a current diagnosis for this admission?: Yes (5) Malnutrition Is this a current diagnosis for this admission?: Yes (6) Dementia Is this a current diagnosis for this admission?: Yes (7) Urinary retention Is this a current diagnosis for this admission?: Yes - Transfer Medications Home Medications: Bisacodyl 10 mg KS DAILYP PRN 06/27/18 Buspirone HCl [Buspar 10 mg Tablet] 10 mg PO BID 06/27/18 Insulin Detemir [Levemir Insulin 100 units/mL] 35 units SQ QHS 06/27/18 Insulin Regular, Human [Novolin R (Reg) Insulin 100 unit/mL] 0 units SQ .PERSLIDINGSCALE 06/27/18 Levetiracetam [Keppra] 250 mg PO BID 06/27/18 Loratadine [Claritin 10 mg Tablet] 10 mg PO DAILY 06/27/18 Tamsulosin HCl [Flomax 0.4 mg Cap.sr] 0.4 mg PO DAILY 06/27/18 Transfer Medications: Current Medications Acetaminophen (Tylenol 650 Mg Supp) 650 mg KS Q4HP PRN PRN Reason: FEVER >101 Stop: 07/26/18 13:47 Albuterol/Ipratropium (Duoneb 3 Ml Ampul) 3 ml NEB [id number] PRN PRN Reason: SHORTNESS OF BREATH Stop: 07/26/18 13:47 Dextrose (Dextrose Inj 50% Syringe (25 Gm/50 Ml)) 12.5 gm IV PRN PRN; Protocol PRN Reason: FOR BG 50-69 IN ALERT PATIENT Stop: 07/26/18 15:58 Dextrose (Dextrose Inj 50% Syringe (25 Gm/50 Ml)) 25 gm IV PRN PRN; Protocol PRN Reason: PER PROTOCOL Stop: 07/26/18 15:58 Docusate Sodium (Colace 100 Mg Capsule) 100 mg PO DAILY SOFI Stop: 08/01/18 09:59 Famotidine (Pepcid Inj/Pf 20 Mg/2 Ml Sdv) 20 mg IV Q12 SOFI Stop: 07/26/18 21:59 Last Admin: 07/01/18 09:56 Dose: 20 mg Documented by: Glucagon (Glucagen Inj 1 Mg Vial) 1 mg IM PRN PRN; Protocol PRN Reason: Evaluate for BG < 70 Stop: 07/26/18 15:58 Glucose (Glutose 40% Gel 15 Gm Tube) 15 gm PO PRN PRN; Protocol PRN Reason: FOR BG 50-69 IN ALERT PATIENT Stop: 07/26/18 15:58 Glucose (Glutose 40% Gel 15 Gm Tube) 30 gm PO PRN PRN; Protocol PRN Reason: FOR BG < 50 IN ALERT PATIENT Stop: 07/26/18 15:58 Heparin Sodium (Porcine) (Heparin Inj 5,000 Units/Ml 1 Ml Syringe) 5,000 unit SUBCUT Q8 SOFI Stop: 07/26/18 13:59 Last Admin: 07/01/18 13:25 Dose: 5,000 unit Documented by: Hydralazine HCl (Apresoline Inj/Pf 20 Mg/1 Ml Sdv) 10 mg IV Q6HP PRN PRN Reason: SBP>180, DBP>100 Stop: 07/26/18 14:17 Last Admin: 06/29/18 11:16 Dose: 10 mg Documented by: Dextrose/Sodium Chloride (D5ns 1000 Ml Iv Soln) 1,000 mls @ 75 mls/hr IV CONTINUOUS PRN PRN Reason: THIS MED IS NOT "PRN" Stop: 07/26/18 13:47 Last Admin: 07/01/18 09:56 Dose: 75 mls/hr Documented by: Ceftriaxone Sodium/Dextrose (Rocephin Rtu 1 Gm/D5w 50 Ml Premix) 1 gm in 50 mls @ 100 mls/hr IV DAILY [facility] Stop: 07/04/18 10:59 Last Infusion: 07/01/18 10:33 Dose: Infused Documented by: Ciprofloxacin/Dextrose (Cipro Rtu 400 Mg/D5w 200 Ml Premix Bag) 400 mg in 200 mls @ 200 mls/hr IV Q12 SOFI Stop: 07/08/18 11:29 Last Admin: 07/01/18 12:21 Dose: 100 mls/hr, 100 mls/hr Documented by: Insulin Human Lispro (Humalog Insulin 100 Unit/1 Ml 3 Ml Vial) 0 - 12 unit SUBCUT Q6 SOFI; Protocol Stop: 07/26/18 17:59 Last Admin: 07/01/18 12:15 Dose: Not Given Documented by: Levalbuterol HCl (Xopenex Neb 1.25 Mg/3 Ml Ampul) 1.25 mg NEB [id number] PRN PRN Reason: SHORTNESS OF BREATH Stop: 07/26/18 13:47 Magnesium Hydroxide (Milk Of Magnesia 30 Ml Udcup) 30 ml PO HSP PRN PRN Reason: FOR CONSTIPATION Stop: 07/26/18 13:52 - Allergies Allergies/Adverse Reactions: acetaminophen [From Vicodin] Allergy (Verified 06/24/18 12:05) hydrocodone [From Vicodin] Allergy (Verified 06/24/18 12:05) - Diet/Activity Discharge Diet: As Tolerated Hospital Course Hospital Course: H&P: CHAZ ANDERSON is a 68 year old female a known past medical history of insulin- dependent diabetes mellitus, untreated chronic hepatitis C, depression, and dementia (patient is nonverbal at baseline) who presented to the emergency department today via EMS for complaint of altered mental status and found to have hypoglycemia in the 40s. She was provided D5 with adequate response of her blood sugar 74. She is now awake, alert, and making vocalizations but does not answer questions or follow commands. Unfortunately, there are no family members present to provide additional information. Evaluation by the emergency physician revealed core temp 92.4, bradycardia 46, hypertension 187/105, and RR 8. Lab work up demonstrated her baseline anemia (Hgb 44), nml WBC, and an unremarkable chemistry other than the above mentioned hypoglycemia. She is noted to have mildly elevated LFTs, though improved from previous labs and without hyperbilirubinemia. Thyroid panel is acceptable, Lactic acid is nml, A1C 5.5. Chest xray is benign and Head Ct demonstrated only chronic michrovascular ischemic changes. She was referred to the hospitalist service for admission and management of the above stated findings. HOSPITAL COURSE: CHAZ ANDERSON is a 68 year old female a known past medical history of insulin- dependent diabetes mellitus, untreated chronic hepatitis C, depression, and dementia (patient is nonverbal at baseline) who was admitted 06/26/18 for hypothermia, hypoglycemia, and altered mental status. She was placed on D5 normal saline infusion for her hypoglycemia. The patient refuses to eat, despite continued efforts from staff. Additionally, her temperature is poorly regulated. She intermittently requires the bear hugger warming blanket. Concerned that the patient may be demonstrating possible end of life symptoms; she is too frail and thin to be able to regulate temperature and glucose. This was discussed with the patient's daughter, who expressed wishes to place patient under hospice care. The patient's daughter, Chikis, confirms that she wishes for the patient to be DNR/DNI. Initial urinalysis was questionable for UTI. Urine culture positive for E. coli and Klebsiella. Susceptible to ciprofloxacin. Will continue Cipro for approximately 5 days following discharge. Physical Exam Vital Signs: Temp Pulse Resp BP Pulse Ox 99.7 F 73 14 164/88 H 99 07/01/18 07:28 07/01/18 07:28 07/01/18 07:28 07/01/18 07:28 07/01/18 07:28 Intake & Output 06/30/18 07/01/18 07/02/18 06:59 06:59 06:59 Intake Total 2000 1100 1048 Output Total 620 500 Balance 7454 755 9534 Weight 38.5 kg 40.5 kg Results Laboratory Results: 06/29/18 05:43 06/29/18 05:43 06/26/18 13:10 Blood Blood Culture - Final NO GROWTH IN 5 DAYS 06/26/18 11:05 Blood Blood Culture - Final NO GROWTH IN 5 DAYS 06/26/18 06/26/18 18:15 18:15 Creatine Kinase 25 L Troponin I < 0.012 Impressions: Chest X-Ray 06/26/18 10:11 IMPRESSION: NO ACUTE RADIOGRAPHIC FINDING IN THE CHEST. Head CT 06/26/18 10:49 IMPRESSION: CHRONIC CHANGES OF ATROPHY AND MICROVASCULAR ISCHEMIA. NO ACUTE PROCESS. EVIDENCE OF ACUTE STROKE: NO. Plan Discharge Plan: DISCHARGE TO [facility] HOSP[facility]. CONTINUE CIPROFLOXACIN PO FOR AN ADDITIONAL 5 DAYS Time Spent: Greater than 30 Minutes
[2018-07-01 14:04] VITALS: BP 178/87
[2018-07-02] MEDS ORDERED: DOCUSATE SODIUM 100 MG CAPSULE PO SCH (10:00)
== END 2018-07-01 17:25 | DRG 637 ==
LOC: ER 09:28 → EH 13:38 → EEVIPCON 13:38 → 3N 18:00
PROVIDERS: ADMIT Internal Medicine; ATTEND Internal Medicine
DX: E11.649 Type 2 diabetes mellitus with hypoglycemia without coma (principal); E43 Unspecified severe protein-calorie malnutrition; Z68.1 Body mass index [BMI] 19.9 or less, adult; E78.00 Pure hypercholesterolemia, unspecified; I10 Essential (primary) hypertension; K21.9 Gastro-esophageal reflux disease without esophagitis; T68.XXXA Hypothermia, initial encounter; R33.9 Retention of urine, unspecified; B19.20 Unspecified viral hepatitis C without hepatic coma; F03.90 Unspecified dementia, unspecified severity, without behavioral disturbance, psychotic disturbance, mood disturbance, and anxiety; Z79.4 Long term (current) use of insulin; Z79.899 Other long term (current) drug therapy
CPT/HCPCS: 36415; 51702; 70450; 71045; 80048; 80053; 80307; 81001; 82010; 82533; 82550; 82962; 83036; 83525; 83605; 83735; 84100; 84134; 84206; 84439; 84443; 84481; 84484; 84681; 85025; 85027; 85384; 87040; 87086; 87088; 87186; 93005; 93010; 96365; 96375; 99291; J0360; J0696; J0744; J1644; J3475; J3480; J3490; S0028